=== PATIENT | male | born 1985 | race Caucasian/White ===

== ENCOUNTER 2016-09-04 00:52 | Emergency (ER) | payer SELFPAY ==
[2016-09-04 01:06] VITALS: BP 123/71
--- NOTE | 2016-09-04 02:15 | EDM.PDOC ---
ED HPI Behavioral Health - General Chief Complaint: Behavioral/Psych Stated Complaint: ANXIETY/DEPRESSION Time Seen by Provider: 09/04/16 01:08 Source of Information: Reports: Patient, RN notes reviewed Exam Limitations: Reports: No limitations - History of Present Illness INITIAL COMMENTS - FREE TEXT/NARRATIVE: The patient states that she broke up with his girlfriend, with whom he was living in [place], 2 days ago, 09/02/2016, then came to [place]. He states that he has family here, but they do not get along, therefore he is homeless. He came to the ED, looking for a place to sleep. He states that he does not have any medical concerns. He is not suicidal or homicidal. He states that he is feeling anxious, because he left his Klonopin back in [place]. He did not contact his prescribing physician, Dr. Timmons, to see if he could get a refill. Public records indicate that the patient was arrested 09/01/2016 for drug charges. - Related Data Allergies Allergy/AdvReac Type Severity Reaction Status Date / Time acetaminophen [From Tylenol] Allergy Other Verified 09/04/16 01:06 ibuprofen Allergy Swelling Verified 09/04/16 01:06 Home Medications: Home Meds ClonazePAM [KlonoPIN] 1 mg PO BEDTIME 11/12/14 [History] Past Medical History Gastrointestinal History: Reports: PUD Psychiatric History: Reports: Anxiety, Depression - Infectious Disease History Infectious Disease History: Reports: Hepatitis C - Past Surgical History GI Surgical History: Reports: Cholecystectomy, Colonoscopy, EGD Social & Family History - Family History Family Medical History: Noncontributory - Tobacco Use Smoking Status *Q: Current Every Day Smoker Years of Tobacco use: 10 Packs/Tins Daily: 1 - Caffeine Use Caffeine Use: Reports: Coffee - Alcohol Use Alcohol Use History: No Days Per Week of Alcohol Use: 0 - Recreational Drug Use Recreational Drug Use: Yes Drug Use in Last 12 Months: Yes Recreational Drug Type: Reports: Marijuana/Hashish, Methamphetamine Recreational Drug Use Frequency: Daily - Living Situation & Occupation Living situation: Reports: single, alone (Homeless) Occupation: unemployed ED ROS GENERAL - Review of Systems Review Of Systems: See Below Constitutional: Reports: no symptoms HEENT: Reports: Other (Recent viral URI symptoms) Respiratory: Reports: No Symptoms Cardiovascular: Reports: No symptoms Endocrine: Reports: no symptoms GI/Abdominal: Reports: No symptoms : Reports: no symptoms Musculoskeletal: Reports: no symptoms Skin: Reports: no symptoms Neurological: Reports: No Symptoms Psychiatric: Reports: Anxiety Hematologic/Lymphatic: Reports: no symptoms Immunologic: Reports: no symptoms ED EXAM, BEHAVIORAL HEALTH - Physical Exam Exam: See Below Exam Limited By: No limitations General Appearance: alert, WD/WN, no apparent distress Eye Exam: bilateral eye: EOMI, normal inspection Ears: normal external exam, hearing grossly normal Nose: normal inspection, no blood Throat/Mouth: Normal inspection, Normal lips, Normal voice, No airway compromise Head: atraumatic, normocephalic Neck: normal inspection, full range of motion Respiratory/Chest: no respiratory distress, lungs clear, normal breath sounds, no accessory muscle use Cardiovascular: normal peripheral pulses, regular rate, rhythm, no gallop, no JVD, no murmur, no rub GI/Abdominal: normal bowel sounds, soft, non tender, no organomegaly, no distention, no abnormal bruit, no mass (Male) Exam: Deferred Rectal (Males) Exam: Deferred Back Exam: normal inspection, full range of motion, NT Extremities: normal inspection, normal range of motion, no pedal edema, normal capillary refill Neurological: alert, normal cognition, no motor/sensory deficits, oriented x 3 Psychiatric: normal affect Skin Exam: Warm, Dry, Intact, Normal color, No rash COURSE, BEHAVIORAL HEALTH COMP - Course Vital Signs: Last Vital Signs Temp 36.1 C 09/04/16 01:02 Pulse 85 09/04/16 01:02 Resp 16 09/04/16 01:02 BP 123/71 09/04/16 01:02 Pulse Ox 98 09/04/16 01:02 Re-Assessment/Re-Exam: The patient is here because he is homeless, and is looking for a place to sleep. He has no medical concerns. The patient is also complaining of anxiety , stating that he left his Klonopin back in [place], however, he made no effort to reach his prescribing physician yesterday. I believe it would be inappropriate to prescribe him Klonopin. He can contact his PCP in the morning. The police are here in the ED for a different matter, and informed us that they have hotel vouchers. They are willing to give the patient one. Departure - Departure Time of Disposition: 02:12 Disposition: Home, Self-Care 01 Condition: good Clinical Impression: Homeless, Anxiety Referrals: Gm Timmons MD [Primary Care Provider] - Forms: ED Department Discharge Additional Instructions: You were seen in the emergency room for homelessness and anxiety. The police have provided you with a hotel voucher. Contact your PCP, Dr. Timmons, in the morning to arrange for a refill of your Klonopin. If any other problems, please do not hesitate to return to the ER.
== END 2016-09-04 02:30 | disposition home or self-care (01) ==
LOC: JD.ED 00:52
DX: F41.9 Anxiety disorder, unspecified (principal); Z59.0 Homelessness; F17.210 Nicotine dependence, cigarettes, uncomplicated; F32.9 Major depressive disorder, single episode, unspecified; Z88.6 Allergy status to analgesic agent
CPT/HCPCS: 99282; 99283

== ENCOUNTER 2017-02-26 03:06 | Emergency (ER) | payer MEDICAID ==
[2017-02-26] MEDS ORDERED: cloNIDine 0.1 MG Tab PO ONE (03:19)
[2017-02-26] MEDS ORDERED: Ondansetron 4 MG Tab.DIS PO ONE (03:20)
[2017-02-26] MEDS ORDERED: LORazepam 1 MG Tab PO ONE (03:20)
--- NOTE | 2017-02-26 03:24 | EDM.PDOCBH ---
ED HPI GENERAL MEDICAL PROBLEM - General Chief Complaint: Drug or Alcohol Abuse Stated Complaint: anxiety attack Time Seen by Provider: 02/26/17 03:19 Source of Information: Reports: Patient History Limitations: Reports: No Limitations - History of Present Illness INITIAL COMMENTS - FREE TEXT/NARRATIVE: 31-year-old male presents the ED essentially suffering from drug withdrawal. Patient admits to being an addict hand primarily using methamphetamines but also opiates in the way of her when. Last use was yesterday. Used both methamphetamines and heroin. Awoke yesterday morning with vomiting and has had 3 -4 loose watery stools since. Persistent rhinorrhea. Agitation and restlessness and unable to relax her fall asleep. He has appoint with [facility] later this morning to pursue a placement for drug and alcohol addiction. Came to the ED seeking some resolution of the symptoms as these findings and quite intolerable. Intermittent abdominal cramping pain and feeling anxious. Usually uses Klonopin 1 mg morning and bedtime which have controlled his symptoms in the past of anxiety and craving for drugs. Onset: Sudden Onset Date: 02/25/17 Duration: Hour(s): (Has been having symptoms for about 16 hours.) Location: Reports: Generalized Quality: Reports: Ache Severity: Moderate Improves with: Reports: None Context: Reports: Other (Drug withdrawal from opiates and methamphetamine.) Associated Symptoms: Reports: Diaphoresis, Loss of Appetite, Malaise, Nausea/ Vomiting, Other (Diarrhea and abdominal cramps.). 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: Other (see below) (None.) Generalized Pain Score (Numeric/FACES): 8 - Related Data Allergies Allergy/AdvReac Type Severity Reaction Status Date / Time acetaminophen [From Tylenol] Allergy Other Verified 09/04/16 01:06 ibuprofen Allergy Swelling Verified 09/04/16 01:06 Home Meds: Home Meds ClonazePAM [KlonoPIN] 1 mg PO BEDTIME 11/12/14 [History] ClonazePAM [KlonoPIN] 1 mg PO BID #20 tab 02/26/17 [Rx] Past Medical History - Past Health History Medical/Surgical History: Denies Medical/Surgical History Gastrointestinal History: Reports: PUD Other Gastrointestinal History: Ulcerative cholistis Psychiatric History: Reports: Anxiety, Depression - Infectious Disease History Infectious Disease History: Reports: Hepatitis C - Past Surgical History GI Surgical History: Reports: Cholecystectomy, Colonoscopy, EGD Social & Family History - Family History Family Medical History: Noncontributory - Tobacco Use Smoking Status *Q: Current Every Day Smoker Years of Tobacco use: 10 Packs/Tins Daily: 1 Used Tobacco, but Quit: No Month Tobacco Last Used: May Second Hand Smoke Exposure: Yes - Caffeine Use Caffeine Use: Reports: Coffee - Alcohol Use Days Per Week of Alcohol Use: 0 - Recreational Drug Use Recreational Drug Use: Yes Drug Use in Last 12 Months: Yes Recreational Drug Type: Reports: Marijuana/Hashish, Methamphetamine Recreational Drug Use Frequency: Daily Recreational Drug Last Use: February - Living Situation & Occupation Living situation: Reports: Single, Alone Occupation: Unemployed ED ROS GENERAL - Review of Systems Review Of Systems: See Below Constitutional: Reports: Chills, Malaise, Weakness, Fatigue, Decreased Appetite , Weight Loss. Denies: Fever HEENT: Reports: No Symptoms (Excessive runny nose of clear secretions.), Rhinitis Respiratory: Reports: Shortness of Breath, Cough. Denies: Wheezing, Pleuritic Chest Pain (Subjective feeling of being short of breath.), Sputum (Occasional cough due to cigarette smoking.), Hemoptysis Cardiovascular: Reports: Lightheadedness, Palpitations. Denies: Chest Pain, Blood Pressure Problem, Claudication, Orthopnea Endocrine: Reports: Fatigue GI/Abdominal: Reports: Abdominal Pain, Diarrhea (Loose stools. No blood noted), Nausea (Cramping primarily.), Vomiting : Reports: No Symptoms Musculoskeletal: Reports: Joint Pain (Particularly his knees and lower extremities. Feels lower extremities to be quite restless) Skin: Reports: Diaphoresis Neurological: Reports: Headache, Weakness. Denies: Numbness, Paresthesia, Pre- Existing Deficit, Seizure, Tingling, Tremors, Trouble Speaking Psychiatric: Reports: Agitation, Anxiety (Mild), Cravings (States he does feel like using medicated drugs at this time), Mood Lability. Denies: Hallucinations , Homicidal Ideation, Suicidal Ideation ( as part of the reason he came to the hospital.) Hematologic/Lymphatic: Reports: No Symptoms Immunologic: Reports: No Symptoms ED EXAM, BEHAVIORAL HEALTH - Physical Exam Exam: See Below Exam Limited By: No Limitations General Appearance: Alert, WD/WN, Anxious, Mild Distress Eye Exam: Bilateral Eye: Normal Inspection (No jaundice or nystagmus.) Nose: Other (Does have the snuffles with profuse clear rhinorrhea) Throat/Mouth: Normal Inspection, Normal Lips, Normal Oropharynx, Other Head: Atraumatic, Normocephalic (Tongue is coated and dry) Neck: Normal Inspection, Supple, Non-Tender, Full Range of Motion. No: Lymphadenopathy (L), Lymphadenopathy (R) Respiratory/Chest: No Respiratory Distress, Lungs Clear, Normal Breath Sounds, No Accessory Muscle Use Cardiovascular: Normal Peripheral Pulses, Regular Rate, Rhythm, No Edema, No Rub , Tachycardia GI/Abdominal: Normal Bowel Sounds, Soft, Non-Tender, No Organomegaly, No Distention, No Abnormal Bruit, No Mass, Pelvis Stable Back Exam: Normal Inspection, Full Range of Motion. No: CVA Tenderness (L), CVA Tenderness (R) Extremities: Other (Evidence of needle track pandya both antecubital fossa zone forearms.) Neurological: Alert, Normal Cognition, Normal Gait, Normal Reflexes, No Motor/ Sensory Deficits, Oriented x 3 Psychiatric: Normal Affect, Normal Cognition, Normal Mood, Oriented. No: Mu-Ism Delusions, Suicidal Thoughts, Tangential Thoughts, Auditory Hallucinations, Visual Hallucinations Skin Exam: Warm, Dry, Intact, Normal color, Other (No signs of infiltrate marked infections.) COURSE, BEHAVIORAL HEALTH COMP - Course Vital Signs: Last Vital Signs Temp 36.9 C 02/26/17 03:13 Pulse 102 H 02/26/17 03:13 Resp 18 02/26/17 03:13 BP 145/92 H 02/26/17 03:27 Pulse Ox 100 02/26/17 03:13 Orders, Labs, Meds: Medications Discontinued Medications Generic Name Dose Route Start Last Admin Trade Name Freq PRN Reason Stop Dose Admin Clonidine HCl 0.1 mg 02/26/17 03:19 02/26/17 03:27 Catapres PO 02/26/17 03:20 0.1 mg ONETIME ONE Administration Lorazepam 1 mg 02/26/17 03:20 02/26/17 03:28 Ativan PO 02/26/17 03:21 1 mg ONETIME ONE Administration Ondansetron HCl 4 mg 02/26/17 03:20 02/26/17 03:27 Zofran Odt PO 02/26/17 03:21 4 mg ONETIME ONE Administration Re-Assessment/Re-Exam: 31-year-old male who has chronic problems with addiction to drugs position of the ED primarily with drug withdrawal symptoms. Last used heroin and methamphetamines the day before yesterday. Awoke yesterday morning with nausea and vomiting. Socially he developed abdominal cramping pain and loose watery stools and profuse rhinorrhea. Those restless and anxious and aching in his lower extremities feels restless legs. Usually is on Klonopin 1 mg twice a day but he's not been on this for a couple of weeks since he left [place] where his primary care physician is. Other than mild resting tachycardia he appears to be functioning fairly well. Plan Zofran 4 mg sublingual. Clonidine 0.1 mg by mouth with Ativan 1 mg by mouth. Patient is to meet his father at 0630 hrs. with plans to attend [facility] when it opens this morning as he has no appointment to meet and drug addiction counselor. Re-Assessment/Re-Exam Date: 02/26/17 (Patient has been able to sleep in the department for the last hour and a half. He'll be discharged shortly as he has plans to meet up with his father at 0630 hrs. Plans are to follow-up with [facility] o'clock this morning.) Departure - Departure Time of Disposition: 07:00 Disposition: Home, Self-Care 01 Condition: Fair Clinical Impression: Drug withdrawal Qualifiers: Substance type: opioid Qualified Code(s): F11.23 - Opioid dependence with withdrawal - Discharge Information Prescriptions: ClonazePAM [KlonoPIN] 1 mg PO BID #20 tab Instructions: Chemical Dependency Referrals: PCP,None [Primary Care Provider] - Additional Instructions: Evaluation the emergency room this morning in regards to acute symptoms secondary to withdrawal from opiates and methamphetamine that is been used in the last several days. Symptoms of nausea vomiting and restlessness diarrhea and marked rhinorrhea identified. There treated with Klonopin 0.1 mg by mouth with Ativan 1 mg by mouth in the ED and Zofran 4 mg under the tongue to provide relief of nausea. I did write a prescription for Klonopin 1 mg bedtime and morning as you have been taking this prior. 20 tablets were provided. He'll need to follow-up with primary care physician or psychiatrist for further medication in this regard.
[2017-02-26 03:28] VITALS: BP 145/92
== END 2017-02-26 07:56 | disposition home or self-care (01) ==
LOC: JD.ED 03:06
DX: F11.23 Opioid dependence with withdrawal (principal); F32.9 Major depressive disorder, single episode, unspecified; Z90.49 Acquired absence of other specified parts of digestive tract; F17.210 Nicotine dependence, cigarettes, uncomplicated; Z88.6 Allergy status to analgesic agent
CPT/HCPCS: 99284; A9270

== ENCOUNTER 2017-04-12 04:30 | Emergency (ER) | payer MEDICAID ==
[2017-04-12] MEDS ORDERED: Lactated Ringers 1,000 ML IV ONE (05:34)
[2017-04-12] MEDS ORDERED: Ondansetron 4 MG/2 ML SDV IVPUSH ONE (05:34)
--- NOTE | 2017-04-12 05:34 | EDM.PDOC ---
<Mohan Mcginnis - Last Filed: 04/12/17 05:25> ED HPI GENERAL MEDICAL PROBLEM - General Chief Complaint: Abdominal Pain Stated Complaint: SEVERE ABDOMINAL PAIN ULCER AND COLD SYMPTOMS Time Seen by Provider: 04/12/17 05:25 Abdomen Pain Score (Numeric/FACES): 8 - Related Data Allergies Allergy/AdvReac Type Severity Reaction Status Date / Time acetaminophen [From Tylenol] Allergy Other Verified 04/12/17 04:44 ibuprofen Allergy Swelling Verified 04/12/17 04:44 Home Meds: Home Meds ClonazePAM [KlonoPIN] 1 mg PO TID 04/12/17 [History] Omeprazole Magnesium [Prilosec Otc] 20 mg PO DAILY 04/12/17 [History] Ondansetron [Zofran ODT] 4 mg PO Q6H PRN #20 tab.dis 04/12/17 [Rx] Sulfamethoxazole/Trimethoprim [Bactrim Ds Tablet] 1 each PO BID #6 tablet [Rx] traMADol [Ultram] 50 - 100 mg PO Q6H PRN #10 tablet 04/12/17 [Rx] Past Medical History - Past Health History Medical/Surgical History: Denies Medical/Surgical History Gastrointestinal History: Reports: Hepatitis, PUD Other Gastrointestinal History: Ulcerative cholistis Musculoskeletal History: Reports: Fracture Neurological History: Reports: Migraines, Seizure Psychiatric History: Reports: Anxiety, Depression - Infectious Disease History Infectious Disease History: Reports: Hepatitis C - Past Surgical History GI Surgical History: Reports: Cholecystectomy, Colonoscopy, EGD Musculoskeletal Surgical History: Reports: ORIF Social & Family History - Family History Family Medical History: Noncontributory - Tobacco Use Smoking Status *Q: Current Some Day Smoker Years of Tobacco use: 20 Packs/Tins Daily: 0.2 Used Tobacco, but Quit: No Month Tobacco Last Used: May Second Hand Smoke Exposure: Yes - Caffeine Use Caffeine Use: Reports: None - Alcohol Use Days Per Week of Alcohol Use: 0 - Recreational Drug Use Recreational Drug Use: No Drug Use in Last 12 Months: Yes Recreational Drug Type: Reports: Marijuana/Hashish, Methamphetamine Recreational Drug Use Frequency: Daily Recreational Drug Last Use: February - Living Situation & Occupation Living situation: Reports: Single, Alone Occupation: Unemployed Course - Vital Signs Last Recorded V/S: Last Vital Signs Temp 98 F 04/12/17 04:39 Pulse 100 11/24/17 04:39 Resp 16 04/12/17 04:39 BP 144/94 H 04/12/17 04:39 Pulse Ox 94 L 04/12/17 04:39 - Orders/Labs/Meds Orders: Active Orders 24 hr Category Date Time Status Sodium Chloride 0.9% [Normal Saline] 1,000 ml Med 04/12/17 07:15 Active IV ASDIRECTED Medication Orders Sodium Chloride (Normal Saline) 1,000 mls @ 200 mls/hr IV ASDIRECTED SIVAKUMAR Last Admin: 04/12/17 07:17 Dose: 200 mls/hr Labs: Laboratory Tests 04/12/17 04/12/17 04/12/17 Range/Units 05:30 05:40 05:40 WBC 7.39 (4.23-9.07) K/mm3 RBC 5.06 (4.63-6.08) M/mm3 Hgb 15.2 (13.7-17.5) gm/L Hct 43.9 (40.1-51.0) % MCV 86.8 (79.0-92.2) fl MCH 30.0 (25.7-32.2) pg MCHC 34.6 (32.2-35.5) g/dl RDW Std Deviation 44.8 H (35.1-43.9) fL Plt Count 251 (163-337) K/mm3 MPV 8.9 L (9.4-12.3) fl Neutrophils % (Manual) 62 H (40-60) % Band Neutrophils % 0 (0-10) % Lymphocytes % (Manual) 30 (20-40) % Atypical Lymphs % 0 % Monocytes % (Manual) 5 (2-10) % Eosinophils % (Manual) 1 (0.8-7.0) % Basophils % (Manual) 2 H (0.2-1.2) Platelet Estimate Adequate Plt Morphology Comment Normal RBC Morph Comment Normal Sodium 141 (136-145) mEq/L Potassium 3.4 L (3.5-5.1) mEq/L Chloride 104 (98-107) mEq/L Carbon Dioxide 27 (21-32) mEq/L Anion Gap 13.4 (5-15) BUN 17 (7-18) mg/dL Creatinine 0.9 (0.7-1.3) mg/dL Est Cr Clr Drug Dosing 111.19 mL/min Estimated GFR (MDRD) > 60 (>60) mL/min BUN/Creatinine Ratio 18.9 H (14-18) Glucose 102 (74-106) mg/dL Calcium 9.3 (8.5-10.1) mg/dL Total Bilirubin 0.9 (0.2-1.0) mg/dL AST 45 H (15-37) U/L ALT 69 H (16-63) U/L Alkaline Phosphatase 63 (46-116) U/L C-Reactive Protein < 0.2 (<1.0) mg/dL Total Protein 7.8 (6.4-8.2) g/dl Albumin 4.2 (3.4-5.0) g/dl Globulin 3.6 gm/dL Albumin/Globulin Ratio 1.2 (1-2) Lipase 280 (73-393) U/L Urine Color (Yellow) Urine Appearance (Clear) Urine pH (5.0-8.0) Ur Specific Struthers (1.005-1.030) Urine Protein (Negative) Urine Glucose (UA) (Negative) Urine Ketones (Negative) Urine Occult Blood (Negative) Urine Nitrite (Negative) Urine Bilirubin (Negative) Urine Urobilinogen (0.2-1.0) Ur Leukocyte Esterase (Negative) Urine RBC (0-5) /hpf Urine WBC (0-5) /hpf Ur Epithelial Cells (0-5) /hpf Urine Bacteria (FEW) /hpf Urine Mucus (FEW) /hpf C.difficile [id number] Presumptive negative C. difficile Tox (PCR) Negative 04/12/17 Range/Units 07:15 WBC (4.23-9.07) K/mm3 RBC (4.63-6.08) M/mm3 Hgb (13.7-17.5) gm/L Hct (40.1-51.0) % MCV (79.0-92.2) fl MCH (25.7-32.2) pg MCHC (32.2-35.5) g/dl RDW Std Deviation (35.1-43.9) fL Plt Count (163-337) K/mm3 MPV (9.4-12.3) fl Neutrophils % (Manual) (40-60) % Band Neutrophils % (0-10) % Lymphocytes % (Manual) (20-40) % Atypical Lymphs % % Monocytes % (Manual) (2-10) % Eosinophils % (Manual) (0.8-7.0) % Basophils % (Manual) (0.2-1.2) Platelet Estimate Plt Morphology Comment RBC Morph Comment Sodium (136-145) mEq/L Potassium (3.5-5.1) mEq/L Chloride (98-107) mEq/L Carbon Dioxide (21-32) mEq/L Anion Gap (5-15) BUN (7-18) mg/dL Creatinine (0.7-1.3) mg/dL Est Cr Clr Drug Dosing mL/min Estimated GFR (MDRD) (>60) mL/min BUN/Creatinine Ratio (14-18) Glucose (74-106) mg/dL Calcium (8.5-10.1) mg/dL Total Bilirubin (0.2-1.0) mg/dL AST (15-37) U/L ALT (16-63) U/L Alkaline Phosphatase (46-116) U/L C-Reactive Protein (<1.0) mg/dL Total Protein (6.4-8.2) g/dl Albumin (3.4-5.0) g/dl Globulin gm/dL Albumin/Globulin Ratio (1-2) Lipase (73-393) U/L Urine Color Yellow (Yellow) Urine Appearance Clear (Clear) Urine pH 7.0 (5.0-8.0) Ur Specific Struthers 1.010 (1.005-1.030) Urine Protein Negative (Negative) Urine Glucose (UA) Negative (Negative) Urine Ketones Negative (Negative) Urine Occult Blood Negative (Negative) Urine Nitrite Negative (Negative) Urine Bilirubin Negative (Negative) Urine Urobilinogen 0.2 (0.2-1.0) Ur Leukocyte Esterase Negative (Negative) Urine RBC 0-5 (0-5) /hpf Urine WBC Not seen (0-5) /hpf Ur Epithelial Cells 0-5 (0-5) /hpf Urine Bacteria Not seen (FEW) /hpf Urine Mucus Not seen (FEW) /hpf C.difficile [id number] C. difficile Tox (PCR) Meds: Medications Generic Name Dose Route Start Last Admin Trade Name Freq PRN Reason Stop Dose Admin Sodium Chloride 1,000 mls @ 200 mls/hr 04/12/17 07:15 04/12/17 07:17 Normal Saline IV 200 mls/hr ASDIRECTED SIVAKUMAR Administration Discontinued Medications Generic Name Dose Route Start Last Admin Trade Name Kallie PRN Reason Stop Dose Admin Hydromorphone HCl 1 mg 04/12/17 07:07 04/12/17 07:14 Dilaudid IVPUSH 04/12/17 07:08 1 mg ONETIME ONE Administration Lactated Ringer's 1,000 mls @ 999 mls/hr 04/12/17 05:34 04/12/17 05:52 Ringers, Lactated IV 04/12/17 06:34 999 mls/hr .BOLUS ONE Administration Ondansetron HCl 4 mg 04/12/17 05:34 04/12/17 05:53 Zofran IVPUSH 04/12/17 05:35 4 mg ONETIME ONE Administration Departure - Departure Disposition: Home, Self-Care 01 Clinical Impression: Abdominal pain, Gastroenteritis - Discharge Information Prescriptions: Ondansetron [Zofran ODT] 4 mg PO Q6H PRN #20 tab.dis PRN Reason: Nausea/Vomiting Sulfamethoxazole/Trimethoprim [Bactrim Ds Tablet] 1 each PO BID #6 tablet traMADol [Ultram] 50 - 100 mg PO Q6H PRN #10 tablet PRN Reason: Pain Referrals: Mitch Horan Jr, MD [Primary Care Provider] - Forms: ED Department Discharge, ED Return to Work/School Form Additional Instructions: Take the bactrim 2 times per day for 3 days. Take the zofran for nausea or vomiting if you get any. Take the ultram for any abdominal cramps. Please return if you are worse. Follow up with your doctor next week. - My Orders Last 24 Hours: My Active Orders 04/12/17 07:15 Sodium Chloride 0.9% [Normal Saline] 1,000 ml IV ASDIRECTED - Assessment/Plan Last 24 Hours: My Active Orders 04/12/17 07:15 Sodium Chloride 0.9% [Normal Saline] 1,000 ml IV ASDIRECTED <Gm Mujica - Last Filed: 04/12/17 08:22> ED HPI GENERAL MEDICAL PROBLEM - General Source of Information: Reports: Patient History Limitations: Reports: No Limitations - History of Present Illness INITIAL COMMENTS - FREE TEXT/NARRATIVE: The patient presents with abdominal pain and diarrhea. He noticed some blood in it. He denies nausea or vomiting at this time. He does have a history of colitis and hepatitis C. He has no fever, chills, chest pain, and shortness of breath. He has no dysuria. He has no hematuria. He still has his appendix and gallbladder. Onset: Gradual Duration: Day(s): (Yesterday) Location: Reports: Abdomen Quality: Reports: Sharp Severity: Moderate Improves with: Reports: None Worsens with: Reports: None Associated Symptoms: Denies: Chest Pain, Fever/Chills, Nausea/Vomiting, Shortness of Breath ED ROS GENERAL - Review of Systems Review Of Systems: See Below Constitutional: Reports: No Symptoms HEENT: Reports: No Symptoms Respiratory: Reports: No Symptoms Cardiovascular: Reports: No Symptoms Endocrine: Reports: No Symptoms GI/Abdominal: Reports: Abdominal Pain, Diarrhea. Denies: Nausea, Vomiting Musculoskeletal: Reports: No Symptoms ED EXAM, GI/ABD - Physical Exam Exam: See Below Exam Limited By: No Limitations General Appearance: Alert, No Apparent Distress Ears: Normal External Exam Nose: Normal Inspection Head: Atraumatic, Normocephalic Neck: Normal Inspection Respiratory/Chest: No Respiratory Distress, Lungs Clear, Normal Breath Sounds Cardiovascular: Regular Rate, Rhythm, No Edema, No Murmur GI/Abdominal Exam: Soft, No Organomegaly, No Mass, Tender (generalized) Back Exam: Normal Inspection Extremities: Normal Inspection Course - Re-Assessments/Exams Free Text/Narrative Re-Assessment/Exam: 04/12/17 08:17 I am taking over for Dr Mcginnis. I ordered some dilaudid for the patient. His CBC was normal. His K was a little low at 3.4. His AST was slightly elevated at 45. His ALT was elevated at 69. His lipase was negative. His UA shows no UTI. His c-dif was negative. Departure - Departure Time of Disposition: 08:20 Condition: Good
[2017-04-12] MEDS ORDERED: HYDROmorphone 1 MG/ML Syringe IVPUSH ONE (07:07)
[2017-04-12] MEDS ORDERED: Sodium Chloride 0.9% 1,000 ML IV SCH (07:15)
[2017-04-12 08:13] VITALS: BP 135/102
== END 2017-04-12 08:30 | disposition home or self-care (01) ==
LOC: JD.ED 04:30
DX: K52.9 Noninfective gastroenteritis and colitis, unspecified (principal); F17.210 Nicotine dependence, cigarettes, uncomplicated; Z86.19 Personal history of other infectious and parasitic diseases; Z88.6 Allergy status to analgesic agent; Z79.899 Other long term (current) drug therapy
CPT/HCPCS: 36415; 80053; 81001; 83690; 85025; 86140; 87493; 96361; 96374; 96375; 99284; J1170; J2405; J7040; J7120

== ENCOUNTER 2017-05-05 11:43 | Emergency (ER) | payer MEDICAID ==
[2017-05-05 11:59] VITALS: BP 146/101
[2017-05-05] MEDS ORDERED: Diphtheria,Pertussis(Acell),Tetanus Vaccine 0.5 ML SDV IM ONE (12:26)
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
[2017-05-05] MEDS ORDERED: Acetaminophen 325 MG Tab PO STA (13:24)
--- NOTE | 2017-05-05 13:25 | CT ---
Head CT Technique: Multiple axial sections through the brain were obtained. Intravenous contrast was not utilized. Comparison: Previous head CT exam of 12/18/08. Findings: Ventricles along with basal cisterns and sulci over convexities are mildly prominent. No abnormal parenchymal densities are seen. No evidence of intracranial hemorrhage. No midline shift or mass effect is seen. No acute calvarial abnormality is seen. No acute sinus finding is seen. Impression: 1. No acute intracranial abnormality is seen. Diagnostic code #1
--- NOTE | 2017-05-05 13:25 | CT ---
CT facial bones Technique: Multiple axial sections were obtained through the facial bones. Reconstructed coronal and sagittal images were reviewed. Findings: Mild mucosal thickening seen within the inferior left maxillary sinus. Paranasal sinuses shows no air-fluid levels. Mastoid sinuses and middle ear cavities are clear. No facial bone fracture is seen. Soft tissue injury is identified anterior to the mandible. Impression: 1. Incidental findings. No acute bony abnormality is seen on CT study of the facial bones. Diagnostic code #2
[2017-05-05] MEDS ORDERED: Lidocaine 1% 50 ML MDV INJECT STA (13:29)
== END 2017-05-05 16:05 | disposition home or self-care (01) ==
LOC: JD.ED 11:43
DX: S01.511A Laceration without foreign body of lip, initial encounter (principal); Z88.6 Allergy status to analgesic agent; Z23 Encounter for immunization; W51.XXXA Accidental striking against or bumped into by another person, initial encounter; Y92.009 Unspecified place in unspecified non-institutional (private) residence as the place of occurrence of the external cause
CPT/HCPCS: 12013; 70450; 70486; 90471; 90715; 99284; A9270; 99282-25

== ENCOUNTER 2017-06-09 09:17 | Emergency (ER) | payer MEDICAID ==
[2017-06-09 09:34] VITALS: BP 117/71
[2017-06-09] MEDS ORDERED: Ketorolac 0.5% Ophth Soln 5 ML Bottle EYELF ONE (10:35)
[2017-06-09] MEDS ORDERED: Ciprofloxacin 0.3% Ophth Soln 2.5 ML Bottle EYEBOTH ONE (10:36)
[2017-06-09] MEDS ORDERED: HYDROmorphone 1 MG/ML Syringe IM ONE (10:37)
[2017-06-09] MEDS ORDERED: Promethazine 25 MG/ML SDV IM ONE (10:37)
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
== END 2017-06-09 11:04 | disposition home or self-care (01) ==
LOC: JD.ED 09:17
DX: H16.133 Photokeratitis, bilateral (principal); F17.210 Nicotine dependence, cigarettes, uncomplicated; Z79.899 Other long term (current) drug therapy; Z88.6 Allergy status to analgesic agent; W89.8XXA Exposure to other man-made visible and ultraviolet light, initial encounter
CPT/HCPCS: 96372; 99283; A9270; J1170; J2550

== ENCOUNTER 2017-06-12 13:26 | Emergency (ER) | payer MEDICAID ==
[2017-06-12 13:41] VITALS: BP 129/82
--- NOTE | 2017-06-12 13:58 | EDM.PDOC ---
ED HPI GENERAL MEDICAL PROBLEM - General Chief Complaint: Gastrointestinal Problem Stated Complaint: VOMITING/ABDOMINAL PAIN Time Seen by Provider: 06/12/17 13:58 Source of Information: Reports: Patient - History of Present Illness INITIAL COMMENTS - FREE TEXT/NARRATIVE: Patient comes in today for evaluation for abdominal pain, nausea and vomiting. He states that his symptoms started last night with "burps that tasted like sulfur". Patient is currently having epigastric stomach pain, he denies any current heartburn or reflux symptoms. He is feeling nauseated and did vomit this morning. He denies any diarrhea. Patient states that he does have a history of GERD, had eaten some spicy chips. He does smoke as well, possibly one half pack cigarettes per day. He denies any alcohol intake, states he has not had alcohol in many years. He smokes marijuana on occasion, the last incident was approximately a month ago. He did have a history of meth use which was last using February, cocaine use many years ago. He also has a history of injecting these drugs which is how he contracted hepatitis C. He got this diagnosis approximately 2 years ago, he has not had any treatment for his hepatitis C but now has insurance and his PCP Dr. Horan has referred him to infectious disease/Dr. Herndon at [facility] in [place]. Patient has been told that he has a "bad liver" due to his hepatitis. Left Upper Abdomen Pain Score (Numeric/FACES): 10 - Related Data Allergies Allergy/AdvReac Type Severity Reaction Status Date / Time acetaminophen [From Tylenol] Allergy Other Verified 06/12/17 13:35 ibuprofen Allergy Swelling Verified 06/12/17 13:35 Home Meds: Home Meds ClonazePAM [KlonoPIN] 1 mg PO TID 04/12/17 [History] Omeprazole Magnesium [Prilosec Otc] 20 mg PO DAILY 04/12/17 [History] Sucralfate [Carafate] 1 gm PO TID #90 tablet 06/12/17 [Rx] Past Medical History - Past Health History Medical/Surgical History: Denies Medical/Surgical History Gastrointestinal History: Reports: GERD, Hepatitis, PUD Other Gastrointestinal History: Ulcerative colitis Musculoskeletal History: Reports: Fracture Other Musculoskeletal History: right hand Neurological History: Reports: Migraines, Seizure Psychiatric History: Reports: Anxiety, Depression - Infectious Disease History Infectious Disease History: Reports: Hepatitis C - Past Surgical History GI Surgical History: Reports: Cholecystectomy, Colonoscopy, EGD Musculoskeletal Surgical History: Reports: ORIF Social & Family History - Family History Family Medical History: Noncontributory - Tobacco Use Smoking Status *Q: Current Every Day Smoker Years of Tobacco use: 15 Packs/Tins Daily: 0.5 Used Tobacco, but Quit: No Month Tobacco Last Used: May Second Hand Smoke Exposure: No - Caffeine Use Caffeine Use: Reports: Coffee - Alcohol Use Days Per Week of Alcohol Use: 0 - Recreational Drug Use Recreational Drug Use: Yes Drug Use in Last 12 Months: Yes Recreational Drug Type: Reports: Marijuana/Hashish Recreational Drug Use Frequency: Binges Recreational Drug Last Use: February - Living Situation & Occupation Living situation: Reports: Single, Alone Occupation: Unemployed ED ROS GENERAL - Review of Systems Review Of Systems: See Below Constitutional: Reports: Weakness, Fatigue, Decreased Appetite. Denies: Fever, Chills, Malaise HEENT: Reports: No Symptoms Respiratory: Reports: No Symptoms Cardiovascular: Reports: No Symptoms Endocrine: Reports: No Symptoms GI/Abdominal: Reports: Abdominal Pain, Decreased Appetite, Nausea, Vomiting. Denies: Black Stool, Bloody Stool, Diarrhea, Difficulty Swallowing, Hematemesis , Hematochezia, Melena Musculoskeletal: Reports: No Symptoms Skin: Reports: No Symptoms Neurological: Reports: No Symptoms Psychiatric: Reports: No Symptoms Hematologic/Lymphatic: Reports: No Symptoms ED EXAM, GI/ABD - Physical Exam Exam: See Below General Appearance: Alert, WD/WN, Mild Distress Ears: Normal External Exam, Normal Canal, Normal TMs Nose: Normal Inspection, Normal Mucosa Throat/Mouth: Normal Inspection, Normal Oropharynx, Normal Voice Head: Atraumatic, Normocephalic Neck: Normal Inspection, Supple, Non-Tender Respiratory/Chest: No Respiratory Distress, Lungs Clear, Normal Breath Sounds Cardiovascular: Normal Peripheral Pulses, Regular Rate, Rhythm, No Murmur GI/Abdominal Exam: Normal Bowel Sounds, Soft, Tender (Diffuse mild tenderness, moderate epigastric tenderness. ) Neurological: Alert, Oriented Psychiatric: Normal Affect, Normal Mood Skin Exam: Warm, Dry, Intact Lymphatic: No Adenopathy Course - Vital Signs Last Recorded V/S: Last Vital Signs Temp 97.3 F 06/12/17 13:37 Pulse 88 06/12/17 13:37 Resp 12 06/12/17 13:37 BP 129/82 06/12/17 13:37 Pulse Ox 97 06/12/17 13:37 - Orders/Labs/Meds Orders: Active Orders 24 hr Category Date Time Status DRUG SCREEN, URINE [URCHEM] Stat Lab 06/12/17 16:18 Ordered Sodium Chloride 0.9% [Saline Flush] Med 06/12/17 16:36 Active 10 ml FLUSH ONETIME PRN Medication Orders Sodium Chloride (Saline Flush) 10 ml FLUSH ONETIME PRN PRN Reason: IV FLUSH Last Admin: 06/12/17 16:47 Dose: 10 ml Labs: Laboratory Tests 06/12/17 06/12/17 06/12/17 Range/Units 13:50 13:50 13:50 WBC 10.60 H (4.23-9.07) K/mm3 RBC 5.48 (4.63-6.08) M/mm3 Hgb 16.0 (13.7-17.5) gm/L Hct 47.0 (40.1-51.0) % MCV 85.8 (79.0-92.2) fl MCH 29.2 (25.7-32.2) pg MCHC 34.0 (32.2-35.5) g/dl RDW Std Deviation 41.3 (35.1-43.9) fL Plt Count 311 (163-337) K/mm3 MPV 9.5 (9.4-12.3) fl Neutrophils % (Manual) 77 H (40-60) % Band Neutrophils % 0 (0-10) % Lymphocytes % (Manual) 12 L (20-40) % Atypical Lymphs % 0 % Monocytes % (Manual) 10 (2-10) % Eosinophils % (Manual) 1 (0.8-7.0) % Basophils % (Manual) 0 L (0.2-1.2) Platelet Estimate Adequate Plt Morphology Comment Normal RBC Morph Comment Normal Sodium 140 (136-145) mEq/L Potassium 4.0 (3.5-5.1) mEq/L Chloride 104 (98-107) mEq/L Carbon Dioxide 26 (21-32) mEq/L Anion Gap 14.0 (5-15) BUN 13 (7-18) mg/dL Creatinine 0.7 (0.7-1.3) mg/dL Est Cr Clr Drug Dosing 141.64 mL/min Estimated GFR (MDRD) > 60 (>60) mL/min BUN/Creatinine Ratio 18.6 H (14-18) Glucose 112 H (74-106) mg/dL Calcium 8.7 (8.5-10.1) mg/dL Total Bilirubin 0.4 (0.2-1.0) mg/dL GGT 27 (15-85) U/L AST 78 H (15-37) U/L ALT 146 H (16-63) U/L Alkaline Phosphatase 82 (46-116) U/L Total Protein 7.2 (6.4-8.2) g/dl Albumin 3.6 (3.4-5.0) g/dl Globulin 3.6 gm/dL Albumin/Globulin Ratio 1.0 (1-2) Lipase 284 (73-393) U/L Urine Color (Yellow) Urine Appearance (Clear) Urine pH (5.0-8.0) Ur Specific [place] (1.005-1.030) Urine Protein (Negative) Urine Glucose (UA) (Negative) Urine Ketones (Negative) Urine Occult Blood (Negative) Urine Nitrite (Negative) Urine Bilirubin (Negative) Urine Urobilinogen (0.2-1.0) Ur Leukocyte Esterase (Negative) Urine RBC (0-5) /hpf Urine WBC (0-5) /hpf Ur Epithelial Cells (0-5) /hpf Urine Bacteria (FEW) /hpf Urine Mucus (FEW) /hpf Ethyl Alcohol 0.00 (0.00) gm% H. pylori IgG Antibody Negative (NEGATIVE) 06/12/17 Range/Units 16:18 WBC (4.23-9.07) K/mm3 RBC (4.63-6.08) M/mm3 Hgb (13.7-17.5) gm/L Hct (40.1-51.0) % MCV (79.0-92.2) fl MCH (25.7-32.2) pg MCHC (32.2-35.5) g/dl RDW Std Deviation (35.1-43.9) fL Plt Count (163-337) K/mm3 MPV (9.4-12.3) fl Neutrophils % (Manual) (40-60) % Band Neutrophils % (0-10) % Lymphocytes % (Manual) (20-40) % Atypical Lymphs % % Monocytes % (Manual) (2-10) % Eosinophils % (Manual) (0.8-7.0) % Basophils % (Manual) (0.2-1.2) Platelet Estimate Plt Morphology Comment RBC Morph Comment Sodium (136-145) mEq/L Potassium (3.5-5.1) mEq/L Chloride (98-107) mEq/L Carbon Dioxide (21-32) mEq/L Anion Gap (5-15) BUN (7-18) mg/dL Creatinine (0.7-1.3) mg/dL Est Cr Clr Drug Dosing mL/min Estimated GFR (MDRD) (>60) mL/min BUN/Creatinine Ratio (14-18) Glucose (74-106) mg/dL Calcium (8.5-10.1) mg/dL Total Bilirubin (0.2-1.0) mg/dL GGT (15-85) U/L AST (15-37) U/L ALT (16-63) U/L Alkaline Phosphatase (46-116) U/L Total Protein (6.4-8.2) g/dl Albumin (3.4-5.0) g/dl Globulin gm/dL Albumin/Globulin Ratio (1-2) Lipase (73-393) U/L Urine Color Yellow (Yellow) Urine Appearance Clear (Clear) Urine pH 7.0 (5.0-8.0) Ur Specific [place] 1.015 (1.005-1.030) Urine Protein Negative (Negative) Urine Glucose (UA) Negative (Negative) Urine Ketones Negative (Negative) Urine Occult Blood Negative (Negative) Urine Nitrite Negative (Negative) Urine Bilirubin Negative (Negative) Urine Urobilinogen 0.2 (0.2-1.0) Ur Leukocyte Esterase Negative (Negative) Urine RBC 0-5 (0-5) /hpf Urine WBC 0-5 (0-5) /hpf Ur Epithelial Cells 0-5 (0-5) /hpf Urine Bacteria Rare (FEW) /hpf Urine Mucus Not seen (FEW) /hpf Ethyl Alcohol (0.00) gm% H. pylori IgG Antibody (NEGATIVE) Meds: Medications Generic Name Dose Route Start Last Admin Trade Name Freq PRN Reason Stop Dose Admin Sodium Chloride 10 ml 06/12/17 16:36 06/12/17 16:47 Saline Flush FLUSH 10 ml ONETIME PRN Administration IV FLUSH Discontinued Medications Generic Name Dose Route Start Last Admin Trade Name Kallie PRN Reason Stop Dose Admin Al Hydroxide/Mg Hydroxide 30 0 ml 06/12/17 14:11 06/12/17 14:21 ml/ Lidocaine HCl 15 ml PO 06/12/17 14:12 45 ml ONETIME ONE Administration Diatrizoate Meglum/Diatrizoate Sod 90 ml 06/12/17 16:36 06/12/17 16:47 Gastrografin 37% PO 06/12/17 16:37 90 ml ONETIME ONE Administration Hydromorphone HCl 0.5 mg 06/12/17 14:11 06/12/17 14:22 Dilaudid IVPUSH 06/12/17 14:12 0.5 mg ONETIME ONE Administration Hydromorphone HCl 0.5 mg 06/12/17 15:30 06/12/17 15:35 Dilaudid IVPUSH 06/12/17 15:31 0.5 mg ONETIME ONE Administration Sodium Chloride 1,000 mls @ 999 mls/hr 06/12/17 14:11 06/12/17 14:21 Normal Saline IV 06/12/17 15:11 999 mls/hr ONETIME ONE Administration Iopamidol 125 ml 06/12/17 16:36 06/12/17 16:47 Isovue-300 (61%) IVPUSH 06/12/17 16:37 125 ml ONETIME ONE Administration Ondansetron HCl 4 mg 06/12/17 14:11 06/12/17 14:20 Zofran IVPUSH 06/12/17 14:12 4 mg ONETIME ONE Administration - Re-Assessments/Exams Free Text/Narrative Re-Assessment/Exam: WBC 7600 with 77% neutrophils and no bands. H. pylori was negative. CT of the abdomen and pelvis demonstrated a dilated stomach, patient did "chug "the last of his contrast just prior to leaving for CT. No other normality was identified. Patient has a diagnosis of hepatitis C and has not been treated for this. He reports that he is recently discussed this with his PCP and has been referred to infectious disease at [facility] in [place] but has not yet seen them. AST today 78, ALT 146, GGT 27. I did discuss with patient at length that he needs to get this addressed sooner rather than later to prevent long-term damage to his liver and patient verbalized understanding of this. He will call to check on status of appointment tomorrow. Patient is now pain-free, requesting to go home and I do feel that this is reasonable. Recommend bland diet as well as increased fluids. Also recommend that he consider smoking cessation. Will discharge home on Carafate 4 times a day he will continue his omeprazole and follow up with his PCP. 06/12/17 17:37 06/12/17 17:42 Departure - Departure Time of Disposition: 17:40 Disposition: Home, Self-Care 01 Condition: Good Clinical Impression: Epigastric pain GERD (gastroesophageal reflux disease) Qualifiers: Esophagitis presence: esophagitis presence not specified Qualified Code(s): K21.9 - Gastro-esophageal reflux disease without esophagitis - Discharge Information Prescriptions: Sucralfate [Carafate] 1 gm PO TID #90 tablet Referrals: Mitch Horan Jr, MD [Primary Care Provider] - Forms: ED Department Discharge - My Orders Last 24 Hours: My Active Orders 06/12/17 16:18 DRUG SCREEN, URINE [URCHEM] Stat 06/12/17 16:36 Sodium Chloride 0.9% [Saline Flush] 10 ml FLUSH ONETIME PRN - Assessment/Plan Last 24 Hours: My Active Orders 06/12/17 16:18 DRUG SCREEN, URINE [URCHEM] Stat 06/12/17 16:36 Sodium Chloride 0.9% [Saline Flush] 10 ml FLUSH ONETIME PRN
[2017-06-12] MEDS ORDERED: Ondansetron 4 MG/2 ML SDV IVPUSH ONE (14:11)
[2017-06-12] MEDS ORDERED: HYDROmorphone 0.5 MG/0.5 ML Syringe IVPUSH ONE ×2 (14:11→15:30)
[2017-06-12] MEDS ORDERED: Sodium Chloride 0.9% 1,000 ML IV ONE (14:11)
[2017-06-12] MEDS ORDERED: Alum Hydrox/Mag Hydrox/Simeth 30 ML, Lidocaine 2% 15 ML PO ONE ×2 (14:11)
[2017-06-12] MEDS ORDERED: Sodium Chloride 0.9% 10 ML Syringe FLUSH PRN (16:36)
[2017-06-12] MEDS ORDERED: Iopamidol 612 MG/ML 150 ML Bottle IVPUSH ONE (16:36)
[2017-06-12] MEDS ORDERED: Diatrizoate Meglumine/Diatrizoate Sodium 37% 120 ML Bottle PO ONE (16:36)
--- NOTE | 2017-06-12 17:12 | CT ---
CT abdomen and pelvis Technique: Multiple axial sections were obtained from above the dome of the diaphragm inferiorly through the pubic symphysis. Intravenous contrast was utilized. Oral contrast has been given which remains within the stomach. Delayed images were also obtained through the bladder. Findings: Visualized lung bases shows mild atelectasis within the right lung base. Liver shows no focal parenchymal abnormality. Dilated stomach containing contrast is seen. Spleen appears within normal limits. Adrenal glands show no nodule. Kidneys show symmetric contrast enhancement without hydronephrosis or mass. Pancreas is within normal limits. Aorta shows no aneurysmal dilatation. No retroperitoneal adenopathy or mesenteric abnormalities are seen. No pelvic mass or adenopathy is identified. Numerous fluid filled bowel loops are seen which show no dilatation which is felt to be incidental. Appendix is difficult to see because of numerous nonopacified bowel loops. No inflammatory change is seen. No free fluid is seen. Delayed images shows contrast within the distal ureters and within the bladder. Bone window settings were reviewed which appear within normal limits for the patient's age. Impression: 1. Dilated stomach containing contrast. Uncertain if this represents gastric outlet obstruction or represents contrast being ingested in one setting. Please correlate. If any further clinical questions remain, endoscopy could then be considered. 2. Other incidental findings. Nothing acute is otherwise appreciated. Diagnostic code #3
== END 2017-06-12 17:55 | disposition home or self-care (01) ==
LOC: JD.ED 13:26 → SUPCPDRO 13:26 → JD.ED 17:55
DX: K21.9 Gastro-esophageal reflux disease without esophagitis (principal); Z88.8 Allergy status to other drugs, medicaments and biological substances; Z88.6 Allergy status to analgesic agent; Z79.899 Other long term (current) drug therapy; F17.210 Nicotine dependence, cigarettes, uncomplicated
CPT/HCPCS: 36415; 74177; 80053; 80306; 81001; 82977; 83690; 85025; 86677; 96361; 96374; 96375; 96376; 99284; A9270; G0480; J1170; J2405; J7040; J7050; Q9963; Q9967

== ENCOUNTER 2017-06-17 14:35 | Emergency (ER) | payer MEDICAID ==
[2017-06-17 14:56] VITALS: BP 90/76
[2017-06-17] MEDS ORDERED: HYDROmorphone 0.5 MG/0.5 ML Syringe IVPUSH ONE ×2 (15:28→17:20)
[2017-06-17] MEDS ORDERED: Ondansetron 4 MG/2 ML SDV IVPUSH ONE (15:28)
[2017-06-17] MEDS ORDERED: Famotidine 20 MG/2 ML SDV IVPUSH ONE (15:28)
[2017-06-17] MEDS ORDERED: Sodium Chloride 0.9% 10 ML Syringe FLUSH PRN (15:28)
[2017-06-17] MEDS ORDERED: Sodium Chloride 0.9% 1,000 ML IV SCH (15:30)
--- NOTE | 2017-06-17 15:44 | EDM.PDOC ---
ED HPI GENERAL MEDICAL PROBLEM - General Chief Complaint: Abdominal Pain Stated Complaint: ABDOMINAL PAIN Time Seen by Provider: 06/17/17 14:54 Source of Information: Reports: Patient, RN Notes Reviewed - History of Present Illness INITIAL COMMENTS - FREE TEXT/NARRATIVE: 32-year-old male comes in with abdominal pain nausea vomiting and diarrhea. This started this past morning about 8 hours ago. Had about 8-10 episodes of watery diarrhea. He has had numerous episodes of vomiting. He does have upper abdominal pain and cramping. He did have similar symptoms about a week ago. That all did get better and he had been feeling fine the last few days up until this morning. He states he does have history of pancreatitis, history of "liver problems". Middle Abdominal Pain Score (Numeric/FACES): 10 - Related Data Allergies Allergy/AdvReac Type Severity Reaction Status Date / Time acetaminophen [From Tylenol] Allergy Other Verified 06/17/17 14:56 ibuprofen Allergy Swelling Verified 06/17/17 14:56 Home Meds: Home Meds ClonazePAM [KlonoPIN] 1 mg PO TID 04/12/17 [History] Omeprazole Magnesium [Prilosec Otc] 20 mg PO DAILY 04/12/17 [History] Sucralfate [Carafate] 1 gm PO TID #90 tablet 06/12/17 [Rx] HYDROmorphone [Dilaudid] 2 mg PO Q6HR PRN #6 tab 06/17/17 [Rx] Ondansetron [Zofran ODT] 4 mg PO Q6H PRN #7 tab.dis 06/17/17 [Rx] Past Medical History - Past Health History Medical/Surgical History: Denies Medical/Surgical History Gastrointestinal History: Reports: GERD, Hepatitis, PUD Other Gastrointestinal History: Ulcerative colitis Musculoskeletal History: Reports: Fracture Other Musculoskeletal History: right hand Neurological History: Reports: Migraines, Seizure Psychiatric History: Reports: Anxiety, Depression - Infectious Disease History Infectious Disease History: Reports: Hepatitis C - Past Surgical History GI Surgical History: Reports: Cholecystectomy, Colonoscopy, EGD Musculoskeletal Surgical History: Reports: ORIF Social & Family History - Family History Family Medical History: Noncontributory - Tobacco Use Smoking Status *Q: Current Every Day Smoker Years of Tobacco use: 10 Packs/Tins Daily: 0.5 Used Tobacco, but Quit: No Month Tobacco Last Used: May Second Hand Smoke Exposure: No - Caffeine Use Caffeine Use: Reports: None - Alcohol Use Days Per Week of Alcohol Use: 0 - Recreational Drug Use Recreational Drug Use: Yes Drug Use in Last 12 Months: Yes Recreational Drug Type: Reports: Cocaine, Methamphetamine Recreational Drug Use Frequency: Binges Recreational Drug Last Use: February - Living Situation & Occupation Living situation: Reports: Single, Alone Occupation: Unemployed ED ROS GENERAL - Review of Systems Review Of Systems: See Below Constitutional: Reports: Chills. Denies: Fever HEENT: Reports: Other (Mouth feels dry). Denies: Throat Pain Respiratory: Denies: Shortness of Breath, Wheezing Cardiovascular: Denies: Chest Pain GI/Abdominal: Reports: Abdominal Pain (Primarily upper mid abdomen), Diarrhea, Nausea (Watery), Vomiting. Denies: Hematochezia, Melena Musculoskeletal: Reports: No Symptoms Skin: Reports: No Symptoms Neurological: Reports: No Symptoms ED EXAM, GI/ABD - Physical Exam Exam: See Below General Appearance: Alert, Anxious, Moderate Distress Eyes: Bilateral: Normal Appearance Throat/Mouth: Normal Inspection, Normal Oropharynx Head: Atraumatic. No: Facial Swelling Neck: Supple Respiratory/Chest: No Respiratory Distress, Lungs Clear, Normal Breath Sounds. No: Rhonchi, Wheezing Cardiovascular: Tachycardia GI/Abdominal Exam: Soft, Tender (Mild tenderness upper mid abdomen and left upper quadrant. Lower abdomen nontender). No: Guarding Back Exam: No: CVA Tenderness (L), CVA Tenderness (R) Extremities: Normal Inspection, Normal Range of Motion. No: Pedal Edema, Leg Pain Neurological: Alert, Oriented, No Motor/Sensory Deficits Skin Exam: Warm, Dry, Normal Color Course - Vital Signs Last Recorded V/S: Last Vital Signs Temp 97.5 F 06/17/17 14:54 Pulse 109 H 06/17/17 14:54 Resp 20 06/17/17 14:54 BP 90/76 06/17/17 14:54 Pulse Ox 99 06/17/17 14:54 - Orders/Labs/Meds Labs: Laboratory Tests 06/17/17 06/17/17 Range/Units 15:10 15:10 WBC 8.24 (4.23-9.07) K/mm3 RBC 5.79 (4.63-6.08) M/mm3 Hgb 16.8 (13.7-17.5) gm/L Hct 50.1 (40.1-51.0) % MCV 86.5 (79.0-92.2) fl MCH 29.0 (25.7-32.2) pg MCHC 33.5 (32.2-35.5) g/dl RDW Std Deviation 42.9 (35.1-43.9) fL Plt Count 322 (163-337) K/mm3 MPV 9.1 L (9.4-12.3) fl Neut % (Auto) 68.9 H (34.0-67.9) % Lymph % (Auto) 19.8 L (21.8-53.1) % [place] % (Auto) 9.2 (5.3-12.2) % Eos % (Auto) 1.7 (0.8-7.0) Baso % (Auto) 0.2 (0.1-1.2) % Neut # (Auto) 5.67 H (1.78-5.38) K/mm3 Lymph # (Auto) 1.63 (1.32-3.57) K/mm3 [place] # (Auto) 0.76 (0.30-0.82) K/mm3 Eos # (Auto) 0.14 (0.04-0.54) K/mm3 Baso # (Auto) 0.02 (0.01-0.08) K/mm3 Sodium 142 (136-145) mEq/L Potassium 4.1 (3.5-5.1) mEq/L Chloride 104 (98-107) mEq/L Carbon Dioxide 31 (21-32) mEq/L Anion Gap 11.1 (5-15) BUN 16 (7-18) mg/dL Creatinine 1.0 (0.7-1.3) mg/dL Est Cr Clr Drug Dosing 99.15 mL/min Estimated GFR (MDRD) > 60 (>60) mL/min BUN/Creatinine Ratio 16.0 (14-18) Glucose 86 (74-106) mg/dL Calcium 9.4 (8.5-10.1) mg/dL Total Bilirubin 0.3 (0.2-1.0) mg/dL AST 53 H (15-37) U/L ALT 149 H (16-63) U/L Alkaline Phosphatase 100 (46-116) U/L Total Protein 8.0 (6.4-8.2) g/dl Albumin 4.1 (3.4-5.0) g/dl Globulin 3.9 gm/dL Albumin/Globulin Ratio 1.1 (1-2) Lipase 408 H (73-393) U/L Meds: Medications Discontinued Medications Generic Name Dose Route Start Last Admin Trade Name Roshanq PRN Reason Stop Dose Admin Famotidine 20 mg 06/17/17 15:28 06/17/17 15:36 Pepcid IVPUSH 06/17/17 15:29 20 mg ONETIME ONE Administration Hydromorphone HCl 0.5 mg 06/17/17 15:28 06/17/17 15:35 Dilaudid IVPUSH 06/17/17 15:29 0.5 mg ONETIME ONE Administration Hydromorphone HCl 0.5 mg 06/17/17 17:20 06/17/17 17:47 Dilaudid IVPUSH 06/17/17 17:21 0.5 mg ONETIME ONE Administration Sodium Chloride 1,000 mls @ 999 mls/hr 06/17/17 15:30 06/17/17 15:35 Normal Saline IV 999 mls/hr ONETIME SIVAKUMAR Administration Metoclopramide HCl 5 mg 06/17/17 17:20 06/17/17 17:42 Reglan IVPUSH 06/17/17 17:21 5 mg ONETIME ONE Administration Ondansetron HCl 4 mg 06/17/17 15:28 06/17/17 15:36 Zofran IVPUSH 06/17/17 15:29 4 mg ONETIME ONE Administration Sodium Chloride 10 ml 06/17/17 15:28 06/17/17 15:36 Saline Flush FLUSH 10 ml ASDIRECTED PRN Administration Keep Vein Open - Re-Assessments/Exams Free Text/Narrative Re-Assessment/Exam: 06/18/17 20:13. Labs came back relatively okay. Chemistries did not show dehydration. Lipase very slightly elevated. White blood count not elevated. Afebrile, not toxic looking in any way. I'm not going to CT him at this time. He has known history for substance abuse. His drug screen 5 days ago when presenting with similar symptoms was positive for marijuana, opioids and math. I have discussed this with patient. Discussed symptomatic care. He wants something for pain. He states with his history hepatitis is recommended that he not take anti-inflammatories and Tylenol when I did suggest describing a few hydrocodone. Therefore I have written very limited number of 2 mg Dilaudid to help for further discomfort. Zofran also prescribed. Discharge instructions as documented. Departure - Departure Time of Disposition: 18:10 Disposition: Home, Self-Care 01 Condition: Fair Clinical Impression: Abdominal pain Qualifiers: Abdominal location: upper abdomen, unspecified Qualified Code(s): R10.10 - Upper abdominal pain, unspecified Vomiting Qualifiers: Vomiting type: unspecified Vomiting Intractability: non-intractable Nausea presence: without nausea Qualified Code(s): R11.11 - Vomiting without nausea Diarrhea Qualifiers: Diarrhea type: unspecified type Qualified Code(s): R19.7 - Diarrhea, unspecified - Discharge Information Prescriptions: HYDROmorphone [Dilaudid] 2 mg PO Q6HR PRN #6 tab PRN Reason: Pain Ondansetron [Zofran ODT] 4 mg PO Q6H PRN #7 tab.dis PRN Reason: Nausea/Vomiting Instructions: Nausea and Vomiting, Adult, [id number], Abdominal Pain, Adult, [id number] Referrals: Mitch Horan Jr, MD [Primary Care Provider] - Forms: ED Department Discharge Additional Instructions: Clear liquids until tomorrow afternoon, then very careful bland diet as tolerated. Avoid all fatty, fried, spicy foods for at least the next 5-7 days. Probiotic available OTC 3 times daily for the next week, and if needed for further nausea or vomiting. Dilaudid 2 mg q 6 to 8 hr if needed for severe pain. Follow-up with your regular clinic provider if not much better within 2- 3 days as expected.
[2017-06-17] MEDS ORDERED: Metoclopramide 10 MG/2 ML SDV IVPUSH ONE (17:20)
== END 2017-06-17 18:22 | disposition home or self-care (01) ==
LOC: JD.ED 14:35
DX: R10.10 Upper abdominal pain, unspecified (principal); R19.7 Diarrhea, unspecified; R11.2 Nausea with vomiting, unspecified; F17.210 Nicotine dependence, cigarettes, uncomplicated; Z88.6 Allergy status to analgesic agent; Z88.8 Allergy status to other drugs, medicaments and biological substances; Z79.899 Other long term (current) drug therapy
CPT/HCPCS: 36415; 80053; 83690; 85025; 96361; 96374; 96375; 96376; 99284; J1170; J2405; J2765; J7040; J7050

== ENCOUNTER 2017-06-19 09:51 | Emergency (ER) | payer MEDICAID ==
[2017-06-19 10:06] VITALS: BP 126/78
[2017-06-19] MEDS ORDERED: HYDROmorphone 1 MG/ML Syringe IVPUSH ONE (10:38)
[2017-06-19] MEDS ORDERED: Metoclopramide 10 MG/2 ML SDV IVPUSH ONE (10:39)
--- NOTE | 2017-06-19 10:43 | EDM.PDOC ---
ED HPI GENERAL MEDICAL PROBLEM - General Chief Complaint: Abdominal Pain Stated Complaint: ABDOMINAL PAIN NOT BETTER Time Seen by Provider: 06/19/17 10:28 Source of Information: Reports: Patient History Limitations: Reports: No Limitations - History of Present Illness INITIAL COMMENTS - FREE TEXT/NARRATIVE: 32-year-old male presents to the ED with a seven-day history of recurrent nausea vomiting and profuse yellowish watery diarrhea. States on average she's having 7-10 bowel movements per day and almost anything he tries to eat or drink is coming back up. Denies any recent alcohol use. He was seen through the ED 2 days ago and diagnosed with viral gastroenteritis. Is possibilities picked up of foodborne illness. He has not been on any antibiotics in the last month. Has some chills but no defined fever. Diffuse abdominal cramping pain. CONTINUE throughout the night as well as the day. Feels weak. Does not feel lightheaded or dizzy. Denies any hematemesis or blood in the stool. Has a history of pancreatitis but he denies drinking alcohol for the last several years. His lipase when he was here 2 days ago was 408. The remainder of his labs were essentially normal other than some suggestion of hemoconcentration. Patient reports initial pain was left upper quadrant of the abdomen. Now seems to be more left lower quadrant of the abdomen. Onset: Sudden Onset Date: 06/12/17 Duration: Day(s):, Constant, Waxing/Waning Location: Reports: Abdomen (Constant abdominal pain with history of recurrent nausea vomiting and loose yellow watery diarrhea.) Quality: Reports: Ache, Sharp, Stabbing, Other (Cramping pain) Severity: Moderate (Current pain is 8 out of 10.) Improves with: Reports: None Worsens with: Reports: Eating (Anything he drinks or eats typically comes right back up. 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 He has hepatitis C and does not take acetaminophen due to concerns with liver problems.) Left Abdominal Pain Score (Numeric/FACES): 10 - Related Data Allergies Allergy/AdvReac Type Severity Reaction Status Date / Time acetaminophen [From Tylenol] Allergy Other Verified 06/19/17 10:00 ibuprofen Allergy Swelling Verified 06/19/17 10:00 Home Meds: Home Meds ClonazePAM [KlonoPIN] 1 mg PO TID 04/12/17 [History] Omeprazole Magnesium [Prilosec Otc] 20 mg PO DAILY 04/12/17 [History] Sucralfate [Carafate] 1 gm PO TID #90 tablet 06/12/17 [Rx] HYDROmorphone [Dilaudid] 2 mg PO Q6HR PRN #6 tab 06/17/17 [Rx] Ondansetron [Zofran ODT] 4 mg PO Q6H PRN #7 tab.dis 06/17/17 [Rx] Ciprofloxacin HCl [Cipro] 500 mg PO BID #14 tablet 06/19/17 [Rx] Dicyclomine [Bentyl] 20 mg PO Q6H PRN #8 tablet 06/19/17 [Rx] HYDROmorphone [Dilaudid] 2 mg PO Q6H PRN #5 tab 06/19/17 [Rx] Ondansetron [Zofran] 4 mg BUCCAL Q6H PRN #8 tab 06/19/17 [Rx] Past Medical History - Past Health History Medical/Surgical History: Denies Medical/Surgical History Gastrointestinal History: Reports: GERD, Hepatitis (Known to have hepatitis C.) , PUD Other Gastrointestinal History: Ulcerative colitis Musculoskeletal History: Reports: Fracture Other Musculoskeletal History: right hand Neurological History: Reports: Migraines, Seizure Psychiatric History: Reports: Anxiety, Depression - Infectious Disease History Infectious Disease History: Reports: Hepatitis C - Past Surgical History GI Surgical History: Reports: Cholecystectomy, Colonoscopy, EGD Musculoskeletal Surgical History: Reports: ORIF Social & Family History - Family History Family Medical History: Noncontributory - Tobacco Use Smoking Status *Q: Current Every Day Smoker Years of Tobacco use: 15 Packs/Tins Daily: 0.5 Used Tobacco, but Quit: No Month Tobacco Last Used: May Second Hand Smoke Exposure: No - Caffeine Use Caffeine Use: Reports: None - Alcohol Use Days Per Week of Alcohol Use: 0 - Recreational Drug Use Recreational Drug Use: Yes Drug Use in Last 12 Months: Yes Recreational Drug Type: Reports: Methamphetamine Recreational Drug Use Frequency: Binges Recreational Drug Last Use: February - Living Situation & Occupation Living situation: Reports: Single, Alone Occupation: Unemployed ED ROS GENERAL - Review of Systems Review Of Systems: See Below Constitutional: Reports: Chills, Malaise, Weakness, Fatigue, Decreased Appetite , Weight Loss HEENT: Reports: No Symptoms Respiratory: Reports: No Symptoms Cardiovascular: Reports: No Symptoms Endocrine: Reports: No Symptoms GI/Abdominal: Reports: Abdominal Pain, Diarrhea (Loose yellow watery diarrhea 7- 10 times per day.), Nausea, Vomiting. Denies: Hematemesis, Hematochezia : Reports: No Symptoms Musculoskeletal: Reports: No Symptoms Skin: Reports: No Symptoms Neurological: Reports: No Symptoms Psychiatric: Reports: No Symptoms Hematologic/Lymphatic: Reports: No Symptoms ED EXAM, GI/ABD - Physical Exam Exam: See Below Exam Limited By: No Limitations General Appearance: Alert, WD/WN, Mild Distress Eyes: Bilateral: Normal Appearance Throat/Mouth: Other (Tongue and lips are quite dry.) Head: Atraumatic, Normocephalic Neck: Normal Inspection, Supple, Non-Tender, Full Range of Motion. No: Carotid Bruit, Lymphadenopathy (L), Lymphadenopathy (R) Respiratory/Chest: No Respiratory Distress, Lungs Clear, Normal Breath Sounds, Chest Non-Tender, Other (No smell of ketones on his breath.) Cardiovascular: Normal Peripheral Pulses, Regular Rate, Rhythm, No Edema, No Gallop, No Murmur. No: Tachycardia GI/Abdominal Exam: No Organomegaly, No Distention, Guarding ( There is guarding with no rebound.), Tender (Mostly over the left hemicolon particularly in the distribution of the sigmoid colon.), Abnormal Bowel Sounds (Bowel sounds are hyperactive in all 4 quadrants.). No: Rigid, Rebound (Male) Exam: No Hernia Back Exam: Normal Inspection, Full Range of Motion. No: CVA Tenderness (L), CVA Tenderness (R) Extremities: Normal Inspection, Normal Range of Motion, Non-Tender, No Pedal Edema Neurological: Alert, Oriented, CN II-XII Intact, Normal Cognition, Normal Gait, Other (Has needle track pandya left antecubital fossa. He states he was last using methamphetamines intravenously about 2 weeks ago.) Psychiatric: Normal Affect, Normal Mood Skin Exam: Warm, Dry, Intact, Normal Color, No Rash Course - Vital Signs Last Recorded V/S: Last Vital Signs Temp 35.9 C 06/19/17 10:00 Pulse 83 06/19/17 10:00 Resp 18 06/19/17 10:00 BP 126/78 06/19/17 10:00 Pulse Ox 100 06/19/17 10:00 - Orders/Labs/Meds Orders: Active Orders 24 hr Category Date Time Status CULTURE STOOL + SHIGATOX [RM] Stat Lab 06/19/17 11:05 Ordered DRUG SCREEN, URINE [URCHEM] Stat Lab 06/19/17 10:41 Uncollected URINALYSIS W/MICROSCOPIC [UA W/MICROSCOPIC] [URIN] Stat Lab 06/19/17 10:41 Uncollected WBC, STOOL [OP] Stat Lab 06/19/17 11:05 Ordered Dextrose 5%-Lactated Ringers 1,000 ml Med 06/19/17 10:45 Active IV ASDIRECTED Dextrose 5%-Lactated Ringers 1,000 ml Med 06/19/17 12:15 Active IV ASDIRECTED Medication Orders Dextrose/Lactated Ringer's (Dextrose 5%-Lactated Ringers) 1,000 mls @ 999 mls/ hr IV ASDIRECTED SIVAKUMAR Last Admin: 06/19/17 11:09 Dose: 999 mls/hr Dextrose/Lactated Ringer's (Dextrose 5%-Lactated Ringers) 1,000 mls @ 999 mls/ hr IV ASDIRECTED SIVAKUMAR Last Admin: 06/19/17 12:10 Dose: 999 mls/hr Labs: Laboratory Tests 06/19/17 06/19/17 06/19/17 Range/Units 10:30 10:55 10:55 WBC 9.56 H (4.23-9.07) K/mm3 RBC 5.97 (4.63-6.08) M/mm3 Hgb 17.6 H (13.7-17.5) gm/L Hct 51.1 H (40.1-51.0) % MCV 85.6 (79.0-92.2) fl MCH 29.5 (25.7-32.2) pg MCHC 34.4 (32.2-35.5) g/dl RDW Std Deviation 42.8 (35.1-43.9) fL Plt Count 311 (163-337) K/mm3 MPV 8.7 L (9.4-12.3) fl Neutrophils % (Manual) 71 H (40-60) % Band Neutrophils % 0 (0-10) % Lymphocytes % (Manual) 18 L (20-40) % Atypical Lymphs % 0 % Monocytes % (Manual) 9 (2-10) % Eosinophils % (Manual) 2 (0.8-7.0) % Basophils % (Manual) 0 L (0.2-1.2) Platelet Estimate Adequate Anisocytosis 1+ slight RBC Morph Comment Abnormal Sodium 137 (136-145) mEq/L Potassium 4.4 (3.5-5.1) mEq/L Chloride 102 (98-107) mEq/L Carbon Dioxide 30 (21-32) mEq/L Anion Gap 9.4 (5-15) BUN 9 (7-18) mg/dL Creatinine 1.0 (0.7-1.3) mg/dL Est Cr Clr Drug Dosing 99.15 mL/min Estimated GFR (MDRD) > 60 (>60) mL/min BUN/Creatinine Ratio 9.0 L (14-18) Glucose 106 (74-106) mg/dL Lactic Acid (0.4-2.0) mmol/L Calcium 8.5 (8.5-10.1) mg/dL Total Bilirubin 0.3 (0.2-1.0) mg/dL AST 31 (15-37) U/L ALT 88 H (16-63) U/L Alkaline Phosphatase 74 (46-116) U/L C-Reactive Protein < 0.2 (<1.0) mg/dL Total Protein 6.2 L (6.4-8.2) g/dl Albumin 3.0 L (3.4-5.0) g/dl Globulin 3.2 gm/dL Albumin/Globulin Ratio 0.9 L (1-2) Amylase 91 (25-115) U/L Lipase 293 (73-393) U/L Ketones (0.0-0.3) mM C.difficile [id number] Presumptive negative C. difficile Tox (PCR) Negative 06/19/17 06/19/17 Range/Units 10:55 11:10 WBC (4.23-9.07) K/mm3 RBC (4.63-6.08) M/mm3 Hgb (13.7-17.5) gm/L Hct (40.1-51.0) % MCV (79.0-92.2) fl MCH (25.7-32.2) pg MCHC (32.2-35.5) g/dl RDW Std Deviation (35.1-43.9) fL Plt Count (163-337) K/mm3 MPV (9.4-12.3) fl Neutrophils % (Manual) (40-60) % Band Neutrophils % (0-10) % Lymphocytes % (Manual) (20-40) % Atypical Lymphs % % Monocytes % (Manual) (2-10) % Eosinophils % (Manual) (0.8-7.0) % Basophils % (Manual) (0.2-1.2) Platelet Estimate Anisocytosis RBC Morph Comment Sodium (136-145) mEq/L Potassium (3.5-5.1) mEq/L Chloride (98-107) mEq/L Carbon Dioxide (21-32) mEq/L Anion Gap (5-15) BUN (7-18) mg/dL Creatinine (0.7-1.3) mg/dL Est Cr Clr Drug Dosing mL/min Estimated GFR (MDRD) (>60) mL/min BUN/Creatinine Ratio (14-18) Glucose (74-106) mg/dL Lactic Acid 1.5 (0.4-2.0) mmol/L Calcium (8.5-10.1) mg/dL Total Bilirubin (0.2-1.0) mg/dL AST (15-37) U/L ALT (16-63) U/L Alkaline Phosphatase (46-116) U/L C-Reactive Protein (<1.0) mg/dL Total Protein (6.4-8.2) g/dl Albumin (3.4-5.0) g/dl Globulin gm/dL Albumin/Globulin Ratio (1-2) Amylase (25-115) U/L Lipase (73-393) U/L Ketones 0.2 (0.0-0.3) mM C.difficile [id number] C. difficile Tox (PCR) Meds: Medications Generic Name Dose Route Start Last Admin Trade Name Freq PRN Reason Stop Dose Admin Dextrose/Lactated Ringer's 1,000 mls @ 999 mls/hr 06/19/17 10:45 06/19/17 11: 09 Dextrose 5%-Lactated Ringers IV 999 mls/hr ASDIRECTED SIVAKUMAR Administration Dextrose/Lactated Ringer's 1,000 mls @ 999 mls/hr 06/19/17 12:15 06/19/17 12: 10 Dextrose 5%-Lactated Ringers IV 999 mls/hr ASDIRECTED SIVAKUMAR Administration Discontinued Medications Generic Name Dose Route Start Last Admin Trade Name Kallie PRN Reason Stop Dose Admin Dicyclomine HCl 20 mg 06/19/17 12:23 06/19/17 12:32 Bentyl PO 06/19/17 12:24 20 mg ONETIME ONE Administration Hydromorphone HCl 1 mg 06/19/17 10:38 06/19/17 11:03 Dilaudid IVPUSH 06/19/17 10:39 1 mg ONETIME ONE Administration Hydromorphone HCl 0.5 mg 06/19/17 12:23 06/19/17 12:32 Dilaudid IVPUSH 06/19/17 12:24 0.5 mg ONETIME ONE Administration Levofloxacin/Dextrose 500 mg/ 100 mls @ 100 mls/hr 06/19/17 12:05 06/19/17 12 :15 Premix IV 06/19/17 13:04 100 mls/hr ONETIME ONE Administration Metoclopramide HCl 10 mg 06/19/17 10:39 06/19/17 11:07 Reglan IVPUSH 06/19/17 10:40 10 mg ONETIME ONE Administration - Radiology Interpretation Free Text/Narrative:: 32-year-old male presents to the ED with a one-week history of reported intractable nausea vomiting and loose yellow watery diarrhea up to 10 times per day. Possibility of foodborne illness. No recent antibiotic usage in the last several weeks. Patient has a history of pancreatitis but denies drinking any alcohol for several years. He was seen through the ED 2 days ago and had a complete workup at which time he was found to be mildly hemoconcentrated with a serum lipase of 408 upper limits of normal. Plan stools will be obtained for culture and sensitivity and WBCs as well as C. difficile. IV will be D5 lactated Ringer's at open. Given Dilaudid 1 mg IV with Reglan 10 mg IV for nausea and pain relief. She labs include an amylase and lipase to be obtained. Exam reveals him to be quite tender in the left lower quadrant of the abdomen. The possibility of diverticulitis exists although there's been no blood. His history is suggestive of a possible foodborne illness. Of note the patient does have a history of opiate recreational drug abuse and possibility of withdrawal does exist. - Re-Assessments/Exams Free Text/Narrative Re-Assessment/Exam: 06/19/17 11:40 White count is 9.56 with 71% neutrophils no bands. Hemoglobin is 17.6 with a hematocrit of 51.1 indicating hemoconcentration. Platelet count is normal at 311,000. Sodium 137 potassium 4.4. Chloride 102 bicarbonate 30. Anion gap is 9.4 BUN is 9 creatinine is 1.0. GFR is greater than 60. Glucose is 106. Calcium 8.5. Liver function shows a bilirubin of 0.3. AST is 31 ALT is elevated at 88 compatible with hepatitis C. Patient knows he has this disorder. Alkaline phosphatase is 74. C-reactive protein was 0.2. Total protein is normal albumin fraction slightly low at 3.0 today's lipase is 293. 06/19/17 11:54 stool tested negative for C. difficile. 06/19/17 12:24 patient reports to nursing staff that his pain is increasing in his abdomen. I.e. crampy. Will give Dilaudid 0.5 mg IV and Bentyl 20 mg by mouth. Departure - Departure Time of Disposition: 13:15 Disposition: Home, Self-Care 01 Condition: Fair Clinical Impression: Gastroenteritis due to food toxin - Discharge Information Prescriptions: Ciprofloxacin HCl [Cipro] 500 mg PO BID #14 tablet Dicyclomine [Bentyl] 20 mg PO Q6H PRN #8 tablet PRN Reason: Abdominal cramps/diarrhea HYDROmorphone [Dilaudid] 2 mg PO Q6H PRN #5 tab PRN Reason: Relief of abdominal pain Ondansetron [Zofran] 4 mg BUCCAL Q6H PRN #8 tab PRN Reason: nausea or vomiting Referrals: Mitch Horan Jr, MD [Primary Care Provider] - Forms: ED Department Discharge Additional Instructions: Evaluation the emergency room today in regards to persistent loose watery diarrhea with associated nausea and vomiting. For the last 6-7 days. Stool tested negative for Clostridium difficile which is a toxin borne illness from bacteria in the gut. Lab tests revealed significant volume depletion/ dehydration. You're therefore treated with 2 L of IV fluids while in the ED. Receive medications Dilaudid 1 mg IV with Reglan 10 mg IV to arrest nausea vomiting and help with the abdominal cramping pain. I suspect you have of foodborne illness with toxin causing a secretory diarrhea. First dose of antibiotic was administered in the ED I Levaquin 500 milligrams. Treatment as an outpatient is to continue Zofran 4 mg under the tongue every 4-6 hours as needed for nausea or vomiting relief. Antibiotic is to be Cipro 500 mg twice daily for the next 7 days to clear up infection. First tablet would be to due tonight at bedtime. May use Bentyl 20 mg every 6 hours as needed for relief of abdominal pain and cramping. Dilaudid tabs 2 mg 1 every 6-8 hours as necessary for relief of pain not controlled by Bentyl alone. Expect marked improvement over the next 48 hours once the antibiotic has time to work. Initially clear fluid diet such as Gatorade Powerade when hungry try soda crackers and toast hard-boiled egg or poached egg etc. Advance then to soup broth turkey rice/ turkey noodle chicken noodle etc. Avoid all dairy products and no apple or grape juice until stools are formed back up. I would suggest taking up some probiotics suggest Floragen --usually this is available at most drug stores. Suggest one tablet 3 times daily until stools are formed backup then once daily for about another week. - My Orders Last 24 Hours: My Active Orders 06/19/17 10:41 DRUG SCREEN, URINE [URCHEM] Stat URINALYSIS W/MICROSCOPIC [UA W/MICROSCOPIC] [URIN] Stat 06/19/17 10:45 Dextrose 5%-Lactated Ringers 1,000 ml IV ASDIRECTED 06/19/17 11:05 CULTURE STOOL + SHIGATOX [RM] Stat WBC, STOOL [OP] Stat 06/19/17 12:15 Dextrose 5%-Lactated Ringers 1,000 ml IV ASDIRECTED - Assessment/Plan Last 24 Hours: My Active Orders 06/19/17 10:41 DRUG SCREEN, URINE [URCHEM] Stat URINALYSIS W/MICROSCOPIC [UA W/MICROSCOPIC] [URIN] Stat 06/19/17 10:45 Dextrose 5%-Lactated Ringers 1,000 ml IV ASDIRECTED 06/19/17 11:05 CULTURE STOOL + SHIGATOX [RM] Stat WBC, STOOL [OP] Stat 06/19/17 12:15 Dextrose 5%-Lactated Ringers 1,000 ml IV ASDIRECTED
[2017-06-19] MEDS ORDERED: Dextrose 5%-Lactated Ringers 1,000 ML IV SCH ×2 (10:45→12:15)
[2017-06-19] MEDS ORDERED: Levofloxacin/Dextrose 5%-Water 500 MG in Premix Bag 1 BAG IV ONE (12:05)
[2017-06-19] MEDS ORDERED: Dicyclomine 10 MG Cap PO ONE (12:23)
[2017-06-19] MEDS ORDERED: HYDROmorphone 0.5 MG/0.5 ML Syringe IVPUSH ONE (12:23)
== END 2017-06-19 13:20 | disposition home or self-care (01) ==
LOC: JD.ED 09:51
DX: A05.9 Bacterial foodborne intoxication, unspecified (principal); Z88.6 Allergy status to analgesic agent; K21.9 Gastro-esophageal reflux disease without esophagitis; Z90.49 Acquired absence of other specified parts of digestive tract; F17.210 Nicotine dependence, cigarettes, uncomplicated
CPT/HCPCS: 36415; 80053; 82009; 82150; 83605; 83690; 85025; 86140; 87046; 87427; 87493; 96361; 96365; 96375; 96376; 99284; A9270; J1170; J1956; J2765; J7042

== ENCOUNTER 2017-07-04 22:46 | Emergency (ER) | payer MEDICAID ==
[2017-07-04 22:54] VITALS: BP 128/79
[2017-07-04] MEDS ORDERED: Sodium Chloride 0.9% 1,000 ML IV SCH (23:45)
[2017-07-04] MEDS ORDERED: HYDROmorphone 0.5 MG/0.5 ML SYRINGE IVPUSH STA (23:46)
[2017-07-04] MEDS ORDERED: Metoclopramide 10 MG/2 ML SDV IVPUSH STA (23:47)
--- NOTE | 2017-07-04 23:54 | EDM.PDOC ---
ED HPI GENERAL MEDICAL PROBLEM - General Chief Complaint: Abdominal Pain Stated Complaint: [facility] Time Seen by Provider: 07/04/17 23:25 Source of Information: Reports: Patient, Old Records History Limitations: Reports: No Limitations - History of Present Illness INITIAL COMMENTS - FREE TEXT/NARRATIVE: The patient is brought to the ED by EMS. He states that he developed left upper quadrant abdominal pain this morning. It is twisting and crampy in character. The pain waxes and wanes. He has been experiencing bloating, eructation, and flatulence. He has had nausea and emesis. He reports watery diarrhea. No urinary symptoms. No fever. The patient states that he has had similar symptoms, about 5 times previously over the past 3 years. He states that he has had numerous medical evaluations, including an EGD and colonoscopy, all without a diagnosis. The patient states that he has been taking [id number] Prilosec 20 g daily for the past year, with the last dose being yesterday. Medical records indicate that the patient was seen in this ED on 06/17/2017 and with a virtually identical presentation. Workup on 06/19/2017 included a CBC, CMP, lactic acid level, CRP, amylase and lipase levels, and stool for C. difficile, all of which returned unremarkable. The patient received IV fluid, Bentyl, Reglan, Levaquin, and a total of 1.5 mg of IV Dilaudid before being discharged home with prescriptions for ciprofloxacin, Bentyl, Zofran, and 5 tablets of Dilaudid 2 mg. He was referred to Dr. Mitch Horan for follow-up. The patient states that this time that he did not follow-up with Dr. Horan, but that he has an appointment to see him, but he does not know when. - Related Data Allergies Allergy/AdvReac Type Severity Reaction Status Date / Time ibuprofen Allergy Swelling Verified 07/04/17 22:54 acetaminophen [From Tylenol] AdvReac Other Verified 07/05/17 12:11 Home Meds: Home Meds ClonazePAM [KlonoPIN] 1 mg PO TID 04/12/17 [History] Omeprazole Magnesium [Prilosec Otc] 20 mg PO DAILY 04/12/17 [History] Sucralfate [Carafate] 1 gm PO TID #90 tablet 06/12/17 [Rx] Dicyclomine [Bentyl] 20 mg PO Q6H PRN #8 tablet 06/19/17 [Rx] Ondansetron [Zofran] 4 mg BUCCAL Q6H PRN #8 tab 06/19/17 [Rx] Past Medical History Gastrointestinal History: Reports: PUD Musculoskeletal History: Reports: Fracture (right hand) Psychiatric History: Reports: Anxiety, Depression - Infectious Disease History Infectious Disease History: Reports: Hepatitis C - Past Surgical History GI Surgical History: Reports: Cholecystectomy, Colonoscopy, EGD Musculoskeletal Surgical History: Reports: ORIF Social & Family History - Family History Family Medical History: Noncontributory - Tobacco Use Smoking Status *Q: Current Every Day Smoker Years of Tobacco use: 19 Packs/Tins Daily: 0.5 Packs/Tins Daily Comment: Down from 1 ppd - Caffeine Use Caffeine Use: Reports: Coffee - Alcohol Use Alcohol Use History: Yes Days Per Week of Alcohol Use: 0 Alcohol Use in Last Twelve Months: No - Recreational Drug Use Recreational Drug Use: Yes Drug Use in Last 12 Months: Yes Recreational Drug Type: Reports: Marijuana/Hashish (occasionally), Methamphetamine (last use May 2017) - Living Situation & Occupation Living situation: Reports: Single, with Family (Father) Occupation: Unemployed ED ROS GENERAL - Review of Systems Review Of Systems: ROS reveals no pertinent complaints other than HPI. ED EXAM, GI/ABD - Physical Exam Exam: See Below Exam Limited By: No Limitations General Appearance: Alert, WD/WN, Mild Distress (Vomiting) Eyes: Bilateral: Normal Appearance, EOMI Ears: Normal External Exam, Hearing Grossly Normal Nose: Normal Inspection, No Blood Throat/Mouth: Normal Inspection, Normal Lips, Normal Voice, No Airway Compromise Head: Atraumatic, Normocephalic Neck: Normal Inspection, Full Range of Motion Respiratory/Chest: No Respiratory Distress, Lungs Clear, Normal Breath Sounds, No Accessory Muscle Use Cardiovascular: Normal Peripheral Pulses, Regular Rate, Rhythm, No Gallop, No JVD, No Murmur, No Rub GI/Abdominal Exam: Normal Bowel Sounds, Soft, No Organomegaly, No Distention, No Abnormal Bruit, No Mass, Pelvis Stable, Tender (Left upper quadrant only. Essentially nontender elsewhere.) (Male) Exam: Deferred Rectal (Males) Exam: Deferred Back Exam: Normal Inspection, Full Range of Motion. No: CVA Tenderness (L), CVA Tenderness (R) Extremities: Normal Inspection, Normal Range of Motion, No Pedal Edema, Normal Capillary Refill Neurological: Alert, Oriented, Normal Cognition, No Motor/Sensory Deficits Psychiatric: Normal Affect Skin Exam: Warm, Dry, Intact, Normal Color, No Rash Course - Vital Signs Last Recorded V/S: Last Vital Signs Temp 36.7 C 07/04/17 22:49 Pulse 80 07/04/17 22:49 Resp 19 07/04/17 22:49 BP 128/79 07/04/17 22:49 Pulse Ox 98 07/04/17 22:49 - Orders/Labs/Meds Meds: Medications Discontinued Medications Generic Name Dose Route Start Last Admin Trade Name Freq PRN Reason Stop Dose Admin Hydromorphone HCl 1 mg 07/04/17 23:46 Dilaudid IVPUSH 07/04/17 23:47 ONETIME STA Sodium Chloride 1,000 mls @ 150 mls/hr 07/04/17 23:45 Normal Saline IV ASDIRECTED SIVAKUMAR Metoclopramide HCl 10 mg 07/04/17 23:47 Reglan IVPUSH 07/04/17 23:48 ONETIME STA - Re-Assessments/Exams Free Text/Narrative Re-Assessment/Exam: 07/04/17 23:49 Notified by Coco PASTRANA that the patient has decided to leave, after he was notified that he would not receive the Dilaudid I ordered until after he provided a urine sample. This strongly suggests that his current symptoms are due to opioid withdrawal, although it is also possible that the patient could be suffering from cannabinoid hyperemesis syndrome. 07/04/17 23:50 The patient left the ED without signing discharge paperwork. 07/04/17 23:53 Notified that the patient came to the ED one week ago, did not want to see Dr. Mcpherson, who signed up for the patient, and tried to see Dr. Caldera. He was not seen, but was provided a cab voucher to go get his medications filled. 07/05/17 00:30 Notified that the patient returned to the ED, signed back in to be seen, then changed his mind, and requested a cab voucher home. Departure - Departure Time of Disposition: 23:50 Disposition: [facility] 07 Condition: Undetermined Clinical Impression: Nausea & vomiting, Chronic abdominal pain, Drug-seeking behavior - Discharge Information Referrals: Mitch Horan Jr, MD [Primary Care Provider] -
== END 2017-07-04 23:50 | disposition left against medical advice (07) ==
LOC: JD.ED 22:46 → SUPCPDRO 22:46 → JD.ED 23:50
DX: R10.12 Left upper quadrant pain (principal); R11.2 Nausea with vomiting, unspecified; Z88.8 Allergy status to other drugs, medicaments and biological substances; Z88.5 Allergy status to narcotic agent; F17.210 Nicotine dependence, cigarettes, uncomplicated
CPT/HCPCS: 99284

== ENCOUNTER 2017-08-05 11:21 | Emergency (ER) | payer MEDICAID ==
[2017-08-05] MEDS ORDERED: Ondansetron 4 MG Tab.DIS PO ONE (12:03)
[2017-08-05] MEDS ORDERED: cloNIDine 0.1 MG Tab PO ONE (12:04)
[2017-08-05] MEDS ORDERED: ClonazePAM 1 MG Tab PO ONE (12:04)
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
[2017-08-05 12:16] VITALS: BP 112/75
== END 2017-08-05 12:20 | disposition home or self-care (01) ==
LOC: JD.ED 11:21
DX: F11.23 Opioid dependence with withdrawal (principal); Z88.6 Allergy status to analgesic agent
CPT/HCPCS: 99283; A9270

== ENCOUNTER 2017-08-10 04:58 | Emergency (ER) | payer MEDICAID ==
[2017-08-10 05:09] VITALS: BP 117/76
[2017-08-10] MEDS ORDERED: cloNIDine 0.1 MG Tab PO ONE (06:49)
--- NOTE | 2017-08-10 07:00 | EDM.PDOC ---
ED HPI GENERAL MEDICAL PROBLEM - General Chief Complaint: Drug or Alcohol Abuse Stated Complaint: withdrawal Time Seen by Provider: 08/10/17 05:28 Source of Information: Reports: Patient, Old Records History Limitations: Reports: No Limitations - History of Present Illness INITIAL COMMENTS - FREE TEXT/NARRATIVE: The patient states that he has been on Suboxone for a little over a month, prescribed by Dr. Grove from [place]. He is supposed to take 2 tablets daily. His prescriptions are written for only one week at a time, and that they "drop" his urine with each visit to verify that he is taking his Suboxone, and to check that he is not taking any other controlled substances.. He states that he is now on his 4th or 5th prescription. He states that his insurance company quit paying for it 10 days ago, therefore he has been paying out of pocket since then, a few tablets at a time. He states that he has gone a few days without any Suboxone at all. He states that he was seen in this ED about one week ago for withdrawal symptoms for the same reason. He states that he was given both Klonopin and clonidine, which helped his symptoms. The patient states that his drug of choice is methamphetamine, which she started smoking in the eighth grade. He eventually started injecting it. He states that his last use was in June 2017. He started injecting heroin about one year ago, and was up to about 1/2 g per day. His last use was in June. He states that he started using opioids after he started using heroin. He typically took 2-3 oral Dilaudid tablets per day. His last use was about one month ago. He states that he likes clonidine and other benzodiazepines , but never purchased them on the street, only taking what he was prescribed. His last dose was about 2 days ago. The patient states that he does not drink alcohol. He now presents with complaints of feeling like his hands and feet are swollen, generalized body aches, feeling agitated and restless, unable to focus. He reports a headache felt behind his eyes, and he feels dehydrated. He denies any gastrointestinal symptoms, such as nausea, emesis, or diarrhea. Generalized Pain Score (Numeric/FACES): 8 - Related Data Allergies Allergy/AdvReac Type Severity Reaction Status Date / Time ibuprofen Allergy Swelling Verified 08/10/17 05:10 acetaminophen [From Tylenol] AdvReac Other Verified 08/10/17 05:10 Home Meds: Home Meds Buprenorphine HCl/Naloxone HCl [Suboxone 4 mg-1 mg Sl Film] 1 tab PO BID [History] cloNIDine HCl [Catapres] 0.1 mg PO Q6HR PRN #8 tab 08/05/17 [Rx] clonazePAM [Klonopin] 1 mg PO Q4H PRN #8 tablet 08/05/17 [Rx] Past Medical History Gastrointestinal History: Reports: PUD Musculoskeletal History: Reports: Fracture (right hand) Psychiatric History: Reports: Addiction (see H&P), Anxiety, Depression - Infectious Disease History Infectious Disease History: Reports: Hepatitis C - Past Surgical History GI Surgical History: Reports: Cholecystectomy, Colonoscopy, EGD Musculoskeletal Surgical History: Reports: ORIF Social & Family History - Family History Family Medical History: Noncontributory - Tobacco Use Smoking Status *Q: Current Every Day Smoker Years of Tobacco use: 20 Packs/Tins Daily: 1 - Caffeine Use Caffeine Use: Reports: None - Alcohol Use Alcohol Use History: No Days Per Week of Alcohol Use: 0 - Recreational Drug Use Recreational Drug Use: Yes Drug Use in Last 12 Months: Yes Recreational Drug Type: Reports: Benzodiazepines, Cocaine, Heroin, Marijuana/ Hashish, Methamphetamine, Other (see below) (Opioids) Recreational Drug Last Use: marijuana - Living Situation & Occupation Living situation: Reports: Single, with Family (Father) Occupation: Unemployed ED ROS GENERAL - Review of Systems Review Of Systems: ROS reveals no pertinent complaints other than HPI. ED EXAM, GENERAL - Physical Exam Exam: See Below Exam Limited By: No Limitations General Appearance: Alert, WD/WN, No Apparent Distress, Other (The patient did not yawn during our entire interview) Eye Exam: Bilateral Eye: Normal Inspection Ears: Normal External Exam, Hearing Grossly Normal Nose: Normal Inspection, No Blood Throat/Mouth: Normal Inspection, Normal Lips, Normal Voice, No Airway Compromise Head: Atraumatic, Normocephalic Neck: Normal Inspection, Full Range of Motion Respiratory/Chest: No Respiratory Distress, Lungs Clear, Normal Breath Sounds, No Accessory Muscle Use Cardiovascular: Normal Peripheral Pulses, Regular Rate, Rhythm, No Gallop, No JVD, No Murmur, No Rub Peripheral Pulses: 4+: Radial (L), Radial (R) GI/Abdominal: Normal Bowel Sounds, Soft, Non-Tender, No Organomegaly, No Distention, No Abnormal Bruit, No Mass (Male) Exam: Deferred Rectal (Males) Exam: Deferred Back Exam: Normal Inspection, Full Range of Motion, NT Extremities: Normal Inspection, Normal Range of Motion, No Pedal Edema, Normal Capillary Refill Neurological: Alert, Oriented, Normal Cognition, No Motor/Sensory Deficits Psychiatric: Normal Affect Skin Exam: Warm, Dry, Intact, Normal Color, No Rash, Other (No piloerection) Course - Vital Signs Last Recorded V/S: Last Vital Signs Temp 36.6 C 08/10/17 05:05 Pulse 85 08/10/17 05:05 Resp 20 08/10/17 05:05 BP 117/76 08/10/17 05:05 Pulse Ox 100 08/10/17 05:05 - Orders/Labs/Meds Meds: Medications Discontinued Medications Generic Name Dose Route Start Last Admin Trade Name Roshanq PRN Reason Stop Dose Admin Clonidine HCl 0.1 mg 08/10/17 06:49 Catapres PO 08/10/17 06:50 ONETIME ONE - Re-Assessments/Exams Free Text/Narrative Re-Assessment/Exam: 08/10/17 06:54 I have reviewed several prior medical records, including the patient's most recent visit this ED on 08/05/2017. The version of events that the patient told Dr. Caldera on 08/05/2017 differs from the story that he is telling me tonight., The patient informed me that his pain management physician, Dr. Grove, does not want him on Klonopin, as this was one of his drugs of abuse. Additionally, Dr. Grove's office checks the patient's urine with every visit, and if the patient starts taking Klonopin again, he may very well get discharged from Dr. Grove's service. For all of these reasons, plus the relatively mild symptoms that he is experiencing, I'm recommending only clonidine at this time. When I explained this to the patient, he replied that he might as well just go home and see if he can get some OxyContin some other way. I offered to prescribe clonidine, and the patient refused. The patient's response is strongly suspicious for drug- seeking behavior. 08/10/17 06:56 Notified that the patient left the ED without receiving the clonidine that was ordered, and without waiting for discharge instructions. Review of the [place] PMPi finds that the patient has 64 prescriptions for controlled substances by 29 prescribers, filled a 20 pharmacies over the past 3 years. It appears that he began taking Zubsolve (sublingual Suboxone) on 2017. His most recent prescription was filled just yesterday, 08/09/2017, for 10 tablets. This is in direct contradiction to what the patient told me. Clearly, the patient was drug-seeking. Departure - Departure Time of Disposition: 06:56 Disposition: Eloped 07 Condition: Good Clinical Impression: Drug-seeking behavior - Discharge Information
== END 2017-08-10 06:57 | disposition left against medical advice (07) ==
LOC: JD.ED 04:58
DX: Z76.5 Malingerer [conscious simulation] (principal); F17.210 Nicotine dependence, cigarettes, uncomplicated; Z88.6 Allergy status to analgesic agent
CPT/HCPCS: 99283

== ENCOUNTER 2017-08-20 12:25 | Emergency (ER) | payer MEDICAID ==
[2017-08-20 12:35] VITALS: BP 133/84
[2017-08-20] MEDS ORDERED: Dicyclomine 10 MG Cap PO ONE ×2 (13:10→13:11)
[2017-08-20] MEDS ORDERED: Promethazine 25 MG/ML SDV IM ONE (13:10)
--- NOTE | 2017-08-20 13:12 | EDM.PDOC ---
ED HPI GENERAL MEDICAL PROBLEM - General Chief Complaint: Abdominal Pain Stated Complaint: ABDOMINAL PAIN Time Seen by Provider: 08/20/17 12:51 Source of Information: Reports: Patient, Old Records (previous ER visits) History Limitations: Reports: No Limitations - History of Present Illness INITIAL COMMENTS - FREE TEXT/NARRATIVE: 32-year-old male presents for evaluation and treatment of abdominal pain. Patient reports he has chronic abdominal pain intermittently. States that sometimes he will get abdominal pain at least once a month other times he'll go several months without this. This has been going on for several years. He reports this current episode of abdominal pain started yesterday. He reports associated symptoms of chills, nausea, vomiting and diarrhea. He states he's had at least 3 or 4 episodes of vomiting today. He reports that he has "extreme " diarrhea. Any activity, even standing, causes diarrhea. He states that when he gets these episodes he develops sulfur like burps followed by bloating and then severe abdominal cramping pain. He reports his stools are dark brown almost black in color. States the pain is located on the left side of his abdomen it is severe, cramping pain. He denies any fevers or lightheadedness. He states that he does feel fatigued. No urinary symptoms. Patient questions if his abdominal pain is from a gluten sensitivity. He states that he had some cereal this morning and appetite yesterday and this seemed to precipitate his symptoms. Patient states he has had pancreatitis in the past. He also has a history of hepatitis C. Previous abdominal surgeries include a cholecystectomy. He denies any recent antibiotic usage. He denies any recent travel. States he's had a complete workup with abdominal pain including colonoscopy and upper endoscopy, last 2 years ago. He is not seen GI for his chronic abdominal pain. Previously on Suboxone up until one week ago. He had to stop the Suboxone due to his insurance not covering it as well as problems with transportation to [place] for his Suboxone prescription. Primary care provider and [place] is Dr. Horan. Abdominal Pain Score (Numeric/FACES): 8 - Related Data Allergies Allergy/AdvReac Type Severity Reaction Status Date / Time ibuprofen Allergy Swelling Verified 08/20/17 12:30 acetaminophen [From Tylenol] AdvReac Other Verified 08/20/17 12:30 Home Meds: Home Meds clonazePAM [Klonopin] 1 mg PO Q4H PRN #8 tablet 08/05/17 [Rx] Past Medical History - Past Health History Medical/Surgical History: Denies Medical/Surgical History Gastrointestinal History: Reports: Pancreatitis, PUD Other Gastrointestinal History: Ulcerative colitis Musculoskeletal History: Reports: Fracture Other Musculoskeletal History: right hand Neurological History: Reports: Migraines, Seizure Psychiatric History: Reports: Addiction, Anxiety, Depression - Infectious Disease History Infectious Disease History: Reports: Hepatitis C - Past Surgical History GI Surgical History: Reports: Cholecystectomy, Colonoscopy, EGD Musculoskeletal Surgical History: Reports: ORIF Social & Family History - Family History Family Medical History: Noncontributory - Tobacco Use Smoking Status *Q: Current Every Day Smoker Years of Tobacco use: 15 Packs/Tins Daily: 1 Used Tobacco, but Quit: No Month/Year Tobacco Last Used: May Hand Smoke Exposure: No - Caffeine Use Caffeine Use: Reports: None - Alcohol Use Days Per Week of Alcohol Use: 0 - Recreational Drug Use Recreational Drug Use: Yes Drug Use in Last 12 Months: Yes Recreational Drug Type: Reports: Cocaine, Marijuana/Hashish, Methamphetamine Recreational Drug Use Frequency: Not Used In Over 1 Month Recreational Drug Last Use: marijuana - Living Situation & Occupation Living situation: Reports: Single, with Family (Father) Occupation: Unemployed ED ROS GENERAL - Review of Systems Review Of Systems: See Below Constitutional: Reports: Chills, Fatigue. Denies: Fever Cardiovascular: Denies: Chest Pain, Lightheadedness GI/Abdominal: Reports: Abdominal Pain (left upper and left lower quadrant), Diarrhea, Distension, Nausea, Vomiting : Reports: No Symptoms. Denies: Dysuria Neurological: Denies: Dizziness ED EXAM, GI/ABD - Physical Exam Exam: See Below Exam Limited By: No Limitations General Appearance: Alert, WD/WN, No Apparent Distress, Thin Nose: Normal Inspection Throat/Mouth: Normal Inspection, Normal Lips, Normal Oropharynx, Normal Voice, No Airway Compromise Respiratory/Chest: No Respiratory Distress, Lungs Clear, Normal Breath Sounds Cardiovascular: Normal Peripheral Pulses, Regular Rate, Rhythm, No Murmur GI/Abdominal Exam: Normal Bowel Sounds, Soft, Non-Tender, No Distention, Other ( no pain at [place]). No: Guarding, Rigid, Rebound Neurological: Alert, Oriented, Normal Cognition Psychiatric: Normal Affect, Normal Mood Skin Exam: Warm, Dry, Normal Color Course - Vital Signs Last Recorded V/S: Last Vital Signs Temp 36.0 C 08/20/17 12:32 Pulse 82 08/20/17 12:32 Resp 16 08/20/17 12:32 BP 133/84 08/20/17 12:32 Pulse Ox 100 08/20/17 12:32 - Orders/Labs/Meds Orders: Active Orders 24 hr Category Date Time Status C-REACTIVE PROTEIN [CHEM] Stat Lab 08/20/17 13:09 Ordered CBC WITH MANUAL DIFF [HEME] Stat Lab 08/20/17 13:09 Ordered CMP [COMPREHENSIVE METABOLIC PN,CMP] [CHEM] Stat Lab 08/20/17 13:09 Ordered DRUG SCREEN, URINE [URCHEM] Stat Lab 08/20/17 13:09 Ordered ETHANOL BLOOD MEDICAL [CHEM] Stat Lab 08/20/17 13:09 Ordered LIPASE [CHEM] Stat Lab 08/20/17 13:09 Ordered UA W/MICROSCOPIC [URIN] Stat Lab 08/20/17 13:10 Ordered Labs: Laboratory Tests 08/20/17 Range/Units 13:20 WBC 7.92 (4.23-9.07) K/mm3 RBC 4.68 (4.63-6.08) M/mm3 Hgb 13.8 (13.7-17.5) gm/L Hct 41.4 (40.1-51.0) % MCV 88.5 (79.0-92.2) fl MCH 29.5 (25.7-32.2) pg MCHC 33.3 (32.2-35.5) g/dl RDW Std Deviation 44.8 H (35.1-43.9) fL Plt Count 266 (163-337) K/mm3 MPV 9.1 L (9.4-12.3) fl Meds: Medications Discontinued Medications Generic Name Dose Route Start Last Admin Trade Name Freq PRN Reason Stop Dose Admin Dicyclomine HCl 10 mg 08/20/17 13:10 08/20/17 13:22 Bentyl PO 08/20/17 13:11 10 mg ONETIME ONE Administration Dicyclomine HCl 10 mg 08/20/17 13:11 08/20/17 13:22 Bentyl PO 08/20/17 13:12 10 mg ONETIME ONE Administration Promethazine HCl 25 mg 08/20/17 13:10 08/20/17 13:23 Phenergan IM 08/20/17 13:11 25 mg ONETIME ONE Administration - Re-Assessments/Exams Free Text/Narrative Re-Assessment/Exam: 08/20/17 13:38 Patient was searched on the [place] prescription drug registry. He has received 29 prescriptions from 15 to prescribers for controlled substance within the last year. Most recently he received Suboxone 5.7-1.4 mg sublingual tabs #10 on . He also receives clonazepam 1 mg tabs #60 on 08-09-17. Nursing staff came and informed me that the patient would like to leave as he has to be somewhere in 30 minutes. I do not have any labs back. If he would like to go, he will have to sign out AMA at this time. Departure - Departure Time of Disposition: 13:39 Disposition: Against Medical Advice 07 Condition: Undetermined Clinical Impression: Abdominal pain - Discharge Information Referrals: Mitch Horan Jr, MD [Primary Care Provider] - Forms: ED Department Discharge Additional Instructions: Patient decided to leave AMA prior to labs returning. Undetermined condition. I did recommend to the patient that he should see GI as this is a chronic problem. I informed him that I would rule out emergencies today, however, give us a chronic problem I would not be prescribing any narcotics. - My Orders Last 24 Hours: My Active Orders 08/20/17 13:09 C-REACTIVE PROTEIN [CHEM] Stat CBC WITH MANUAL DIFF [HEME] Stat CMP [COMPREHENSIVE METABOLIC PN,CMP] [CHEM] Stat DRUG SCREEN, URINE [URCHEM] Stat ETHANOL BLOOD MEDICAL [CHEM] Stat LIPASE [CHEM] Stat 08/20/17 13:10 UA W/MICROSCOPIC [URIN] Stat - Assessment/Plan Last 24 Hours: My Active Orders 08/20/17 13:09 C-REACTIVE PROTEIN [CHEM] Stat CBC WITH MANUAL DIFF [HEME] Stat CMP [COMPREHENSIVE METABOLIC PN,CMP] [CHEM] Stat DRUG SCREEN, URINE [URCHEM] Stat ETHANOL BLOOD MEDICAL [CHEM] Stat LIPASE [CHEM] Stat 08/20/17 13:10 UA W/MICROSCOPIC [URIN] Stat
== END 2017-08-20 13:37 | disposition left against medical advice (07) ==
LOC: JD.ED 12:25
DX: R10.12 Left upper quadrant pain (principal); R10.32 Left lower quadrant pain; F17.210 Nicotine dependence, cigarettes, uncomplicated; Z86.19 Personal history of other infectious and parasitic diseases; Z90.49 Acquired absence of other specified parts of digestive tract; Z88.6 Allergy status to analgesic agent; Z87.19 Personal history of other diseases of the digestive system
CPT/HCPCS: 36415; 80053; 80306; 81001; 83690; 85025; 86140; 96372; 99284; A9270; G0480; J2550; 99283

== ENCOUNTER 2017-08-21 08:36 | Emergency (ER) | payer MEDICAID ==
[2017-08-21] MEDS ORDERED: Sodium Chloride 0.9% 10 ML Syringe FLUSH PRN (08:47)
[2017-08-21] MEDS ORDERED: Sodium Chloride 0.9% 1,000 ML IV SCH (09:00)
[2017-08-21] MEDS ORDERED: Ondansetron 4 MG/2 ML SDV IVPUSH ONE (09:16)
[2017-08-21] MEDS ORDERED: HYDROmorphone 0.5 MG/0.5 ML SYRINGE IVPUSH ONE (09:16)
[2017-08-21] MEDS ORDERED: Famotidine 20 MG/2 ML SDV IVPUSH ONE (09:16)
--- NOTE | 2017-08-21 09:18 | EDM.PDOC ---
ED HPI GENERAL MEDICAL PROBLEM - General Chief Complaint: Abdominal Pain Stated Complaint: [facility] Time Seen by Provider: 08/21/17 08:47 Source of Information: Reports: Patient, RN Notes Reviewed - History of Present Illness INITIAL COMMENTS - FREE TEXT/NARRATIVE: 32-year-old male comes in with abdominal pain nausea vomiting diarrhea. This started about 2 days ago. He did present to our ED yesterday with similar complaints. Order he left AMA before all lab work could be obtained or treatment finalized. He stated he had to leave "for an appointment. He states the pain became even worse after leaving the ED, kept him up most of the night. Pain has been primarily upper mid abdomen. There is been nausea with repetitive vomiting and also watery repetitive diarrhea. Steady upper abdominal discomfort with superimposed cramping. No major chest pain or difficulty breathing. Does have history of pancreatitis. He denies any recent alcohol ingestion. He does have history of prior drug usage. 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: Pepto-Bismol Abdomen Pain Score (Numeric/FACES): 10 - Related Data Allergies Allergy/AdvReac Type Severity Reaction Status Date / Time ibuprofen Allergy Swelling Verified 08/21/17 08:55 acetaminophen [From Tylenol] AdvReac Other Verified 08/21/17 08:55 Home Meds: Home Meds clonazePAM [Klonopin] 1 mg PO Q4H PRN #8 tablet 08/05/17 [Rx] Ondansetron [Zofran ODT] 4 mg PO Q6H PRN #7 tab.dis 08/21/17 [Rx] Past Medical History - Past Health History Medical/Surgical History: Denies Medical/Surgical History Gastrointestinal History: Reports: Pancreatitis, PUD Other Gastrointestinal History: Ulcerative colitis Musculoskeletal History: Reports: Fracture Other Musculoskeletal History: right hand Neurological History: Reports: Migraines, Seizure Psychiatric History: Reports: Addiction, Anxiety, Depression - Infectious Disease History Infectious Disease History: Reports: Chicken Pox, Hepatitis C - Past Surgical History GI Surgical History: Reports: Cholecystectomy, Colonoscopy, EGD Musculoskeletal Surgical History: Reports: ORIF Social & Family History - Family History Family Medical History: Noncontributory - Tobacco Use Smoking Status *Q: Current Every Day Smoker Years of Tobacco use: 15 Packs/Tins Daily: 0.5 Used Tobacco, but Quit: No Month/Year Tobacco Last Used: May Second Hand Smoke Exposure: No - Caffeine Use Caffeine Use: Reports: None - Alcohol Use Days Per Week of Alcohol Use: 0 - Recreational Drug Use Recreational Drug Use: Yes Drug Use in Last 12 Months: Yes Recreational Drug Type: Reports: Methaqualone Recreational Drug Use Frequency: Not Used In Over 1 Month Recreational Drug Last Use: marijuana - Living Situation & Occupation Living situation: Reports: Single, with Family (Father) Occupation: Unemployed ED ROS GENERAL - Review of Systems Review Of Systems: See Below Constitutional: Denies: Fever, Chills, Diaphoresis HEENT: Denies: Throat Pain Respiratory: Denies: Shortness of Breath Cardiovascular: Denies: Chest Pain GI/Abdominal: Reports: Abdominal Pain, Diarrhea, Nausea, Vomiting : Reports: No Symptoms Musculoskeletal: Denies: Back Pain Skin: Reports: No Symptoms Neurological: Reports: No Symptoms ED EXAM, GI/ABD - Physical Exam Exam: See Below General Appearance: Alert, Moderate Distress Eyes: Bilateral: Normal Appearance Throat/Mouth: Normal Inspection, Normal Oropharynx Head: Atraumatic. No: Facial Swelling Neck: Supple, Full Range of Motion Respiratory/Chest: No Respiratory Distress, Lungs Clear, Normal Breath Sounds Cardiovascular: Regular Rate, Rhythm GI/Abdominal Exam: Soft, Tender. No: Guarding, Rebound (Moderate diffuse tenderness upper abdomen, lower abdomen mostly nontender) Back Exam: No: CVA Tenderness (L), CVA Tenderness (R) Extremities: Normal Inspection, Normal Range of Motion Neurological: Alert, Oriented, No Motor/Sensory Deficits Skin Exam: Warm, Dry, Normal Color Course - Vital Signs Last Recorded V/S: Last Vital Signs Temp 97.5 F 08/21/17 08:36 Pulse 78 08/21/17 12:40 Resp 18 08/21/17 12:40 BP 132/84 08/21/17 12:40 Pulse Ox 97 08/21/17 12:40 - Orders/Labs/Meds Orders: Active Orders 24 hr Category Date Time Status Peripheral IV Care [RC] . DIRECTED Care 08/21/17 08:48 Active Peripheral IV Insertion Adult [OM.PC] Stat Oth 08/21/17 08:47 Ordered Labs: Laboratory Tests 04/04/18 04/04/18 04/04/18 Range/Units 08:43 08:43 09:10 WBC 9.27 H (4.23-9.07) K/mm3 RBC 5.16 (4.63-6.08) M/mm3 Hgb 14.9 (13.7-17.5) gm/L Hct 45.0 (40.1-51.0) % MCV 87.2 (79.0-92.2) fl MCH 28.9 (25.7-32.2) pg MCHC 33.1 (32.2-35.5) g/dl RDW Std Deviation 44.5 H (35.1-43.9) fL Plt Count 286 (163-337) K/mm3 MPV 9.2 L (9.4-12.3) fl Neut % (Auto) 65.6 (34.0-67.9) % Lymph % (Auto) 18.8 L (21.8-53.1) % Brewster % (Auto) 8.1 (5.3-12.2) % Eos % (Auto) 7.1 H (0.8-7.0) Baso % (Auto) 0.2 (0.1-1.2) % Neut # (Auto) 6.08 H (1.78-5.38) K/mm3 Lymph # (Auto) 1.74 (1.32-3.57) K/mm3 Brewster # (Auto) 0.75 (0.30-0.82) K/mm3 Eos # (Auto) 0.66 H (0.04-0.54) K/mm3 Baso # (Auto) 0.02 (0.01-0.08) K/mm3 Sodium 145 (136-145) mEq/L Potassium 4.3 (3.5-5.1) mEq/L Chloride 106 (98-107) mEq/L Carbon Dioxide 28 (21-32) mEq/L Anion Gap 15.3 H (5-15) BUN 10 (7-18) mg/dL Creatinine 0.9 (0.7-1.3) mg/dL Est Cr Clr Drug Dosing 110.17 mL/min Estimated GFR (MDRD) > 60 (>60) mL/min BUN/Creatinine Ratio 11.1 L (14-18) Glucose 109 H (74-106) mg/dL Calcium 9.5 (8.5-10.1) mg/dL Total Bilirubin 0.4 (0.2-1.0) mg/dL AST 63 H (15-37) U/L ALT 115 H (16-63) U/L Alkaline Phosphatase 91 (46-116) U/L Total Protein 7.8 (6.4-8.2) g/dl Albumin 4.1 (3.4-5.0) g/dl Globulin 3.7 gm/dL Albumin/Globulin Ratio 1.1 (1-2) Lipase 287 (73-393) U/L Urine Opiates Screen Presumptive positive H (NEGATIVE) Ur Buprenorphine Scrn Negative (NEGATIVE) Ur Oxycodone Screen Negative (NEGATIVE) Urine Methadone Screen Negative (NEGATIVE) Ur Propoxyphene Screen Negative (NEGATIVE) Ur Barbiturates Screen Negative (NEGATIVE) Ur Tricyclics Screen Negative (NEGATIVE) Ur Phencyclidine Scrn Negative (NEGATIVE) Ur Amphetamine Screen Negative (NEGATIVE) U Methamphetamines Scrn Presumptive positive H (NEGATIVE) U Benzodiazepines Scrn Presumptive positive H (NEGATIVE) U Cocaine Metab Screen Presumptive positive H (NEGATIVE) U Marijuana (THC) Screen Presumptive positive H (NEGATIVE) Meds: Medications Discontinued Medications Generic Name Dose Route Start Last Admin Trade Name Freq PRN Reason Stop Dose Admin Famotidine 20 mg 08/21/17 09:16 08/21/17 09:27 Pepcid IVPUSH 08/21/17 09:17 20 mg ONETIME ONE Administration Hydromorphone HCl 1 mg 08/21/17 09:16 08/21/17 09:27 Dilaudid IVPUSH 08/21/17 09:17 1 mg ONETIME ONE Administration Sodium Chloride 1,000 mls @ 999 mls/hr 08/21/17 09:00 08/21/17 09:26 Normal Saline IV 999 mls/hr ONETIME SIVAKUMAR Administration Ondansetron HCl 4 mg 08/21/17 09:16 08/21/17 09:27 Zofran IVPUSH 08/21/17 09:17 4 mg ONETIME ONE Administration Sodium Chloride 10 ml 08/21/17 08:47 08/21/17 09:27 Saline Flush FLUSH 10 ml ASDIRECTED PRN Administration Keep Vein Open Departure - Departure Time of Disposition: 12:51 Disposition: Home, Self-Care 01 Clinical Impression: Vomiting Qualifiers: Vomiting type: unspecified Vomiting Intractability: non-intractable Nausea presence: without nausea Qualified Code(s): R11.11 - Vomiting without nausea Diarrhea Qualifiers: Diarrhea type: unspecified type Qualified Code(s): R19.7 - Diarrhea, unspecified Abdominal pain Qualifiers: Abdominal location: upper abdomen, unspecified Qualified Code(s): R10.10 - Upper abdominal pain, unspecified - Discharge Information Prescriptions: Ondansetron [Zofran ODT] 4 mg PO Q6H PRN #7 tab.dis PRN Reason: Nausea/Vomiting Instructions: Diarrhea, Adult, Abdominal Pain, Adult, [id number], Vomiting, Adult Referrals: Mitch Horan Jr, MD [Primary Care Provider] - Forms: ED Department Discharge Additional Instructions: Clear liquids until this evening, then very careful bland diet as tolerated, Zofran every 6-8 hours if needed for further nausea or vomiting, probiotic, available OTC 3 times daily for 2 days and then twice daily for about 1 week. Follow-up clinic if not much better within 1-2 days as expected, call [phone] if needed for appointment - My Orders Last 24 Hours: My Active Orders 08/21/17 08:47 Peripheral IV Insertion Adult [OM.PC] Stat 08/21/17 08:48 Peripheral IV Care [RC] . DIRECTED - Assessment/Plan Last 24 Hours: My Active Orders 08/21/17 08:47 Peripheral IV Insertion Adult [OM.PC] Stat 08/21/17 08:48 Peripheral IV Care [RC] . DIRECTED
[2017-08-21 12:49] VITALS: BP 132/84
== END 2017-08-21 13:08 | disposition home or self-care (01) ==
LOC: JD.ED 08:36 → SUPCPDRO 08:36 → JD.ED 13:08
DX: R11.11 Vomiting without nausea (principal); R19.7 Diarrhea, unspecified; R10.10 Upper abdominal pain, unspecified; F17.210 Nicotine dependence, cigarettes, uncomplicated; Z88.6 Allergy status to analgesic agent
CPT/HCPCS: 36415; 80053; 80306; 83690; 85025; 96361; 96374; 96375; 99285; J1170; J2405; J7040; J7050; 99284

== ENCOUNTER 2017-11-10 17:42 | Emergency (ER) | payer MEDICAID ==
[2017-11-10] MEDS ORDERED: Sodium Chloride 0.9% 1,000 ML IV ONE ×2 (18:40→22:02)
[2017-11-10] MEDS ORDERED: Ondansetron 4 MG/2 ML SDV IVPUSH ONE ×2 (18:40→22:02)
[2017-11-10] MEDS ORDERED: Famotidine 20 MG/2 ML SDV IVPUSH ONE (18:40)
--- NOTE | 2017-11-10 18:41 | EDM.PDOC ---
ED HPI GENERAL MEDICAL PROBLEM - General Chief Complaint: Abdominal Pain Stated Complaint: UPPER LEFT ABDOMINAL PAINS Time Seen by Provider: 11/10/17 18:40 Source of Information: Reports: Patient History Limitations: Reports: No Limitations - History of Present Illness INITIAL COMMENTS - FREE TEXT/NARRATIVE: Cesar is a 32yo male presents ambulatory accompanied by his mother with complaints of worsening LUQ abdominal pain over the past 5 days, worsening acutely today. He has had nausea, terrible smelling burps, no vomiting but states "I wish I could". He has had similar problems with abdominal pain intermittent over the past few years but not to this extreme. Denies fevers but has had sweats and diaphoresis today. Small amount of diarrhea today x 1 or 2. Otherwise no CP, SOB, LUCAS, dizziness, myalgias, no difficulty with urination or hematuria, no hematemesis, hematochezia or melena. He did eat part of a sandwich earlier today and was hungry, now has no appetite, has been trying to drink fluids but his belly is "too bloated" to drink much. Bowel surgeries in the past: cholecystectomy and exploratory laparoscopy PMH: Hep C, IV drug use/abuse- clean for 2 months now, remote hx of what sounds like PUD, hx of pancreatitis PCP is Dr. Horan with [facility] in [place] Onset: Gradual Onset Date: 11/09/17 Duration: Day(s): (2) Location: Reports: Abdomen Quality: Reports: Sharp, Stabbing Improves with: Reports: None Worsens with: Reports: None Left Middle Abdomen Pain Score (Numeric/FACES): 9 - Related Data Allergies Allergy/AdvReac Type Severity Reaction Status Date / Time ibuprofen Allergy Swelling Verified 11/10/17 18:10 acetaminophen [From Tylenol] AdvReac Other Verified 11/10/17 18:10 Home Meds: Home Meds clonazePAM [Klonopin] 1 mg PO Q4H PRN #8 tablet 08/05/17 [Rx] Past Medical History - Past Health History Medical/Surgical History: Denies Medical/Surgical History Gastrointestinal History: Reports: GERD, Pancreatitis, PUD Other Gastrointestinal History: Ulcerative colitis Musculoskeletal History: Reports: Fracture Other Musculoskeletal History: right hand Neurological History: Reports: Migraines, Seizure Psychiatric History: Reports: Addiction, Anxiety, Depression - Infectious Disease History Infectious Disease History: Reports: Chicken Pox, Hepatitis C - Past Surgical History GI Surgical History: Reports: Cholecystectomy, Colonoscopy, EGD Musculoskeletal Surgical History: Reports: ORIF Social & Family History - Family History Family Medical History: Noncontributory - Tobacco Use Smoking Status *Q: Current Every Day Smoker Years of Tobacco use: 15 Packs/Tins Daily: 0.5 - Caffeine Use Caffeine Use: Reports: Coffee, Soda - Recreational Drug Use Recreational Drug Use: Yes Drug Use in Last 12 Months: Yes Recreational Drug Type: Reports: Methamphetamine Recreational Drug Use Frequency: Monthly - Living Situation & Occupation Living situation: Reports: Single, with Family (Father) Occupation: Unemployed ED ROS GENERAL - Review of Systems Review Of Systems: See Below Constitutional: Reports: Night Sweats, Diaphoresis, Decreased Appetite. Denies : Fever, Chills HEENT: Reports: No Symptoms Respiratory: Reports: No Symptoms. Denies: Shortness of Breath, Cough Cardiovascular: Reports: No Symptoms. Denies: Chest Pain, Dyspnea on Exertion, Palpitations Endocrine: Reports: No Symptoms GI/Abdominal: Reports: Abdominal Pain, Diarrhea, Decreased Appetite, Distension , Nausea, Vomiting, Other (reports hx of Hep C, untreated as of yet as "I have to be clean for 6 months", clean for 2 months thus far from drug use/meth use). Denies: Black Stool, Bloody Stool, Constipation, Flatus, Hematemesis, Hematochezia, Melena : Reports: No Symptoms Musculoskeletal: Reports: No Symptoms. Denies: Shoulder Pain, Back Pain Skin: Reports: No Symptoms. Denies: Rash Neurological: Reports: No Symptoms. Denies: Confusion, Dizziness, Headache Psychiatric: Reports: Anxiety (anxious and restless due to pain) Hematologic/Lymphatic: Reports: No Symptoms ED EXAM, GI/ABD - Physical Exam Exam: See Below Exam Limited By: No Limitations General Appearance: Alert, WD/WN, Anxious, Moderate Distress Eyes: Bilateral: EOMI Ears: Normal External Exam, Hearing Grossly Normal Nose: Normal Inspection Throat/Mouth: Normal Inspection, Normal Lips, Normal Voice, No Airway Compromise , Other (teeth in poor repair) Head: Atraumatic, Normocephalic Neck: Normal Inspection, Supple Respiratory/Chest: No Respiratory Distress, Lungs Clear, Normal Breath Sounds Cardiovascular: Normal Peripheral Pulses, Regular Rate, Rhythm, No Murmur GI/Abdominal Exam: Distended, Tender, Abnormal Bowel Sounds (hypoactive), Other (tympanic throughout entire abd) (Male) Exam: Deferred Rectal (Males) Exam: Deferred Back Exam: Normal Inspection Extremities: Normal Inspection, No Pedal Edema Neurological: Alert, Oriented, CN II-XII Intact, Normal Cognition Psychiatric: Normal Affect, Normal Mood, Anxious Skin Exam: Warm, Dry, Intact, Other (multiple tattoos) Course - Vital Signs Last Recorded V/S: Last Vital Signs Temp 98.8 F 11/10/17 18:05 Pulse 89 11/10/17 18:05 Resp 14 11/10/17 18:05 BP 135/92 H 11/10/17 18:05 Pulse Ox 100 11/10/17 18:05 - Orders/Labs/Meds Orders: Active Orders 24 hr Category Date Time Status Abdomen 2V AP Flat Upright [CR] Stat Exams 11/10/17 19:52 Taken DRUG SCREEN, URINE [URCHEM] Stat Lab 11/10/17 20:05 Ordered Sodium Chloride 0.9% [Normal Saline] 1,000 ml Med 11/10/17 22:02 Ordered IV ONETIME Medication Orders Sodium Chloride (Normal Saline) 1,000 mls @ 999 mls/hr IV ONETIME ONE Stop: 11/10/17 23:02 Last Admin: 11/10/17 22:12 Dose: 999 mls/hr Labs: Laboratory Tests 11/10/17 11/10/17 11/10/17 Range/Units 18:30 18:30 18:30 WBC 6.83 (4.23-9.07) K/mm3 RBC 4.61 L (4.63-6.08) M/mm3 Hgb 13.5 L (13.7-17.5) gm/L Hct 40.2 (40.1-51.0) % MCV 87.2 (79.0-92.2) fl MCH 29.3 (25.7-32.2) pg MCHC 33.6 (32.2-35.5) g/dl RDW Std Deviation 41.7 (35.1-43.9) fL Plt Count 191 (163-337) K/mm3 MPV 9.5 (9.4-12.3) fl Neut % (Auto) 53.1 (34.0-67.9) % Lymph % (Auto) 36.9 (21.8-53.1) % Holt % (Auto) 7.5 (5.3-12.2) % Eos % (Auto) 1.3 (0.8-7.0) Baso % (Auto) 0.3 (0.1-1.2) % Neut # (Auto) 3.63 (1.78-5.38) K/mm3 Lymph # (Auto) 2.52 (1.32-3.57) K/mm3 Holt # (Auto) 0.51 (0.30-0.82) K/mm3 Eos # (Auto) 0.09 (0.04-0.54) K/mm3 Baso # (Auto) 0.02 (0.01-0.08) K/mm3 Sodium 143 (136-145) mEq/L Potassium 3.8 (3.5-5.1) mEq/L Chloride 109 H (98-107) mEq/L Carbon Dioxide 22 (21-32) mEq/L Anion Gap 15.8 H (5-15) BUN 9 (7-18) mg/dL Creatinine 0.9 (0.7-1.3) mg/dL Est Cr Clr Drug Dosing 110.17 mL/min Estimated GFR (MDRD) > 60 (>60) mL/min BUN/Creatinine Ratio 10.0 L (14-18) Glucose 117 H (74-106) mg/dL Calcium 8.5 (8.5-10.1) mg/dL Total Bilirubin 0.2 (0.2-1.0) mg/dL AST 29 (15-37) U/L ALT 70 H (16-63) U/L Alkaline Phosphatase 90 (46-116) U/L C-Reactive Protein < 0.2 (<1.0) mg/dL Total Protein 6.8 (6.4-8.2) g/dl Albumin 3.4 (3.4-5.0) g/dl Globulin 3.4 gm/dL Albumin/Globulin Ratio 1.0 (1-2) Lipase 463 H (73-393) U/L Urine Opiates Screen (NEGATIVE) Ur Buprenorphine Scrn (NEGATIVE) Ur Oxycodone Screen (NEGATIVE) Urine Methadone Screen (NEGATIVE) Ur Propoxyphene Screen (NEGATIVE) Ur Barbiturates Screen (NEGATIVE) Ur Tricyclics Screen (NEGATIVE) Ur Phencyclidine Scrn (NEGATIVE) Ur Amphetamine Screen (NEGATIVE) U Methamphetamines Scrn (NEGATIVE) U Benzodiazepines Scrn (NEGATIVE) U Cocaine Metab Screen (NEGATIVE) U Marijuana (THC) Screen (NEGATIVE) H. pylori IgG Antibody Negative (NEGATIVE) 11/10/17 Range/Units 20:05 WBC (4.23-9.07) K/mm3 RBC (4.63-6.08) M/mm3 Hgb (13.7-17.5) gm/L Hct (40.1-51.0) % MCV (79.0-92.2) fl MCH (25.7-32.2) pg MCHC (32.2-35.5) g/dl RDW Std Deviation (35.1-43.9) fL Plt Count (163-337) K/mm3 MPV (9.4-12.3) fl Neut % (Auto) (34.0-67.9) % Lymph % (Auto) (21.8-53.1) % Holt % (Auto) (5.3-12.2) % Eos % (Auto) (0.8-7.0) Baso % (Auto) (0.1-1.2) % Neut # (Auto) (1.78-5.38) K/mm3 Lymph # (Auto) (1.32-3.57) K/mm3 Holt # (Auto) (0.30-0.82) K/mm3 Eos # (Auto) (0.04-0.54) K/mm3 Baso # (Auto) (0.01-0.08) K/mm3 Sodium (136-145) mEq/L Potassium (3.5-5.1) mEq/L Chloride (98-107) mEq/L Carbon Dioxide (21-32) mEq/L Anion Gap (5-15) BUN (7-18) mg/dL Creatinine (0.7-1.3) mg/dL Est Cr Clr Drug Dosing mL/min Estimated GFR (MDRD) (>60) mL/min BUN/Creatinine Ratio (14-18) Glucose (74-106) mg/dL Calcium (8.5-10.1) mg/dL Total Bilirubin (0.2-1.0) mg/dL AST (15-37) U/L ALT (16-63) U/L Alkaline Phosphatase (46-116) U/L C-Reactive Protein (<1.0) mg/dL Total Protein (6.4-8.2) g/dl Albumin (3.4-5.0) g/dl Globulin gm/dL Albumin/Globulin Ratio (1-2) Lipase (73-393) U/L Urine Opiates Screen Negative (NEGATIVE) Ur Buprenorphine Scrn Negative (NEGATIVE) Ur Oxycodone Screen Negative (NEGATIVE) Urine Methadone Screen Negative (NEGATIVE) Ur Propoxyphene Screen Negative (NEGATIVE) Ur Barbiturates Screen Negative (NEGATIVE) Ur Tricyclics Screen Negative (NEGATIVE) Ur Phencyclidine Scrn Negative (NEGATIVE) Ur Amphetamine Screen Negative (NEGATIVE) U Methamphetamines Scrn Negative (NEGATIVE) U Benzodiazepines Scrn Presumptive positive H (NEGATIVE) U Cocaine Metab Screen Negative (NEGATIVE) U Marijuana (THC) Screen Negative (NEGATIVE) H. pylori IgG Antibody (NEGATIVE) Meds: Medications Generic Name Dose Route Start Last Admin Trade Name Freq PRN Reason Stop Dose Admin Sodium Chloride 1,000 mls @ 999 mls/hr 11/10/17 22:02 11/10/17 22:12 Normal Saline IV 11/10/17 23:02 999 mls/hr ONETIME ONE Administration Discontinued Medications Generic Name Dose Route Start Last Admin Trade Name Freq PRN Reason Stop Dose Admin Famotidine 20 mg 11/10/17 18:40 11/10/17 19:17 Pepcid IVPUSH 11/10/17 18:41 20 mg ONETIME ONE Administration Hydromorphone HCl 0.5 mg 11/10/17 18:56 11/10/17 19:19 Dilaudid IVPUSH 11/10/17 18:57 0.5 mg ONETIME ONE Administration Hydromorphone HCl 1 mg 11/10/17 22:02 11/10/17 22:12 Dilaudid IVPUSH 11/10/17 22:03 1 mg ONETIME ONE Administration Sodium Chloride 1,000 mls @ 999 mls/hr 11/10/17 18:40 11/10/17 19:15 Normal Saline IV 11/10/17 19:40 999 mls/hr ONETIME ONE Administration Ondansetron HCl 4 mg 11/10/17 18:40 11/10/17 19:15 Zofran IVPUSH 11/10/17 18:41 4 mg ONETIME ONE Administration Ondansetron HCl 4 mg 11/10/17 22:02 11/10/17 22:11 Zofran IVPUSH 11/10/17 22:03 4 mg ONETIME ONE Administration Pantoprazole Sodium 40 mg 11/10/17 21:40 11/10/17 21:48 Protonix Iv IVPUSH 11/10/17 21:41 40 mg ONETIME ONE Administration - Re-Assessments/Exams Free Text/Narrative Re-Assessment/Exam: 11/10/17 22:49 Patient with persistent pain, medicated with dilaudid x 2 doses; n/v- medicated with zofran IV x 2 doses with improvement. IVF x 2L NS infused. Patient continues to belch and pass gas which relieves some of the discomfort but distention returns quickly. Review case and images with Dr. Murray who recommends consult with Dr. Wright. Concerns for ? gastric outlet obstruction or something similar; recommends no oral contrast based on amt of debris present in stomach. Spoke with on-call Surgeon Dr. Wirght who recommends PPI therapy and discharge for f/up with PCP, reviewed xray findings- he did not have access from home to view images-, increased pain, I am concerned about and do not agree with discharge home. He states he is unable to do anything for the patient at this time and patient should follow up with PCP. Call placed to [facility], reviewed case, images, labs, VS with General Surgeon, Dr. Blancas who states he will be willing to consult if Hospitalist will accept. Review case with Dr. Witt who is in agreement to accept patient for admission. I speak to ER physician, who reviews xray images with me, also recommends no oral contrast but IV contrast will be helpful. Orders placed. Ambulance transfer arranged for direct admit to [facility] c/o Dr. Witt. Patient is in stable condition at time of discharge with ambulance service. Departure - Departure Time of Disposition: 22:54 Disposition: DC/Tfer to Acute Hospital 02 Condition: Fair Clinical Impression: Abdominal pain Qualifiers: Abdominal location: left upper quadrant Qualified Code(s): R10.12 - Left upper quadrant pain Nausea & vomiting Qualifiers: Vomiting type: unspecified Vomiting Intractability: unspecified Qualified Code( s): R11.2 - Nausea with vomiting, unspecified - Discharge Information Referrals: Mitch Horan Jr, MD [Primary Care Provider] - Forms: ED Department Discharge - My Orders Last 24 Hours: My Active Orders 11/10/17 19:52 Abdomen 2V AP Flat Upright [CR] Stat 11/10/17 20:05 DRUG SCREEN, URINE [URCHEM] Stat 11/10/17 22:02 Sodium Chloride 0.9% [Normal Saline] 1,000 ml IV ONETIME - Assessment/Plan Last 24 Hours: My Active Orders 11/10/17 19:52 Abdomen 2V AP Flat Upright [CR] Stat 11/10/17 20:05 DRUG SCREEN, URINE [URCHEM] Stat 11/10/17 22:02 Sodium Chloride 0.9% [Normal Saline] 1,000 ml IV ONETIME
[2017-11-10] MEDS ORDERED: HYDROmorphone 0.5 MG/0.5 ML SYRINGE IVPUSH ONE ×2 (18:56→22:02)
[2017-11-10] MEDS ORDERED: Pantoprazole 40 MG Vial IVPUSH ONE (21:40)
[2017-11-10] MEDS ORDERED: Iopamidol 612 MG/ML 100 ML Bottle IVPUSH ONE (22:55)
[2017-11-10 23:46] VITALS: BP 131/93
--- NOTE | 2017-11-11 07:07 | CR ---
Abdomen: Supine view of the abdomen was obtained. Upright study also obtained. Stomach dilated and contains food material. Bowel gas pattern is otherwise unremarkable. Surgical clips seen from prior cholecystectomy. Calcification is noted within the pelvis which is compatible with phlebolith. Bony structures are unremarkable. Impression: 1. Dilated stomach containing food material. 2. Other incidental findings. Diagnostic code #3 Agree with preliminary report issued by [facility] ([facility] preliminary report dictated on 11/10/17, 10:00 PM Central Time)
--- NOTE | 2017-11-11 08:54 | CT ---
CT abdomen and pelvis Technique: Multiple axial sections were obtained from above the dome of the diaphragm inferiorly through the pubic symphysis. Intravenous contrast was utilized. No oral contrast has been given. Comparison: Prior abdominal x-ray performed earlier on the same day (7:56 PM) and prior CT abdomen and pelvis exam of 06/12/17. Findings: Dilated stomach containing air and food material is seen. Slight parenchymal density is noted within the right lung base. Liver shows no focal abnormality. Spleen appears within normal limits. Surgical clips are seen from prior cholecystectomy. Adrenal glands show no nodule. Pancreas is within normal limits. Aorta shows no aneurysmal dilatation. No retroperitoneal adenopathy is seen. Kidneys show symmetric contrast enhancement without hydronephrosis or mass. Aorta shows no aneurysmal dilatation. No retroperitoneal adenopathy or mesenteric abnormalities are seen. No pelvic mass or adenopathy is seen. No bowel dilatation is seen. Appendix not definitely visualized. No free fluid or inflammatory change is seen. Bone window settings were reviewed which appear within normal limits for the patient's age. Impression: 1. Dilated stomach is similar to prior CT exam. 2. Prior cholecystectomy. 3. Mild increased density within the right lung base. Differential includes atelectasis as well as bronchitis or area of early pneumonia if patient has infectious symptoms. Findings do not appear as prominent as on prior exam. 4. No additional abnormality is seen on CT study of the abdomen and pelvis. Diagnostic code #3 Agree with preliminary report issued by [facility] ([facility] preliminary report dictated on 11/11/17, 12:35 AM Central Time)
== END 2017-11-10 23:30 ==
LOC: JD.ED 17:42
DX: R10.12 Left upper quadrant pain (principal); R11.2 Nausea with vomiting, unspecified; F17.210 Nicotine dependence, cigarettes, uncomplicated; Z90.49 Acquired absence of other specified parts of digestive tract; Z88.6 Allergy status to analgesic agent
CPT/HCPCS: 36415; 74019; 74177; 80053; 80306; 83690; 85025; 86140; 86677; 96361; 96374; 96375; 96376; 99285; C9113; J1170; J2405; J7040; Q9967

== ENCOUNTER 2019-11-06 08:47 | Emergency (ER) | payer MEDICAID ==
[2019-11-06 09:00] VITALS: BP 137/92; PULSE 91
--- NOTE | 2019-11-06 09:10 | EDM.PDOC ---
ED HPI GENERAL MEDICAL PROBLEM - General Chief Complaint: Upper Extremity Injury/Pain Stated Complaint: R HAND INJURY Time Seen by Provider: 11/06/19 09:05 Source of Information: Reports: Patient History Limitations: Reports: No Limitations - History of Present Illness INITIAL COMMENTS - FREE TEXT/NARRATIVE: 34-year-old male presents to the ED after punching a wall this morning about an hour prior to coming to the ED. He has an obvious deformity to the proximal aspects of fourth and fifth metacarpals right hand. He reports both bones have been broken in the past from similar type injury. Denies any other injuries. He is on Suboxone and therefore cannot take narcotics. Patient is right-hand dominant. Onset: Today, Sudden Onset Date: 11/06/19 Onset Time: 08:00 Duration: Minutes: Location: Reports: Upper Extremity, Right (Injury to the right hand after punching a wall.) Quality: Reports: Ache, Throbbing Severity: Moderate Improves with: Reports: Rest Worsens with: Reports: Movement Context: Reports: Trauma (Blunt force trauma after punching a wall.). Denies: Activity, Exercise, Lifting, Sick Contact Associated Symptoms: Reports: No Other Symptoms Treatments COSTUME MISTRESS: Reports: Other (see below) (None.) Right Hand Pain Score (Numeric/FACES): 7 - Related Data Allergies Allergy/AdvReac Type Severity Reaction Status Date / Time ibuprofen Allergy Swelling Verified 11/06/19 09:01 acetaminophen [From Tylenol] AdvReac Other Verified 11/06/19 09:01 Home Meds: Home Meds Buprenorphine HCl/Naloxone HCl [Zubsolv 11.4-2.9 mg Tablet Sl] 1 tab PO DAILY 12/04/18 [History] Hydrocodone/Acetaminophen [[place] 5-325 Tablet] 1 - 2 each PO Q4H PRN #24 tablet 11/06/19 [Rx] Ketorolac [Toradol] 10 mg PO Q6H PRN #12 tab 11/06/19 [Rx] buPROPion [Wellbutrin SR] 1 tab PO DAILY 11/06/19 [History] Past Medical History - Past Health History Medical/Surgical History: Denies Medical/Surgical History Gastrointestinal History: Reports: GERD, Pancreatitis, PUD Other Gastrointestinal History: Ulcerative colitis Musculoskeletal History: Reports: Fracture Other Musculoskeletal History: right hand Neurological History: Reports: Migraines, Seizure Psychiatric History: Reports: Addiction, Anxiety, Depression - Infectious Disease History Infectious Disease History: Reports: Chicken Pox, Hepatitis C, MRSA - Past Surgical History GI Surgical History: Reports: Cholecystectomy, Colonoscopy, EGD Musculoskeletal Surgical History: Reports: ORIF (Previous surgical pinning of the right fourth and fifth metacarpals in the past.) Social & Family History - Family History Family Medical History: Noncontributory - Tobacco Use Smoking Status *Q: Current Every Day Smoker Years of Tobacco use: 10 Packs/Tins Daily: 0.5 - Caffeine Use Caffeine Use: Reports: None - Recreational Drug Use Recreational Drug Use: Yes Recreational Drug Type: Reports: Marijuana/Hashish - Living Situation & Occupation Living situation: Reports: Single, with Family (Father) Occupation: Unemployed Review of Systems - Review of Systems Review Of Systems: See Below Constitutional: Reports: No Symptoms Eyes: Reports: No Symptoms Ears: Reports: No Symptoms Nose: Reports: No Symptoms Mouth/Throat: Reports: No Symptoms Respiratory: Reports: No Symptoms Cardiovascular: Reports: No Symptoms GI/Abdominal: Reports: No Symptoms Genitourinary: Reports: No Symptoms Musculoskeletal: Reports: Hand Pain (Cute right hand pain after punching a wall.) Skin: Reports: No Symptoms Neurological: Reports: No Symptoms Psychiatric: Reports: Other (History of polysubstance abuse. Currently on Suboxone daily) ED EXAM, GENERAL - Physical Exam Exam: See Below Exam Limited By: No Limitations General Appearance: Alert, WD/WN, Mild Distress, Other (Temperature is 36.7. Heart rate is 91. Respiratory to 16 with O2 sats of 96% room air BP 137/92) Eye Exam: Bilateral Eye: Normal Inspection, PERRL Extremities: Other (Examination limited to his right hand. He has obvious swelling and deformity at the proximal aspects of the fourth and fifth metacarpals right hand. Minimal tenderness over the ulnar styloid process at the wrist. He has no ability to make a fist with his right hand.) Neurological: Alert, Oriented, CN II-XII Intact, Normal Cognition Psychiatric: Normal Mood Skin Exam: Warm, Dry, Intact, Normal Color, No Rash Course - Vital Signs Last Recorded V/S: Last Vital Signs Temp 36.7 C 11/06/19 08:57 Pulse 91 11/06/19 08:57 Resp 16 11/06/19 08:57 BP 137/92 H 11/06/19 08:57 Pulse Ox 96 11/06/19 08:57 - Orders/Labs/Meds Orders: Active Orders 24 hr Category Date Time Status Hand wo Cont Rt [CT] Stat Exams 11/06/19 09:41 Taken Meds: Medications Discontinued Medications Generic Name Dose Route Start Last Admin Trade Name Kallie PRN Reason Stop Dose Admin Ketorolac Tromethamine 10 mg 11/06/19 09:34 11/06/19 09:49 Toradol PO 11/06/19 09:35 10 mg ONETIME ONE Administration - Radiology Interpretation Free Text/Narrative:: 34-year-old male presents to the ED after punching a wall with his right hand. He has obviously injured the proximal bases of the fourth and fifth metacarpals. Reports similar type injury in the past and is unclear where they were surgically pinned or not. Certainly by the amount of swelling that he has present it appears that he has significant deformity at the bases of the fourth and fifth metacarpal. X-rays to be obtained. Patient is on Suboxone and therefore cannot take narcotics for pain medication. He has an allergy to ibuprofen. Is unclear whether he can tolerate Toradol. - Re-Assessments/Exams Free Text/Narrative Re-Assessment/Exam: 11/06/19 09:33 X-rays of the right hand reveal deformities at the bases of both the fourth and fifth metacarpals from previous injuries. No new fractures are identified. Give him Toradol 10 mg tablets to take 1 every 6 hours. For pain relief for the next 3 days. 11/06/19 11:05 CT scan of the right hand has been completed without contrast. Reconstructed coronal and sagittal images were obtained. Findings there is posterior dislocation seen of the fifth and fourth metacarpals in relation to the adjacent carpal bones. Fracture is noted within the anterior base of the fourth metacarpal with small chip fracture showing displacement involving the adjacent posterior carpal bone I believe the triquetrum. Other smaller fracture fragments are seen. Alignment of the thumb second and third metacarpals appear normal. No additional carpal fractures are identified. Distal radius and ulna are intact. To seek an orthopedic surgical opinion. I left a message at [facility] in [place] as well as [facility] in [place]. 11/06/19 11:12 discussed the findings with the patient but he apparently he left the department or eloped. Attempts to phone him at this point time have not been successful and he has no mailbox on his phone. 11/06/19 11:[address] Thompson --therapeutic surgeon on-call at [facility] in [place] and he agrees that the year is a complex problem with potential dislocation of the fourth and fifth metacarpals. He is going to discuss the films with 1 of his partners to our hand surgeons to discuss the urgency or need for reduction immediately or whether this can be way to be repaired. We are still unable to get a hold of the patient as he eloped from the department and has not answered his phone. You have a phone number for his mother in [place] however. Dr. Thompson will be calling me back after his discussion with hand surgeon. 11/06/19 14:36: I did speak what again with Dr. Thompson who has spoken with hand surgeons at his clinic at [facility] in [facility]. Surgical management of this injury is required within the next few days. Patient will be instructed to attend [facility] clinic about 0990 hours on Saturday, November 08 n.p.o. and ready for surgical management either with Dr. Pryor or Dr. Nelson depending on availability. I have written a prescription for [place] tabs 5/325 mg 1 or 2 tablets every 4-6 hours necessary for pain relief in spite of him being on Suboxone. He states he had to use pain pills in the past for fractures and did not have any troubles taking the 2 together. Also wrote a prescription for Toradol 10 mg tablet to be used every 6 hours. For pain relief. Of note he had a eloped from the department and we were finally able to get a hold of them by phone at approximately 1500 hrs. today. He will return to the department to get his discharge paperwork and the prescription for Done[place]. Departure - Departure Time of Disposition: 09:35 Disposition: Eloped 07 Condition: Fair Clinical Impression: Contusion of right hand, initial encounter, Fracture of hand Metacarpal bone fracture Qualifiers: Encounter type: initial encounter Metacarpal bone: fourth Fracture type: closed Metacarpal location: base Fracture alignment: displaced Laterality: right Qualified Code(s): S62.314A - Displaced fracture of base of fourth metacarpal bone, right hand, initial encounter for closed fracture Fracture closed, carpal bone Qualifiers: Encounter type: initial encounter Carpal bone: hamate Hamate bone location: hook process Fracture alignment: displaced Laterality: right Qualified Code(s): S62.151A - Displaced fracture of hook process of hamate [unciform] bone, right wrist, initial encounter for closed fracture Fracture of hand Qualifiers: Encounter type: initial encounter Fracture type: closed - Discharge Information *PRESCRIPTION DRUG MONITORING PROGRAM REVIEWED*: Not Applicable *COPY OF PRESCRIPTION DRUG MONITORING REPORT IN PATIENT GEGE: Not Applicable Prescriptions: Hydrocodone/Acetaminophen [[place] 5-325 Tablet] 1 - 2 each PO Q4H PRN #24 tablet PRN Reason: Pain relief Ketorolac [Toradol] 10 mg PO Q6H PRN #12 tab PRN Reason: Pain relief Instructions: Metacarpal Fracture, Metacarpal Fracture, [id number] Referrals: Mitch Horan Jr, MD [Primary Care Provider] - Forms: ED Department Discharge Additional Instructions: Evaluation in the emergency room today in regards to blunt trauma to the right hand that occurred after you punched a wall. Previous fractures of the bases of the right fourth and fifth metacarpals by history. X-rays today reveal deformities of the bases of the right fourth and fifth metacarpals fracture dislocation posteriorly of both the base of the right and fourth metacarpal. This is an unusual fracture. There is also a fracture of 1 of the bones in your wrist .. Extensive soft tissue swelling over the same area that was broken in the past. This is an unusual fracture as the metacarpals rarely dislocate posteriorly. This is certainly much more visible on CT scan of the area which clench the diagnosis. Unfortunately you left the department before this information could be conveyed to you. Obviously will you will not daily use the hand over the weekend. Treatment is to elevate the hand above the level of the heart is much as possible to reduce swelling and throbbing. Ice pack to the area 1/2-hour out of every 4 hours for the next 3 days. We will require surgery on your hand to repair the dislocations and the fractures. This will have to be performed by a hand surgeon who specializes in this type of injury. I have spoken with [facility] physicians and you are to attend their clinic about 0900 hrs. central standard time on Saturday, November 08. You are not to eat anything past midnight but may drink clear fluids up until 0400 hrs. The plan will be for them to see you and tell you what you are in for in terms of surgical management and then hopefully have the surgery performed on that day. Use are severe enough that they do require surgical fixation within the next 5 to 6 days. May use [place] tabs 5/325 mg 1 or 2 every 4-6 hours as necessary for pain relief over the weekend and after surgery.Tentatively you will see Dr Pryor-- orthopedic surgeon at [facility] in [facility] whom is one of the hand surgeons. Sepsis Event Note (ED) - Evaluation Sepsis Screening Result: No Definite Risk - Focused Exam Vital Signs: Vital Signs Temp Pulse Resp BP Pulse Ox 11/06/19 08:57 36.7 C 91 16 137/92 H 96 - My Orders Last 24 Hours: My Active Orders 11/06/19 09:41 Hand wo Cont Rt [CT] Stat - Assessment/Plan Last 24 Hours: My Active Orders 11/06/19 09:41 Hand wo Cont Rt [CT] Stat
[2019-11-06] MEDS ORDERED: Ketorolac 10 MG Tab PO ONE (09:34)
--- NOTE | 2019-11-06 09:36 | CR ---
Right hand: 3 views of the right hand were obtained. Posterior dislocation is noted of 2 metacarpals at the CMC joint. Small fracture fragment also noted posteriorly. Diffuse soft tissue swelling is noted. No additional abnormality is seen. Impression: 1. Posterior dislocation of 2 metacarpals at the [facility] joint with small fracture fragment seen posteriorly. 2. CT study would be helpful to more accurately evaluate the [facility] joint. Diagnostic code #3 This report was dictated in MDT
--- NOTE | 2019-11-06 15:15 | CT ---
CT right hand Technique: Multiple axial sections through the right hand were obtained. Reconstructed coronal and sagittal images were obtained. Findings: Posterior dislocation is seen of the fifth and fourth metacarpals in relation to the adjacent carpal bones. Fracture is noted within the anterior base of the fourth metacarpal with small chip fracture showing displacement involving the adjacent posterior hamate bone. Other smaller fracture fragments are seen. Alignment of the thumb, second and third metacarpals appear normal. No additional carpal fractures are seen. Distal radius and ulna are intact. Impression: 1. Posterior dislocation of the fourth and fifth metacarpals in relation to the adjacent carpal bones. 2. Fracture within the anterior base of the fourth metacarpal. 3. Small chip fracture off the posterior In tailbone. 4. Other small bony densities are seen compatible with additional small scattered chip fractures. Diagnostic code #3 This report was dictated in MDT MTDD
== END 2019-11-06 10:40 | disposition left against medical advice (07) ==
LOC: JD.ED 08:47
DX: S62.314A Displaced fracture of base of fourth metacarpal bone, right hand, initial encounter for closed fracture (principal); S62.151A Displaced fracture of hook process of hamate [unciform] bone, right wrist, initial encounter for closed fracture; F41.9 Anxiety disorder, unspecified; F32.9 Major depressive disorder, single episode, unspecified; Z79.899 Other long term (current) drug therapy; Z88.6 Allergy status to analgesic agent; F17.210 Nicotine dependence, cigarettes, uncomplicated; W22.01XA Walked into wall, initial encounter
CPT/HCPCS: 73130; 73200; 99284; A9270

== ENCOUNTER 2019-11-07 12:50 | Emergency (ER) | payer MEDICAID ==
[2019-11-07 13:14] VITALS: BP 115/88; PULSE 84
--- NOTE | 2019-11-07 13:29 | EDM.PDOC ---
ED HPI GENERAL MEDICAL PROBLEM - General Chief Complaint: Upper Extremity Injury/Pain Stated Complaint: R HAND PAIN Time Seen by Provider: 11/07/19 13:27 Source of Information: Reports: Patient, Old Records History Limitations: Reports: No Limitations - History of Present Illness INITIAL COMMENTS - FREE TEXT/NARRATIVE: Cesar is a 34 year old male here for pain control. Seen yesterday after punching a wall. Found to have a 4th and 5th metacarpal fracture. Planning to see [facility] Saturday in [place] for repair. He was prescribed toradol and norco. He could not afford the norco and the toradol is not helping. His insurance will not cover the norco since he is currently on suboxone. Here requesting a shot of dilaudid. Reports pain. Right Hand Pain Score (Numeric/FACES): 8 - Related Data Allergies Allergy/AdvReac Type Severity Reaction Status Date / Time ibuprofen Allergy Swelling Verified 11/07/19 13:14 acetaminophen [From Tylenol] AdvReac Other Verified 11/07/19 13:14 Home Meds: Home Meds Buprenorphine HCl/Naloxone HCl [Zubsolv 11.4-2.9 mg Tablet Sl] 1 tab PO DAILY 12/04/18 [History] Hydrocodone/Acetaminophen [[place] 5-325 Tablet] 1 - 2 each PO Q4H PRN #24 tablet 11/06/19 [Rx] Ketorolac [Toradol] 10 mg PO Q6H PRN #12 tab 11/06/19 [Rx] buPROPion [Wellbutrin SR] 1 tab PO DAILY 11/06/19 [History] Past Medical History - Past Health History Medical/Surgical History: Denies Medical/Surgical History Gastrointestinal History: Reports: GERD, Pancreatitis, PUD Other Gastrointestinal History: Ulcerative colitis Musculoskeletal History: Reports: Fracture Other Musculoskeletal History: right hand Neurological History: Reports: Migraines, Seizure Psychiatric History: Reports: Addiction, Anxiety, Depression - Infectious Disease History Infectious Disease History: Reports: Chicken Pox, Hepatitis C, MRSA - Past Surgical History GI Surgical History: Reports: Cholecystectomy, Colonoscopy, EGD Musculoskeletal Surgical History: Reports: ORIF Social & Family History - Family History Family Medical History: Noncontributory - Tobacco Use Smoking Status *Q: Current Every Day Smoker Years of Tobacco use: 25 Packs/Tins Daily: 0.5 - Caffeine Use Caffeine Use: Reports: Coffee - Recreational Drug Use Recreational Drug Use: Yes Drug Use in Last 12 Months: Yes Recreational Drug Type: Reports: Marijuana/Hashish Recreational Drug Use Frequency: Socially - Living Situation & Occupation Living situation: Reports: Single, with Family (Father) Occupation: Unemployed Review of Systems - Review of Systems Review Of Systems: Comprehensive ROS is negative, except as noted in HPI. ED EXAM, GENERAL - Physical Exam Exam: See Below Exam Limited By: No Limitations General Appearance: Alert, WD/WN, No Apparent Distress Extremities: Other (right hand is splinted) Neurological: Alert, Oriented, Normal Cognition Psychiatric: Normal Affect, Normal Mood Course - Vital Signs Last Recorded V/S: Last Vital Signs Temp 97.5 F 11/07/19 13:12 Pulse 84 11/07/19 13:12 Resp 16 11/07/19 13:12 BP 115/88 11/07/19 13:12 Pulse Ox 98 11/07/19 13:12 - Orders/Labs/Meds Meds: Medications Discontinued Medications Generic Name Dose Route Start Last Admin Trade Name Kallie PRN Reason Stop Dose Admin Hydrocodone Bitart/Acetaminophen 1 tab 11/07/19 13:53 [place] 325-5 Mg .ROUTE 11/07/19 13:54 .STK-MED ONE - Re-Assessments/Exams Free Text/Narrative Re-Assessment/Exam: 11/07/19 14:28 I called [facility] to inquire about the costs. They confirm he has not yet picked up the norco. the costs is $54 because his insurance will not cover as he is on suboxone. I returned to the room to tell them this and he was leaving. He then asked for a shot of dilaudid. I will give him a PO norco and discharge him. I reminded him of his appointment on Saturday. Departure - Departure Time of Disposition: 14:10 Disposition: Home, Self-Care 01 Condition: Good Clinical Impression: Fracture of hand - Discharge Information *PRESCRIPTION DRUG MONITORING PROGRAM REVIEWED*: Yes *COPY OF PRESCRIPTION DRUG MONITORING REPORT IN PATIENT GEGE: No Referrals: PCP,None [Primary Care Provider] - Forms: ED Department Discharge Additional Instructions: you were given medication in the ER that can impair your ability to drive and operate machinery. Do not drive or operate machinery within 2 hours of taking prescription narcotic pain medication. Fill your prescription yesterday and take as needed for pain. present to [facility] Saturday morning at 9:00am [facility] time. Nothing to eat or drink after midnight. Plan to go to the OR Saturday for repair. Please return to the ER should your symptoms change or worsen. Sepsis Event Note (ED) - Evaluation Sepsis Screening Result: No Definite Risk - Focused Exam Vital Signs: Vital Signs Temp Pulse Resp BP Pulse Ox 11/07/19 13:12 97.5 F 84 16 115/88 98
[2019-11-07] MEDS ORDERED: Acetaminophen/HYDROcodone 325-5 MG Tab ONE (13:53)
== END 2019-11-07 14:45 | disposition home or self-care (01) ==
LOC: JD.ED 12:50
DX: S62.304A Unspecified fracture of fourth metacarpal bone, right hand, initial encounter for closed fracture (principal); S62.306A Unspecified fracture of fifth metacarpal bone, right hand, initial encounter for closed fracture; F41.9 Anxiety disorder, unspecified; F32.9 Major depressive disorder, single episode, unspecified; F17.210 Nicotine dependence, cigarettes, uncomplicated; Z88.6 Allergy status to analgesic agent; Z79.899 Other long term (current) drug therapy; W22.01XA Walked into wall, initial encounter
CPT/HCPCS: 99282; 99283

== ENCOUNTER 2019-11-25 13:01 | Emergency (ER) | payer MEDICAID ==
[2019-11-25 13:13] VITALS: BP 135/89; PULSE 90
[2019-11-25] MEDS ORDERED: Ketorolac 60 MG/2 ML SDV IM ONE (13:21)
--- NOTE | 2019-11-25 13:27 | EDM.PDOC ---
ED HPI GENERAL MEDICAL PROBLEM - General Chief Complaint: ENT Problem Stated Complaint: DENTAL COMPLAINT Time Seen by Provider: 11/25/19 13:11 Source of Information: Reports: Patient, RN Notes Reviewed History Limitations: Reports: No Limitations - History of Present Illness INITIAL COMMENTS - FREE TEXT/NARRATIVE: Patient is a 34-year-old male who presents to the ED for the evaluation of a dental issue. Patient notes that he has had this pain in his right upper jaw for the last 3 days. Patient notes it is been bothering for the past few days, but this morning when he woke up, he appreciated some swelling to the upper side of his face along with pain that radiates up into his ear. He states that he did take 800 mg ibuprofen and 2 extended release Tylenol around 2 hours ago, and this has not really touch the pain much at all. He notes that he recently got released from retirement on some unpaid fines, so he is not been able to see a dentist. He also notes that he missed his Ortho appointment for his hand fracture 2 weeks ago due to being in retirement. Other than this. Patient denies any fever/chills, cough/shortness of breath, nausea/vomiting/diarrhea, or any other sick-like symptoms. Right Upper Oral/Mouth Pain Score (Numeric/FACES): 8 - Related Data Allergies Allergy/AdvReac Type Severity Reaction Status Date / Time No Known Allergies Allergy Verified 11/25/19 13:13 Home Meds: Home Meds Amino AC/Whey Prot Conc, Isol [Whey Protein Powder] 907 gm PO DAILY 11/25/19 [History] Amino Acids [Amino Acid] 1 each PO DAILY 11/25/19 [History] Amoxicillin/Clavulanate K [Augmentin 875-125 MG] 1 tab PO BID #14 tablet 11/25/19 [Rx] Buprenorphine/Naloxone [Buprenorphine-Naloxone 8 MG-2 MG] 1 tab SL DAILY 11/25/19 [History] Cyanocobalamin (Vitamin B12) [Vitamin B12] 1,000 mcg PO DAILY 11/25/19 [History] Naproxen [Naprosyn] 500 mg PO Q12HR #14 tab 11/25/19 [Rx] [place]-3/DHA/Epa/Fish Oil [Fish Oil 1,000 mg Softgel] 1 each PO DAILY 11/25/19 [History] Past Medical History HEENT History: Reports: Other (See Below) Other HEENT History: Dental Abscess Gastrointestinal History: Reports: GERD, Pancreatitis, PUD Other Gastrointestinal History: Ulcerative colitis Musculoskeletal History: Reports: Fracture Other Musculoskeletal History: right hand surgery after boxer's fx Neurological History: Reports: Migraines, Seizure Psychiatric History: Reports: Addiction, Anxiety, Depression - Infectious Disease History Infectious Disease History: Reports: Hepatitis C (states that his body cleared the infection itself without treatment), MRSA - Past Surgical History GI Surgical History: Reports: Cholecystectomy, Colonoscopy, EGD Musculoskeletal Surgical History: Reports: ORIF Social & Family History - Family History Family Medical History: Noncontributory - Tobacco Use Smoking Status *Q: Current Every Day Smoker Years of Tobacco use: 20 Packs/Tins Daily: 0.5 - Caffeine Use Caffeine Use: Reports: Coffee - Recreational Drug Use Recreational Drug Use: No - Living Situation & Occupation Living situation: Reports: Single, with Family (Father) Occupation: Unemployed ED ROS ENT - Review of Systems Review Of Systems: Comprehensive ROS is negative, except as noted in HPI. ED EXAM, ENT - Physical Exam Exam: See Below Exam Limited By: No Limitations General Appearance: Alert, WD/WN, No Apparent Distress Mouth/Throat: Normal Inspection, Normal Gums, Normal Lips, Normal Oropharynx, Dental Abcess (Right upper molar), Dental Pain (right upper molar) Head: Atraumatic, Normocephalic (Slight swelling noted to the right maxillary area, this is the area of concern for dental pain.) Respiratory/Chest: No Respiratory Distress, Lungs Clear, Normal Breath Sounds, No Accessory Muscle Use, Chest Non-Tender Cardiovascular: Normal Peripheral Pulses, Regular Rate, Rhythm, No Murmur Extremities: Normal Inspection, Normal Capillary Refill Neurological: Alert, Oriented, Normal Cognition, No Motor/Sensory Deficits Psychiatric: Normal Affect, Normal Mood Skin: Warm, Dry, Intact, Normal Color, No Rash Course - Vital Signs Last Recorded V/S: Last Vital Signs Temp 97.7 F 11/25/19 13:10 Pulse 90 11/25/19 13:10 Resp 16 11/25/19 13:10 BP 135/89 11/25/19 13:10 Pulse Ox 99 11/25/19 13:10 - Orders/Labs/Meds Meds: Medications Discontinued Medications Generic Name Dose Route Start Last Admin Trade Name Freq PRN Reason Stop Dose Admin Ketorolac Tromethamine 60 mg 11/25/19 13:21 Toradol IM 11/25/19 13:22 ONETIME ONE - Re-Assessments/Exams Free Text/Narrative Re-Assessment/Exam: 11/25/19 13:28 Patient presents to the ED for his dental complaint. He will be given a 60 mg IM injection of Toradol, and given a prescription for antibiotics and Naprosyn with referral to dentist providers, and also given Dr. Dee's [facility] clinic number so he can set up appointment for further management. Departure - Departure Time of Disposition: 13:28 Disposition: Home, Self-Care 01 Condition: Good Clinical Impression: Dental caries, Dental abscess - Discharge Information *PRESCRIPTION DRUG MONITORING PROGRAM REVIEWED*: No *COPY OF PRESCRIPTION DRUG MONITORING REPORT IN PATIENT GEGE: No Prescriptions: Amoxicillin/Clavulanate K [Augmentin 875-125 MG] 1 tab PO BID #14 tablet Naproxen [Naprosyn] 500 mg PO Q12HR #14 tab Instructions: Dental Abscess, [id number] Referrals: Mitch Horan Jr, MD [Primary Care Provider] - Additional Instructions: You have been evaluated in the ED for your dental pain. You have been provided with a script for Augmentin. This was electronically sent to [facility] located [facility], [place]. Please take this medication as directed. (1 tab twice daily for 7 days or until gone). This antibiotic can cause diarrhea, recommend that you start a probiotic while taking this medication. You were given a prescription for Naprosyn, Please take 1 tab every 12 hours for pain relief. You may use hot pack/ ice packs to the affected area as tolerated in 15-20 minute intervals. You will ultimately need to find a dentist to provide definitive management of your dental pain. The [facility] in [place], [place], , is a clinic that has been known to take people that do not have dental insurance, and may provide payment plans. You might want to check with this provider, regarding your dental pain. In regards to your hand fracture, Dr. [facility] [phone] millie gagnon call his office and explain why you missed your last appointment, for placement of cast, and further management needed. Please return to the ED if your symptoms change or worsen. Sepsis Event Note (ED) - Evaluation Sepsis Screening Result: No Definite Risk - Focused Exam Vital Signs: Vital Signs Temp Pulse Resp BP Pulse Ox 11/25/19 13:10 97.7 F 90 16 135/89 99
== END 2019-11-25 13:38 | disposition home or self-care (01) ==
LOC: JD.ED 13:01
DX: K04.7 Periapical abscess without sinus (principal); K02.9 Dental caries, unspecified; F17.210 Nicotine dependence, cigarettes, uncomplicated
CPT/HCPCS: 96372; 99282; J1885; 99283

== ENCOUNTER 2019-12-12 03:52 | Emergency (ER) | payer MEDICAID ==
[2019-12-12 04:08] VITALS: BP 144/92; PULSE 76
--- NOTE | 2019-12-12 04:46 | EDM.PDOC ---
ED HPI GENERAL MEDICAL PROBLEM - General Chief Complaint: Upper Extremity Injury/Pain Stated Complaint: FELL AND INJURED HIS RIGHT ARM Time Seen by Provider: 12/12/19 04:08 Source of Information: Reports: Patient History Limitations: Reports: No Limitations - History of Present Illness INITIAL COMMENTS - FREE TEXT/NARRATIVE: Is a 34-year-old male. He apparently 6 weeks ago had a fracture dislocation his hand or his wrist he is not sure which. He saw Dr. Harding in [place] who put him in a splint. He was supposed to be casted but he missed his appointment because he was in residential. He apparently fell down some steps yesterday and he awoke this morning with increased pain in his right hand and wrist. He does have a gutter splint on his right hand and wrist it appears to be intact. There is no other acute findings. He does have warmth and sensation to each of his fingers. Looking in his old record he had a posterior dislocation of the fourth and fifth metacarpals adjacent to the carpal bones and a small fracture noted. Right Hand Pain Score (Numeric/FACES): 7 - Related Data Allergies Allergy/AdvReac Type Severity Reaction Status Date / Time No Known Allergies Allergy Verified 12/12/19 04:08 Home Meds: Home Meds Amino AC/Whey Prot Conc, Isol [Whey Protein Powder] 907 gm PO DAILY 11/25/19 [History] Amino Acids [Amino Acid] 1 each PO DAILY 11/25/19 [History] Amoxicillin/Clavulanate K [Augmentin 875-125 MG] 1 tab PO BID #14 tablet 11/25/19 [Rx] Buprenorphine/Naloxone [Buprenorphine-Naloxone 8 MG-2 MG] 1 tab SL DAILY 11/25/19 [History] Cyanocobalamin (Vitamin B12) [Vitamin B12] 1,000 mcg PO DAILY 11/25/19 [History] Naproxen [Naprosyn] 500 mg PO Q12HR #14 tab 11/25/19 [Rx] [place]-3/DHA/Epa/Fish Oil [Fish Oil 1,000 mg Softgel] 1 each PO DAILY 11/25/19 [History] Past Medical History HEENT History: Reports: Other (See Below) Other HEENT History: Dental Abscess Cardiovascular History: Reports: None Respiratory History: Reports: None Gastrointestinal History: Reports: GERD, Pancreatitis, PUD Other Gastrointestinal History: Ulcerative colitis Genitourinary History: Reports: None Musculoskeletal History: Reports: Fracture Other Musculoskeletal History: right hand Neurological History: Reports: Migraines, Seizure Psychiatric History: Reports: Addiction, Anxiety, Depression Endocrine/Metabolic History: Reports: None Hematologic History: Reports: None Immunologic History: Reports: None Oncologic (Cancer) History: Reports: None Dermatologic History: Reports: None - Infectious Disease History Infectious Disease History: Reports: Chicken Pox, Hepatitis C, MRSA - Past Surgical History GI Surgical History: Reports: Cholecystectomy, Colonoscopy, EGD Social & Family History - Family History Family Medical History: Noncontributory - Tobacco Use Smoking Status *Q: Current Every Day Smoker Years of Tobacco use: 1 Packs/Tins Daily: 15 - Caffeine Use Caffeine Use: Reports: Coffee - Living Situation & Occupation Living situation: Reports: Single, with Family (Father) Occupation: Unemployed Review of Systems - Review of Systems Review Of Systems: See Below Constitutional: Denies: Chills, Fever Eyes: Reports: No Symptoms Ears: Reports: No Symptoms Nose: Reports: No Symptoms Mouth/Throat: Reports: No Symptoms Respiratory: Denies: Shortness of Breath, Cough Cardiovascular: Reports: No Symptoms GI/Abdominal: Reports: No Symptoms Genitourinary: Reports: No Symptoms Musculoskeletal: Reports: Other (Right hand and wrist fracture greater than 6 weeks old) Skin: Reports: No Symptoms Neurological: Reports: No Symptoms Psychiatric: Reports: No Symptoms ED EXAM, GENERAL - Physical Exam Exam: See Below Exam Limited By: No Limitations General Appearance: Alert, WD/WN, No Apparent Distress Eye Exam: Bilateral Eye: Normal Inspection Ears: Normal External Exam Nose: Normal Inspection Throat/Mouth: Normal Voice, No Airway Compromise Head: Normocephalic Neck: Supple Respiratory/Chest: No Respiratory Distress Back Exam: Full Range of Motion Extremities: Other (Has a gutter splint from his mid forearm down to his hand including his ring and little finger but not so much his index and middle finger or thumb. His fingers have neurologically intact and his fingers are warm with good capillary refill. He is able to move his fingers. No other acute findings.) Neurological: Alert, Oriented Psychiatric: Normal Affect, Normal Mood Skin Exam: Warm, Dry Course - Vital Signs Last Recorded V/S: Last Vital Signs Temp 97.8 F 12/12/19 04:04 Pulse 76 12/12/19 04:04 Resp 16 12/12/19 04:04 BP 144/92 H 12/12/19 04:04 Pulse Ox 100 12/12/19 04:04 - Re-Assessments/Exams Free Text/Narrative Re-Assessment/Exam: 12/12/19 04:46 I had just stepped out of the room and order the x-rays when the nurse comes back to me stating that he has eloped along with his girlfriend. I really do not know why since I am trying to help him. I was going to re-x-ray him and if there seem to be any additional damage provide something or re-splint him. Departure - Departure Time of Disposition: 04:47 Disposition: Eloped 07 Condition: Good Clinical Impression: Closed disp fracture of base of fourth metacarpal bone of right hand Qualifiers: Encounter type: initial encounter Qualified Code(s): S62.314A - Displaced fracture of base of fourth metacarpal bone, right hand, initial encounter for closed fracture Displaced fracture of fifth metacarpal bone of right hand Qualifiers: Encounter type: initial encounter Fracture type: closed Metacarpal location: base Qualified Code(s): S62.316A - Displaced fracture of base of fifth metacarpal bone, right hand, initial encounter for closed fracture Closed displaced fracture of hook process of hamate of right wrist Qualifiers: Encounter type: initial encounter Qualified Code(s): S62.151A - Displaced fracture of hook process of hamate [unciform] bone, right wrist, initial encounter for closed fracture - Discharge Information *PRESCRIPTION DRUG MONITORING PROGRAM REVIEWED*: Yes *COPY OF PRESCRIPTION DRUG MONITORING REPORT IN PATIENT GEGE: No Referrals: PCP,Not In Area [Primary Care Provider] - Forms: ED Department Discharge, Refusal of Exam and Treatment Additional Instructions: Patient eloped so there are no discharge instructions. I already told him to follow-up with Dr. Harding in [place] for reevaluation of his hand and possible casting. Sepsis Event Note (ED) - Evaluation Sepsis Screening Result: No Definite Risk - Focused Exam Vital Signs: Vital Signs Temp Pulse Resp BP Pulse Ox 12/12/19 04:04 97.8 F 76 16 144/92 H 100
== END 2019-12-12 04:45 | disposition left against medical advice (07) ==
LOC: JD.ED 03:52
DX: S62.314A Displaced fracture of base of fourth metacarpal bone, right hand, initial encounter for closed fracture (principal); S62.316A Displaced fracture of base of fifth metacarpal bone, right hand, initial encounter for closed fracture; S62.151A Displaced fracture of hook process of hamate [unciform] bone, right wrist, initial encounter for closed fracture; F17.210 Nicotine dependence, cigarettes, uncomplicated; Z79.899 Other long term (current) drug therapy; W10.9XXA Fall (on) (from) unspecified stairs and steps, initial encounter
CPT/HCPCS: 99282; 99283

== ENCOUNTER 2020-01-20 02:33 | Emergency (ER) | payer MEDICAID ==
[2020-01-20] MEDS ORDERED: Ondansetron 4 MG Tab.DIS PO ONE (03:02)
[2020-01-20] MEDS ORDERED: Acetaminophen/oxyCODONE 325-5 MG Tab PO ONE (03:02)
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
[2020-01-20 03:11] VITALS: BP 135/93; PULSE 85
--- NOTE | 2020-01-20 06:22 | CR ---
Right hand: 3 views of the right hand were obtained. Comparison: Previous CT and and right radiographic hand dated 11/06/19. 2 fixation screws are noted affixing the base of the fifth metatarsal in alignment to the carpal bones. Fiberglass splint is in place. No acute fracture or other abnormality is appreciated. Diffuse soft tissue swelling is noted. Impression: 1. 2 fixation screws affixing previous fracture dislocation. 2. Soft tissue swelling with fiberglass cast. 3. No definite acute bony abnormality is appreciated. Diagnostic code #2 Study was dictated in MDT
== END 2020-01-20 03:45 | disposition home or self-care (01) ==
LOC: JD.ED 02:33
DX: S60.221A Contusion of right hand, initial encounter (principal); F17.210 Nicotine dependence, cigarettes, uncomplicated; W23.0XXA Caught, crushed, jammed, or pinched between moving objects, initial encounter
CPT/HCPCS: 73130; 99283; A9270

== ENCOUNTER 2020-01-23 14:34 | Emergency (ER) | payer MEDICAID ==
[2020-01-23 14:45] VITALS: BP 139/82; PULSE 99
[2020-01-23] MEDS ORDERED: HYDROmorphone 0.5 MG/0.5 ML Syringe IVPUSH ONE ×2 (16:00→18:08)
[2020-01-23] MEDS ORDERED: Ketorolac 30 MG/ML SDV IVPUSH ONE (16:00)
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
--- NOTE | 2020-01-25 11:03 | CR ---
Right hand: 4 views of the right hand were obtained. Comparison: Prior right hand study of 01/20/20. 2 fixation pins are again noted within the base of the metacarpals and carpal bones. Alignment is similar to prior study. Fiberglas splint or cast is noted. No focal bony erosions or soft tissue air is seen. Impression: 1. Prior surgery. 2. Nothing acute is appreciated. Diagnostic code #2 This report was dictated in MDT
== END 2020-01-23 18:30 ==
LOC: JD.ED 14:34
DX: M96.89 Other intraoperative and postprocedural complications and disorders of the musculoskeletal system (principal); F17.210 Nicotine dependence, cigarettes, uncomplicated; Z20.828 Contact with and (suspected) exposure to other viral communicable diseases
CPT/HCPCS: 36415; 73130; 80053; 85025; 86140; 87635; 96374; 96375; 96376; 99284; J1170; J1885; U0002

== ENCOUNTER 2020-03-01 17:00 | Emergency (ER) | payer MEDICAID ==
[2020-03-01 17:20] VITALS: BP 153/97; PULSE 94
--- NOTE | 2020-03-01 18:07 | EDM.PDOC ---
ED HPI GENERAL MEDICAL PROBLEM - General Chief Complaint: Upper Extremity Injury/Pain Stated Complaint: BONE INFECTION/RT HAND PAIN Time Seen by Provider: 03/01/20 17:30 - History of Present Illness INITIAL COMMENTS - FREE TEXT/NARRATIVE: 34-year-old male presents the emergency room with hand pain. Patient spent nearly 2 months in [facility]. He was treated for a hand infection that was limb threatening. He had poor follow-up following his initial surgery after he broke his hand. This was complicated by an infection. This required several surgeries and lots of IV antibiotics. He was initially scheduled to be discharged from [facility] today however infectious disease recommended another week of IV antibiotics. The patient signed out AMA they gave him prescriptions for his oral antibiotics but did not want to give him anything for pain. Sounds like the patient was on OxyContin 20 mg twice daily and OxyIR 10 mg as needed 4 times daily. He has follow-up with his regular physician tomorrow to get a referral to orthopedics and to discuss pain management. He comes in [facility] requesting help with his pain management. Right Wrist Pain Score (Numeric/FACES): 8 - Related Data Allergies Allergy/AdvReac Type Severity Reaction Status Date / Time No Known Allergies Allergy Verified 03/01/20 17:20 Home Meds: Home Meds Amoxicillin/Potassium Clav [Augmentin 875-125 Tablet] 1 tab PO BID 03/01/20 [History] oxyCODONE HCl [Oxycodone HCl] 10 mg PO Q6H PRN #3 tablet 03/01/20 [Rx] Past Medical History HEENT History: Reports: Other (See Below) Other HEENT History: Dental Abscess Cardiovascular History: Reports: None Respiratory History: Reports: None Gastrointestinal History: Reports: GERD, Pancreatitis, PUD Other Gastrointestinal History: Ulcerative colitis Genitourinary History: Reports: None Musculoskeletal History: Reports: Fracture Other Musculoskeletal History: right hand--apparently suffered traumatic dislocation of the fourth and fifth metacarpals at the wrist with some sliver fractures of the carpal bones in late November of this year. Neurological History: Reports: Migraines, Seizure Psychiatric History: Reports: Addiction, Anxiety, Depression Endocrine/Metabolic History: Reports: None Hematologic History: Reports: None Immunologic History: Reports: None Oncologic (Cancer) History: Reports: None Dermatologic History: Reports: None - Infectious Disease History Infectious Disease History: Reports: Chicken Pox, Hepatitis C - Past Surgical History GI Surgical History: Reports: Cholecystectomy, Colonoscopy, EGD Social & Family History - Family History Family Medical History: Noncontributory - Tobacco Use Tobacco Use Status *Q: Former Tobacco User Used Tobacco, but Quit: Yes Month/Year Tobacco Last Used: 01/2020 - Caffeine Use Caffeine Use: Reports: Coffee - Recreational Drug Use Recreational Drug Use: Yes Drug Use in Last 12 Months: Yes Recreational Drug Type: Reports: Methamphetamine Recreational Drug Use Frequency: Not Used In Over 3 Months - Living Situation & Occupation Living situation: Reports: Single, with Family (Father) Occupation: Unemployed Review of Systems - Review of Systems Review Of Systems: See Below Constitutional: Reports: No Symptoms Respiratory: Reports: No Symptoms Cardiovascular: Reports: No Symptoms GI/Abdominal: Reports: No Symptoms ED EXAM, GENERAL - Physical Exam Exam: See Below General Appearance: Alert, No Apparent Distress Respiratory/Chest: No Respiratory Distress, Lungs Clear, Normal Breath Sounds Cardiovascular: Regular Rate, Rhythm, No Edema, No Murmur GI/Abdominal: Normal Bowel Sounds, Soft, Non-Tender Extremities: Other (Patient has a clean dressing and splint on his hand.) Course - Vital Signs Last Recorded V/S: Last Vital Signs Temp 37.0 C 03/01/20 17:12 Pulse 94 03/01/20 17:12 Resp 18 03/01/20 17:12 BP 153/97 H 03/01/20 17:12 Pulse Ox 100 03/01/20 17:12 - Re-Assessments/Exams Free Text/Narrative Re-Assessment/Exam: 03/01/20 18:07 I discussed the situation in detail with the patient and how he needs to own up to his poor choices. However if he was taking 80 mg of oxycodone a day he is much bigger risk of withdrawal and having problems associated with that. Against what I told him initially I will give him 3 10 mg OxyIR's that must last him until he sees his regular physician tomorrow evening. Departure - Departure Time of Disposition: 18:08 Disposition: Home, Self-Care 01 Clinical Impression: Hand pain - Discharge Information Referrals: Mitch Horan Jr, MD [Primary Care Provider] - Forms: ED Department Discharge Additional Instructions: Return to the emergency room with any questions problems or worsening symptoms however we will not give you any more pain medication for this problem. Follow-up with your doctor tomorrow as scheduled. As we discussed I will send a prescription for 3 OxyIR's to [facility] in [place]. Sepsis Event Note (ED) - Evaluation Sepsis Screening Result: No Definite Risk - Focused Exam Vital Signs: Vital Signs Temp Pulse Resp BP Pulse Ox 03/01/20 17:12 37.0 C 94 18 153/97 H 100
== END 2020-03-01 18:20 | disposition home or self-care (01) ==
LOC: JD.ED 17:00
DX: M79.641 Pain in right hand (principal); Z87.891 Personal history of nicotine dependence
CPT/HCPCS: 99283

== ENCOUNTER 2020-03-15 22:14 | Emergency (ER) | payer MEDICAID ==
[2020-03-15 22:29] VITALS: BP 138/91; PULSE 114
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
== END 2020-03-15 23:20 | disposition home or self-care (01) ==
LOC: JD.ED 22:14
DX: M25.531 Pain in right wrist (principal); M79.641 Pain in right hand; F17.210 Nicotine dependence, cigarettes, uncomplicated; X50.1XXA Overexertion from prolonged static or awkward postures, initial encounter
CPT/HCPCS: 73110-26-RT; 73110-RT; 73130-26-RT; 73130-RT; 99283

== ENCOUNTER 2020-08-31 14:50 | Emergency (ER) | payer MEDICAID | END 2020-08-31 15:20 | disposition left against medical advice (07) | LOC: JD.ED 14:50 | DX: Z53.21 Procedure and treatment not carried out due to patient leaving prior to being seen by health care provider (principal) ==

== ENCOUNTER 2020-09-26 12:59 | Emergency (ER) | payer MEDICAID ==
[2020-09-26 13:16] VITALS: BP 131/80; PULSE 91
[2020-09-26] MEDS ORDERED: Ketorolac 60 MG/2 ML SDV IM ONE (13:56)
[2020-09-26] MEDS ORDERED: HYDROmorphone 1 MG/ML Syringe IM ONE (13:57)
[2020-09-26] MEDS ORDERED: Penicillin V Potassium 500 MG Tab PO ONE (14:01)
--- NOTE | 2020-09-26 14:08 | EDM.PDOC ---
ED HPI GENERAL MEDICAL PROBLEM - General Chief Complaint: ENT Problem Stated Complaint: DENTAL COMPLAINT Time Seen by Provider: 09/26/20 13:08 Source of Information: Reports: Patient, RN Notes Reviewed History Limitations: Reports: No Limitations - History of Present Illness INITIAL COMMENTS - FREE TEXT/NARRATIVE: Patient is a 35-year-old male presenting to the emergency department with complaints of right upper dental pain and swelling. He states he has been having problems with this for the last few weeks. He finished a course of antibiotics approximately 2 weeks ago and states that the symptoms had resolved, however over the last 2 to 3 days they have returned. He has an appointment scheduled with his dentist on . Denies any fever, chills, nausea, or vomiting. He has been taken Tylenol and ibuprofen for discomfort with little relief. He is unsure which antibiotic he was on but states that it ended in a "mycin ". 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 Right Cheek Pain Score (Numeric/FACES): 9 - Related Data Allergies Allergy/AdvReac Type Severity Reaction Status Date / Time No Known Allergies Allergy Verified 09/26/20 13:09 Home Meds: Home Meds Acetaminophen/Codeine [Tylenol with Codeine No.3 300MG/30MG] 1 tab PO Q4H PRN #15 tab 09/26/20 [Rx] Penicillin V Potassium 500 mg PO Q6HR 10 Days #40 tab 09/26/20 [Rx] clonazePAM [Clonazepam] 1 mg PO BID 09/26/20 [History] Past Medical History HEENT History: Reports: Other (See Below) Other HEENT History: Dental Abscess Cardiovascular History: Reports: None Respiratory History: Reports: None Gastrointestinal History: Reports: GERD, Pancreatitis, PUD Other Gastrointestinal History: Ulcerative colitis Genitourinary History: Reports: None Musculoskeletal History: Reports: Fracture Other Musculoskeletal History: right hand--apparently suffered traumatic dislocation of the fourth and fifth metacarpals at the wrist with some sliver fractures of the carpal bones in late November of this year. Neurological History: Reports: Migraines, Seizure Psychiatric History: Reports: Addiction, Anxiety, Depression Endocrine/Metabolic History: Reports: None Hematologic History: Reports: None Immunologic History: Reports: None Oncologic (Cancer) History: Reports: None Dermatologic History: Reports: None - Infectious Disease History Infectious Disease History: Reports: Chicken Pox, Hepatitis C - Past Surgical History GI Surgical History: Reports: Cholecystectomy, Colonoscopy, EGD Other GI Surgeries/Procedures: hepatitis c Musculoskeletal Surgical History: Reports: Other (See Below) Other Musculoskeletal Surgeries/Procedures:: Pt has had multiple surgeries to the right hand/wrist due to a fracture and 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 Social & Family History - Family History Family Medical History: No Pertinent Family History - Tobacco Use Tobacco Use Status *Q: Current Every Day Tobacco User Years of Tobacco use: 22 Packs/Tins Daily: 1 Second Hand Smoke Exposure: No - Caffeine Use Caffeine Use: Reports: Energy Drinks, Soda - Recreational Drug Use Recreational Drug Use: No - Living Situation & Occupation Living situation: Reports: Single, with Family (Father) Occupation: Unemployed ED ROS ENT - Review of Systems Review Of Systems: Comprehensive ROS is negative, except as noted in HPI. ED EXAM, ENT - Physical Exam Exam: See Below Exam Limited By: No Limitations General Appearance: Alert, WD/WN, No Apparent Distress Mouth/Throat: Normal Lips, Normal Oropharynx, Dental Pain (tooth 13 ), Dental Tenderness, Gum Swelling (superior to tooth 13) Respiratory/Chest: No Respiratory Distress, Lungs Clear, Normal Breath Sounds, No Accessory Muscle Use, Chest Non-Tender Cardiovascular: Normal Peripheral Pulses, Regular Rate, Rhythm, No Edema, No Gallop, No JVD, No Murmur, No Rub Neurological: Alert, Oriented, CN II-XII Intact, Normal Cognition, Normal Gait, Normal Reflexes, No Motor/Sensory Deficits Psychiatric: Normal Affect, Normal Mood Skin: Warm, Dry, Intact, Normal Color, No Rash Course - Vital Signs Last Recorded V/S: Last Vital Signs Temp 98.8 F 09/26/20 13:10 Pulse 91 09/26/20 13:10 Resp 18 09/26/20 13:10 BP 131/80 09/26/20 13:10 Pulse Ox 97 09/26/20 13:10 - Orders/Labs/Meds Meds: Medications Discontinued Medications Generic Name Dose Route Start Last Admin Trade Name Roshanq PRN Reason Stop Dose Admin Hydromorphone HCl 1 mg 09/26/20 13:57 Hydromorphone 1 Mg/Ml Syringe IM 09/26/20 13:58 ONETIME ONE Ketorolac Tromethamine 60 mg 09/26/20 13:56 Ketorolac 60 Mg/2 Ml Sdv IM 09/26/20 13:57 ONETIME ONE Penicillin V Potassium 500 mg 09/26/20 14:01 Penicillin V Potassium 500 Mg Tab PO 09/26/20 14:02 Q8H ONE - Re-Assessments/Exams Free Text/Narrative Re-Assessment/Exam: Patient is a 35-year-old male presenting to the emergency department with complaints of dental pain and swelling on his right upper mouth. Reports this has been going on off and on for the last few weeks. He finished a course of antibiotics approximately 2 weeks ago and states his symptoms had resolved, how ever they returned 2 to 3 days ago. On exam, he does have tenderness and swelling superior to tooth 13. He has an appointment scheduled the dentist on of this week. I have ordered Toradol 60 mg IM and Dilaudid 1 mg IM to be given now. We will start him on penicillin V for treatment of odontic infection. Discussed with him the importance of keeping his appointment with the dentist as this would likely recur until the tooth is removed or repaired. He verbalized understanding of this. Discharge instructions as documented. Departure - Departure Time of Disposition: 14:12 Disposition: Home, Self-Care 01 Condition: Good Clinical Impression: Dental caries - Discharge Information *PRESCRIPTION DRUG MONITORING PROGRAM REVIEWED*: Yes *COPY OF PRESCRIPTION DRUG MONITORING REPORT IN PATIENT GEGE: No Prescriptions: Penicillin V Potassium 500 mg PO Q6HR 10 Days #40 tab Acetaminophen/Codeine [Tylenol with Codeine No.3 300MG/30MG] 1 tab PO Q4H PRN #15 tab PRN Reason: Pain/Fever Referrals: PCP,None [Primary Care Provider] - Forms: ED Department Discharge Additional Instructions: You were seen in the emergency department today for evaluation with regards to pain and swelling to your right upper mouth. While in the ER, you received an injection of Toradol and Dilaudid for pain. You been started on penicillin V for treatment of dental infection. Take this medication as prescribed. Recommend ibuprofen 600 to 800 mg every 6 hours routinely for pain and inflammation. For pain not relieved by this, you may take 1 Tylenol #3 every 4 hours. Keep your appointment with your dentist as scheduled as this probable continue to recur until the tooth is fixed. Return to ER as needed. Sepsis Event Note (ED) - Evaluation Sepsis Screening Result: No Definite Risk - Focused Exam Vital Signs: Vital Signs Temp Pulse Resp BP Pulse Ox 05/10/21 13:10 98.8 F 91 18 131/80 97
== END 2020-09-26 14:30 | disposition home or self-care (01) ==
LOC: JD.ED 12:59
DX: K02.9 Dental caries, unspecified (principal); Z72.0 Tobacco use
CPT/HCPCS: 96372; 99282; A9270; J1170; J1885; 99283

== ENCOUNTER 2020-11-15 01:01 | Emergency (ER) | payer MEDICAID ==
--- NOTE | 2020-11-15 01:21 | EDM.PDOC ---
ED HPI GENERAL MEDICAL PROBLEM - General Chief Complaint: Skin Complaint Stated Complaint: groin pain Time Seen by Provider: 11/15/20 01:15 - History of Present Illness INITIAL COMMENTS - FREE TEXT/NARRATIVE: 35-year-old male presents the emergency room with a painful swelling just behind his right testicle. This started about 4 days ago and just progressively getting worse. He has not had any fevers or chills. No burning or frequency with urination. Patient denies any other symptoms associated with this. Patient is a history of hep C. Questionable seizures. And ulcerative colitis. He is not currently using any medications. Perineal Area Pain Score (Numeric/FACES): 8 - Related Data Allergies Allergy/AdvReac Type Severity Reaction Status Date / Time No Known Allergies Allergy Verified 11/15/20 01:17 Past Medical History HEENT History: Reports: Other (See Below) Other HEENT History: Dental Abscess Cardiovascular History: Reports: None Respiratory History: Reports: None Gastrointestinal History: Reports: GERD, Pancreatitis, PUD Other Gastrointestinal History: Ulcerative colitis Genitourinary History: Reports: None Musculoskeletal History: Reports: Fracture Other Musculoskeletal History: right hand--apparently suffered traumatic dislocation of the fourth and fifth metacarpals at the wrist with some sliver fractures of the carpal bones in late November of this year. Neurological History: Reports: Migraines, Seizure Psychiatric History: Reports: Addiction, Anxiety, Depression Endocrine/Metabolic History: Reports: None Hematologic History: Reports: None Immunologic History: Reports: None Oncologic (Cancer) History: Reports: None Dermatologic History: Reports: None - Infectious Disease History Infectious Disease History: Reports: Chicken Pox, Hepatitis C - Past Surgical History GI Surgical History: Reports: Cholecystectomy, Colonoscopy, EGD Other GI Surgeries/Procedures: hepatitis c Musculoskeletal Surgical History: Reports: Other (See Below) Other Musculoskeletal Surgeries/Procedures:: Pt has had multiple surgeries to the right hand/wrist due to a fracture and 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 Social & Family History - Family History Family Medical History: No Pertinent Family History - Caffeine Use Caffeine Use: Reports: Energy Drinks, Soda - Living Situation & Occupation Living situation: Reports: Single, with Family (Father) Occupation: Unemployed ED ROS GENERAL - Review of Systems Review Of Systems: See Below Constitutional: Reports: No Symptoms HEENT: Reports: No Symptoms Respiratory: Reports: No Symptoms Cardiovascular: Reports: No Symptoms GI/Abdominal: Reports: No Symptoms : Reports: Other (See history of present illness) Skin: Reports: Other (See HPI) ED EXAM, SKIN/RASH Exam: See Below Exam Limited By: No Limitations General Appearance: Alert, No Apparent Distress Head: Atraumatic, Normocephalic Neck: Normal Inspection, Supple, Non-Tender, Full Range of Motion. No: Lymphadenopathy (L), Lymphadenopathy (R) Respiratory/Chest: No Respiratory Distress, Lungs Clear, Normal Breath Sounds Cardiovascular: Regular Rate, Rhythm, No Edema, No Murmur GI/Abdominal: Normal Bowel Sounds, Soft, Non-Tender (Male) Exam: Scrotum Tenderness (R), Testicular Tenderness (R), Other (Mild swelling of the right scrotal contents posterior to this he has what looks like an abscess this appears to be extending more anterior at this point it looks difficult to drain.) Course - Vital Signs Last Recorded V/S: Last Vital Signs Temp 36.1 C 11/15/20 01:14 Pulse 97 11/15/20 01:14 Resp 20 11/15/20 01:14 BP 138/77 11/15/20 01:14 Pulse Ox 97 11/15/20 01:14 - Orders/Labs/Meds Orders: Active Orders 24 hr Category Date Time Status Scrotum and Contents [US] Stat Exams 11/15/20 01:31 Taken GC/CHLAMYDIA BY PCR [MOLEC] Stat Lab 11/15/20 03:58 Received Lactated Ringers [Ringers, Lactated] 1,000 ml Med 11/15/20 01:45 Active IV ASDIRECTED Medication Orders Lactated Ringer's (Ringers, Lactated) 1,000 mls @ 125 mls/hr IV ASDIRECTED SIVAKUMAR Last Admin: 11/15/20 01:51 Dose: 125 mls/hr Documented by: YAMILA Labs: Laboratory Tests 11/15/20 11/15/20 11/15/20 Range/Units 01:45 01:45 03:58 WBC 12.84 H (4.23-9.07) K/mm3 RBC 4.60 L (4.63-6.08) M/mm3 Hgb 13.7 D (13.7-17.5) gm/dl Hct 38.9 L (40.1-51.0) % MCV 84.6 D (79.0-92.2) fl MCH 29.8 (25.7-32.2) pg MCHC 35.2 (32.2-35.5) g/dl RDW Std Deviation 39.5 (35.1-43.9) fL Plt Count 228 D (163-337) K/mm3 MPV 9.3 L (9.4-12.3) fl Neutrophils % (Manual) 72 H (40-60) % Band Neutrophils % 0 (0-10) % Lymphocytes % (Manual) 18 L (20-40) % Atypical Lymphs % 0 % Monocytes % (Manual) 8 (2-10) % Eosinophils % (Manual) 2 (0.8-7.0) % Basophils % (Manual) 0 L (0.2-1.2) Platelet Estimate Adequate RBC Morph Comment Normal Sodium 156 H D (136-145) mEq/L Potassium 4.1 (3.5-5.1) mEq/L Chloride 117 H D (98-107) mEq/L Carbon Dioxide 27 (21-32) mEq/L Anion Gap 16.1 H (5-15) BUN 11 (7-18) mg/dL Creatinine 0.8 (0.7-1.3) mg/dL Est Cr Clr Drug Dosing 120.49 mL/min Estimated GFR (MDRD) > 60 (>60) mL/min BUN/Creatinine Ratio 13.8 L (14-18) Glucose 101 H (70-99) mg/dL Calcium 8.5 (8.5-10.1) mg/dL Total Bilirubin 0.4 (0.2-1.0) mg/dL AST 33 (15-37) U/L ALT 97 H (16-63) U/L Alkaline Phosphatase 78 (46-116) U/L Total Protein 7.3 (6.4-8.2) g/dl Albumin 3.6 (3.4-5.0) g/dl Globulin 3.7 gm/dL Albumin/Globulin Ratio 1.0 (1-2) Urine Color Yellow (Yellow) Urine Appearance Clear (Clear) Urine pH 6.0 (5.0-8.0) Ur Specific [place] > or = 1.030 (1.005-1.030) Urine Protein Negative (Negative) Urine Glucose (UA) Negative (Negative) Urine Ketones Negative (Negative) Urine Occult Blood Negative (Negative) Urine Nitrite Negative (Negative) Urine Bilirubin Negative (Negative) Urine Urobilinogen 0.2 (0.2-1.0) Ur Leukocyte Esterase Negative (Negative) Meds: Medications Generic Name Dose Route Start Last Admin Trade Name Kallie PRN Reason Stop Dose Admin Lactated Ringer's 1,000 mls @ 125 mls/hr 11/15/20 01:45 11/15/20 01:51 Ringers, Lactated IV 125 mls/hr ASDIRECTED SIVAKUMAR Administration Discontinued Medications Generic Name Dose Route Start Last Admin Trade Name Kallie PRN Reason Stop Dose Admin Hydromorphone HCl 0.5 mg 11/15/20 01:35 11/15/20 02:00 Hydromorphone 0.5 Mg/0.5 Ml Syringe IVPUSH 11/15/20 01:36 0.5 mg ONETIME ONE Administration Hydromorphone HCl 0.25 mg 11/15/20 03:54 11/15/20 04:04 Hydromorphone 0.5 Mg/0.5 Ml Syringe IVPUSH 11/15/20 03:55 0.25 mg ONETIME ONE Administration - Re-Assessments/Exams Free Text/Narrative Re-Assessment/Exam: 11/15/20 03:35 Ultrasound report is more consistent with a cellulitis rather than an abscess but this does not really go along with my physical. 11/15/20 04:59 I had the opportunity to discuss the situation with Dr. Gaston, on-call urologist at [facility] in [place]. He would like to see this patient. Case discussed with him at 04 54. He would like to see the patient in the emergency room so the case was discussed with Dr. Arzate emergency department physician at [facility] Departure - Departure Time of Disposition: 05:01 Disposition: DC/Tfer to Acute Hospital 02 Clinical Impression: Scrotal abscess, Cellulitis of scrotum - Discharge Information Referrals: PCP,None [Primary Care Provider] - Forms: ED Department Discharge Sepsis Event Note (ED) - Focused Exam Vital Signs: Vital Signs Temp Pulse Resp BP Pulse Ox 11/15/20 01:14 36.1 C 97 20 138/77 97 - My Orders Last 24 Hours: My Active Orders 11/15/20 01:31 Scrotum and Contents [US] Stat 11/15/20 01:45 Lactated Ringers [Ringers, Lactated] 1,000 ml IV ASDIRECTED 11/15/20 03:58 GC/CHLAMYDIA BY PCR [MOLEC] Stat - Assessment/Plan Last 24 Hours: My Active Orders 11/15/20 01:31 Scrotum and Contents [US] Stat 11/15/20 01:45 Lactated Ringers [Ringers, Lactated] 1,000 ml IV ASDIRECTED 11/15/20 03:58 GC/CHLAMYDIA BY PCR [MOLEC] Stat
[2020-11-15] MEDS ORDERED: HYDROmorphone 0.5 MG/0.5 ML Syringe IVPUSH ONE ×3 (01:35→03:54)
[2020-11-15] MEDS ORDERED: Lactated Ringers 1,000 ML IV SCH (01:45)
[2020-11-15] MEDS ORDERED: Piperacillin/Tazobactam 4.5 GM in Sodium Chloride 0.9% 100 ML IV ONE ×2 (04:53→05:00)
[2020-11-15 05:37] LABS: C. TRACHOMATIS BY PCR NOT DETECTED; N. GONORRHOEAE BY PCR NOT DETECTED
[2020-11-15 05:54] VITALS: BP 117/71; PULSE 78
--- NOTE | 2020-11-15 07:07 | US ---
Testicular ultrasound: Multiple real-time images of the testicles were obtained. Both testicles show no intratesticular abnormality. Arterial and venous blood flow are seen within the testicles. Right epididymis is slightly vascular in appearance. There is thickened tissue within the posterior scrotum which shows increased vasculature compatible with inflammatory change. Small 6 mm epididymal cyst is noted on the right side. Minimal fluid is seen around the right testicle. Measurements: Right testicle: 3.7 x 4.6 x 2.2 cm Left testicle: 4.7 x 2.9 x 2.2 cm Impression: 1. Thickened tissue within the posterior scrotum with increased vasculature presumably representing diffuse cellulitis. 2. Inflammatory change within the right epididymis compatible with epididymitis. 3. Other findings as noted above believed to be incidental. Diagnostic code #3 I agree with preliminary report from [facility], finalized on , 3:38 AM CDT
== END 2020-11-15 05:50 ==
LOC: JD.ED 01:01
DX: N49.2 Inflammatory disorders of scrotum (principal)
CPT/HCPCS: 36415; 76870; 80053; 81003; 85007; 85027; 87491; 87591; 93975; 96365; 96375; 96376; 99285; J1170; J2543; J7120; 99284

== ENCOUNTER 2020-11-16 13:13 | Emergency (ER) | payer MEDICAID ==
[2020-11-16 13:32] VITALS: BP 128/87; PULSE 88
--- NOTE | 2020-11-16 14:24 | EDM.PDOC ---
ED HPI GENERAL MEDICAL PROBLEM - General Chief Complaint: Wound Recheck Stated Complaint: WOUND RECHECK/ DRESSING CHANGED Time Seen by Provider: 11/16/20 13:41 Source of Information: Reports: Patient, RN Notes Reviewed - History of Present Illness INITIAL COMMENTS - FREE TEXT/NARRATIVE: 35 yr old male had a scrotal abcess drained in [place] yesterday. Is supposed to do daily dressing changes but claims he doesn't understand what to do. Also looking for pain medication. Has been on suboxone. States he has been off that for about 3 wks. [facility] was given a prescription by Dr Ellington yesterday but [place] pharmacy refused to fill it because of being on suboxone. Treatments [employer]: Reports: NSAIDS Groin Pain Score (Numeric/FACES): 8 - Related Data Allergies Allergy/AdvReac Type Severity Reaction Status Date / Time No Known Allergies Allergy Verified 11/16/20 13:26 Home Meds: Home Meds Acetaminophen/oxyCODONE [Percocet 325-5 MG] 1 each PO Q6HR PRN #10 tab 11/16/20 [Rx] Amoxicillin/Potassium Clav [Augmentin 875-125 Tablet] 1.5 tab PO DAILY 11/16/20 [History] Ibuprofen [Motrin] 600 mg PO ASDIRECTED PRN 11/16/20 [History] Past Medical History HEENT History: Reports: Other (See Below) Other HEENT History: Dental Abscess Cardiovascular History: Reports: None Respiratory History: Reports: None Gastrointestinal History: Reports: GERD, Pancreatitis, PUD Other Gastrointestinal History: Ulcerative colitis Genitourinary History: Reports: Other (See Below) Other Genitourinary History: cyst under scrotum I&D 11/15/20 Musculoskeletal History: Reports: Fracture Other Musculoskeletal History: right hand--apparently suffered traumatic dislocation of the fourth and fifth metacarpals at the wrist with some sliver fractures of the carpal bones in late November of this year. Neurological History: Reports: Migraines, Seizure Psychiatric History: Reports: Addiction, Anxiety, Depression Endocrine/Metabolic History: Reports: None Hematologic History: Reports: None Immunologic History: Reports: None Oncologic (Cancer) History: Reports: None Dermatologic History: Reports: Cellulitis - Infectious Disease History Infectious Disease History: Reports: Chicken Pox, Hepatitis C - Past Surgical History GI Surgical History: Reports: Cholecystectomy, Colonoscopy, EGD Other GI Surgeries/Procedures: hepatitis c Musculoskeletal Surgical History: Reports: Other (See Below) Other Musculoskeletal Surgeries/Procedures:: Pt has had multiple surgeries to the right hand/wrist due to a fracture and 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 Social & Family History - Family History Family Medical History: No Pertinent Family History - Tobacco Use Tobacco Use Status *Q: Current Every Day Tobacco User Years of Tobacco use: 10 Packs/Tins Daily: 1 - Caffeine Use Caffeine Use: Reports: Coffee, Soda - Recreational Drug Use Recreational Drug Use: Yes Drug Use in Last 12 Months: Yes Recreational Drug Type: Reports: Codiene, Heroin, Marijuana/Hashish, Methamphetamine Recreational Drug Use Frequency: Not Used In Over 6 Months - Living Situation & Occupation Living situation: Reports: Single, with Family (Father) Occupation: Unemployed ED ROS GENERAL - Review of Systems Review Of Systems: See Below Constitutional: Denies: Fever, Chills HEENT: Reports: No Symptoms Respiratory: Reports: No Symptoms Cardiovascular: Reports: No Symptoms GI/Abdominal: Reports: No Symptoms : Reports: Other (scrotal pain) Neurological: Reports: No Symptoms ED EXAM, RENAL/ - Physical Exam Exam: See Below General Appearance: Alert, No Apparent Distress Head: Atraumatic Neck: Supple Respiratory/Chest: No Respiratory Distress (Male) Exam: Other (open wound inf margin of scrotum with small amt of p urulent drainage, scotum not otherwise swollen or inflamed) Extremities: Normal Inspection Neurological: Alert, Oriented, No Motor/Sensory Deficits Skin Exam: Warm, Dry, Normal Color Course - Vital Signs Last Recorded V/S: Last Vital Signs Temp 97.5 F 11/16/20 13:30 Pulse 88 11/16/20 13:30 Resp 18 11/16/20 13:30 BP 128/87 11/16/20 13:30 Pulse Ox 100 11/16/20 13:30 - Re-Assessments/Exams Free Text/Narrative Re-Assessment/Exam: 11/16/20 20:32 I did send a prescription for 10 percocet to his pharmacy. However his pharmacist checked, Dr Ellington did not prescribe anything for him or plan for him to be on opiods for this. Therefore pharmacy did not fill today's prescription. I am in total agreement with that plan. Departure - Departure Time of Disposition: 14:43 Disposition: Home, Self-Care 01 Condition: Fair Clinical Impression: Abscess of scrotum - Discharge Information Prescriptions: Acetaminophen/oxyCODONE [Percocet 325-5 MG] 1 each PO Q6HR PRN #10 tab PRN Reason: Pain Instructions: Incision and Drainage, Care After Referrals: PCP,None [Primary Care Provider] - Forms: ED Department Discharge Additional Instructions: Continue daily dressing change and wound irrigation. Continue antibiotic as prescribed. prescription for percocet 5/325 has been sent to [email or web address] to be used if needed for severe pain only. Follow up clinic next week as advised. Sepsis Event Note (ED) - Evaluation Sepsis Screening Result: No Definite Risk - Focused Exam Vital Signs: Vital Signs Temp Pulse Resp BP Pulse Ox 11/16/20 13:30 97.5 F 88 18 128/87 100
== END 2020-11-16 14:55 | disposition home or self-care (01) ==
LOC: JD.ED 13:13
DX: N49.2 Inflammatory disorders of scrotum (principal); Z72.0 Tobacco use
CPT/HCPCS: 99283